=== PATIENT | male | born 1985 | race Two or more races ===

== ENCOUNTER 2025-01-30 23:54 | Inpatient (IN) | payer SELFPAY ==
[~2025-01-30] VITALS: Ht 170.2 cm; Wt 81.1 kg
[2025-01-31] VITALS (9 sets, daily range): BP systolic 99–127; BP diastolic 58–94; PULSE 40–110; RESP 16–20; TEMP 97.7–98.3; O2SAT 94–98
--- NOTE | 2025-01-31 00:38 | ED.PDOC ---
History of Present Illness HPI Comments 39 y/o M presents with 3x day history of diffused abdominal and bilateral leg swelling, orthopnea, constipation, and oliguria. Patient is a poor historian. He endorses on progressively worsening symptoms following initial, unprovoked onset. No prior history of symptoms in the past. Only significant history of DM I. Denies any chest or abdominal pain, palpitations, dizziness, nausea, vomiting, or further associated symptoms. Time Seen by MD: 00:20 Reviewed Notes: Nurses Notes, Medications, Allergies Allergies: Coded Allergies: NO KNOWN ALLERGIES (Unverified , 01/31/25) Information Source: Patient Mode of Arrival: Ambulatory Severity: Moderate Timing: Days Duration: Since onset Prehospital treatment: None Past Medical History PAST MEDICAL HISTORY: DM (type I ) Surgical History: Denies all surgeries Family History Family History: Unknown Social History Smoker: Non-Smoker Alcohol: Denies ETOH Use Drugs: Denies Drug Use Lives In: Home All Other Systems: Reviewed and Negative (Comprehensive systems review obtained and negative except for what is stated in the HPI.) Physical Exam General Appearance: No Apparent Distress, Normal HEENT: Normal ENT Inspection, Pharynx Normal, TMs Normal Neck: Full Range of Motion, Non-Tender, Normal, Normal Inspection Respiratory: Chest Non-Tender, Lungs Clear, No Accessory Muscle Use, No Respiratory Distress, Normal Breath Sounds Cardiovascular: No Edema, No JVD, No Murmur, No Gallop, Normal Peripheral Pulses, Regular Rate/Rhythm Breast Exam: Deferred Gastrointestinal: No Organomegaly, Non Tender, No Pulsatile Mass, Normal Bowel Sounds, Soft Genitalia: Deferred Pelvic: Deferred Rectal: Deferred Extremities: No calf tenderness, Normal capillary refill, Normal inspection, Normal range of motion, Non-tender, No pedal edema Musculoskeletal : Apperance: Normal 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 Was a procedure done?: No Differential Dx Considerations may include: new onset of heart failure, fluid retention, PE, URI, PNA, constipated, liver failure, among others X-Ray, Labs, Meds, VS Vital Signs Date Time Temp Pulse Resp B/P (MAP) Pulse Ox O2 Delivery O2 Flow Rate FiO2 7/1/25 00:44 97.7 60 16 11/75 (54) 98 97.7 Lab Test 01/31/25 01:24 01/31/25 00:43 Range/Units Troponin I High Sensitivity Pending 25 </=54 ng/L White Blood Count 8.4 4.4-10.8 10^3/uL Red Blood Count 5.21 4.5-5.90 10^6/uL Hemoglobin 15.2 13.5-17.5 g/dL Hematocrit 45.3 41.0-53.0 % Mean Corpuscular Volume 86.9 80.0-100.0 fL Mean Corpuscular Hemoglobin 29.2 28.0-32.0 pg Mean Corpuscular Hemoglobin Concent 33.6 32.0-36.0 g/dL Red Cell Distribution Width 14.7 H 11.8-14.3 % Platelet Count 195 140-450 10^3/uL Mean Platelet Volume 9.8 6.9-10.8 fL Neutrophils (%) (Auto) 59.8 37.0-80.0 % Lymphocytes (%) (Auto) 31.9 10.0-50.0 % Monocytes (%) (Auto) 7.5 0.0-12.0 % Eosinophils (%) (Auto) 0.5 0.0-7.0 % Basophils (%) (Auto) 0.3 0.0-2.0 % Neutrophils # (Auto) 5.0 1.6-8.6 10 ^3/uL Lymphocytes # (Auto) 2.7 0.4-5.4 10 ^3/uL Monocytes # (Auto) 0.6 0-1.3 10 ^3/uL Eosinophils # (Auto) 0 0-0.8 10 ^3/uL Basophils # (Auto) 0 0-0.2 10 ^3/uL Nucleated Red Blood Cells 0.2 % Sodium Level 139 136-145 mmol/L Potassium Level 4.9 3.5-5.1 mmol/L Chloride Level 106 98-107 mmol/L Carbon Dioxide Level 24 20-31 mmol/L Anion Gap 9 5-15 Blood Urea Nitrogen 22 9-23 mg/dL Creatinine 1.36 H 0.700-1.30 mg/dL Glomerular Filtration Rate Calc 67 >90 mL/min BUN/Creatinine Ratio 16.2 10.0-20.0 Serum Glucose 226 H 74-106 mg/dL Calcium Level 9.3 8.7-10.4 mg/dL B-Type Natriuretic Peptide 991.85 0-100 pg/mL Time of 1ST Reevaluation: 00:50 Reevaluation 1ST: Unchanged Patient Education/Counseling: Diagnosis, Treatment Family Education/Counseling: No Family Present Additional Information Reviewed patient's previous visit(s): N/A The following tests were ordered, and results were reviewed by me: CT abdomen/pelvis w/o contrast, CXR, CBC, BMP, BNP, troponin Additional information was gathered from interviewing the following independent historian: N/A I reviewed and agreed with the following test results read by other provider: CT abdomen/pelvis w/o contrast, CXR I discussed treatments and results with medical personnel and: Patient SEPSIS Sepsis Screen Physician Orders Chest Portable (01/31/25 00:28) Troponin-I Hs (01/31/25 01:28) Troponin-I Hs (01/31/25 03:28) Ct Ab Pel Wo Con-No Oral Or Iv (01/31/25 00:28) Vital Signs Date Time Temp Pulse Resp B/P (MAP) Pulse Ox O2 Delivery O2 Flow Rate FiO2 01/31/25 00:44 97.7 60 16 11/75 (54) 98 97.7 Laboratory Tests Test 01/31/25 00:43 White Blood Count 8.4 10^3/uL (4.4-10.8) Departure 1 Departure Time of Disposition: 02:07 (Patietn likely with volume overload from possible heart failure. will admit patient for further workup and expert consultaiton.) Impression: Primary Impression: Pleural effusion Additional Impression: Lower extremity edema Disposition: 09 ADMITTED INPATIENT Admit to: Med Surg Condition: Serious Critical Care Note Critical Care Time?: No Stability Stability form required: No Heart Score Heart Score: Heart Score Response (Comments) Value History N/A 0 EKG N/A 0 Age N/A 0 Risk Factors N/A 0 Troponin N/A 0 Total 0 I personally scribed for ELISE DUTTON MD ([email or web address]) on 01/31/25 at 00:38. Electronically submitted by Jamaal Huitron ([email or web address]). ELISE DUTTON MD Jan 31, 2025 00:38
[2025-01-31 01:00] LABS: Hematocrit 45.3 % (41.0-53.0); Hemoglobin 15.2 g/dL (13.5-17.5); Mean Corpuscular Hemoglobin 29.2 pg (28.0-32.0); Mean Corpuscular Volume 86.9 fL (80.0-100.0); Nucleated Red Blood Cells % 0.2 %
[2025-01-31 01:07] LABS: Chloride 106 mmol/L (98-107); Potassium 4.9 mmol/L (3.5-5.1); Sodium 139 mmol/L (136-145)
[2025-01-31 01:08] LABS: Anion Gap 9 (5-15); Carbon Dioxide 24 mmol/L (20-31)
[2025-01-31 01:09] LABS: Calcium 9.3 mg/dL (8.7-10.4)
--- NOTE | 2025-01-31 01:11 | DVH ---
CHEST RADIOGRAPH Indication: lower extremity swelling Technique: Single frontal view of the chest was obtained COMPARISON: None FINDINGS: Lines and Tubes: None Lungs: Clear Pleura: Small bilateral pleural effusions. No pneumothorax. Cardiomediastinal contours: Cardiomegaly. Bones: Unremarkable IMPRESSION: 1. Small bilateral pleural effusions and cardiomegaly.
[2025-01-31 01:13] LABS: BUN/Creatinine Ratio 16.2 (10.0-20.0); Blood Urea Nitrogen 22 mg/dL (9-23)
[2025-01-31 01:15] LABS: Glucose 226 mg/dL (74-106)
--- NOTE | 2025-01-31 01:41 | DVH ---
Exam: CT CT AB PEL WO CON-NO ORAL OR IV History: abdominal swelling Comparison Study: None Technique: Multidetector spiral CT of the abdomen was performed from lung bases to pubic symphysis. I maging was performed without IV contrast. Axial, coronal and sagittal multiplanar reformats were obta ined from the axial data set by the technologist. Radiation Dose : 1. Abdomen/Pelvis: CTDIvol 15.22 mGy, DLP 903.61 mGy*cm. Findings: Evaluation of solid organs is limited due to lack of intravenous contrast use. Lung Bases: Large bilateral pleural effusions, vgncg-kajfrza-gedp-left, with adjacent atelectasis and lobar collapse. Cardiomegaly and trace pericardial effusion. Liver: The liver is normal in size. No focal lesions. Gallbladder and Biliary Tree: Moderate pericholecystic edema. Spleen: Unremarkable Pancreas: The pancreas is grossly normal in appearance. Adrenal Glands: Unremarkable Kidneys: Kidneys are grossly normal without calculi or hydronephrosis. Bladder: Grossly unremarkable for degree of distention. Bowel: The stomach is grossly normal in appearance. Small bowel and colon are normal in caliber and d istribution. The appendix is not visualized; however, no secondary findings of acute appendicitis salo ntified. Ascites: Moderate abdominopelvic ascites. Lymphadenopathy: No mesenteric, retroperitoneal or periportal lymphadenopathy. Abdominal Wall and Mesentery: Unremarkable. Vasculature: The visualized abdominal aorta is normal in size and caliber. Atherosclerotic vascular c alcifications. Evaluation of abdominal and pelvic vessels is limited due to lack of intravenous cont rast. Pelvic Organs: Unremarkable Musculoskeletal: No aggressive focal bony lesions, acute fractures or dislocation. IMPRESSION: 1. Large bilateral pleural effusions, ambrb-ydtoeoi-uosa-left, with adjacent atelectasis and lobar co llapse. 2. Cardiomegaly and trace pericardial effusion. 3. Moderate pericholecystic edema. 4. Moderate abdominopelvic ascites. Radiation optimization: All CT scans at this facility use at least one of these dose optimization mahi hniques: automated exposure control mA and/or kV adjustment per patient size (includes targeted exam s where dose is matched to clinical indication) or iterative reconstruction.
[2025-01-31] MEDS: FUROSEMIDE 40 MG/4 ML VIAL IV ONE (03:50)
[2025-01-31] MEDS ORDERED: TEMAZEPAM 15 MG CAP PO PRN (04:15)
[2025-01-31] MEDS ORDERED: NITROGLYCERIN 0.4 MG SL TAB SL PRN (04:15)
[2025-01-31] MEDS ORDERED: ACETAMINOPHEN 325 MG TAB PO PRN (04:15)
[2025-01-31] MEDS ORDERED: DEXTROSE (50%) 50ML SYRG IV PRN (04:15)
[2025-01-31] MEDS ORDERED: MORPHINE SULFATE INJ 2 MG/ml SYRG IV PRN (04:15)
[2025-01-31] MEDS ORDERED: ONDANSETRON HCL 4 MG/2 ML VIAL IV PRN (04:15)
--- NOTE | 2025-01-31 04:21 | DVHHP2 ---
History of Present Illness Reason for Visit: Shortness for breath History of Present Illness 39-year-old male with a history of diabetes mellitus congestive heart failure presents for evaluation of shortness for breath. Patient reports a two day history of worsening shortness for breath with associated leg swelling, abdominal distention and orthopnea. Denies cough or fever. No other acute complaints reported Past Medical History Diabetes mellitus and congestive heart failure Past Surgical History Denies Family History Noncontributory Smoke: No ALCOHOL: occassional Drugs: None Lives: with Family Review of Systems Review of Systems Review of systems are currently negative otherwise addressed in HPI. Allergies: Coded Allergies: NO KNOWN ALLERGIES (Unverified , 01/31/25) Exam Vital Signs Vital Signs Date Time Temp Pulse Resp B/P (MAP) Pulse Ox O2 Delivery O2 Flow Rate FiO2 01/31/25 04:00 122/84 01/31/25 03:43 40 01/31/25 03:17 20 98 Room Air 01/31/25 03:17 97.8 97.8 Exam Gen: 39-year-old male in mild distress Skin: Warm, dry, normal color and texture, no rash. HEENT: Normocephalic atraumatic, mucous membranes moist and pink. Neck: Cervical and supraclavicular nodes normal without enlargement, trachea is midline, thyroid gland is normal without masses. Pulmonary: Clear to auscultation and percussion bilaterally. Cardiac: Regular rate and rhythm. No murmur Abdomen: Soft, nontender, nondistended, bowel sounds present all 4 quadrants, no guarding, no rigidity, no organomegaly. Extremities: No cyanosis, clubbing, assessment and bilateral pedal edema Neuro: Cranial nerves II through XII grossly intact, normal affect and speech, no focal motor deficits. Labs/Xrays ORDERING PHYSICIAN: ELISE DUTTON MD PROCEDURE(s): ABPL - CT AB PEL WO CON-NO ORAL OR IV REASON: abdominal swelling ORDER NUMBER(s): [id number], ACCESSION NUMBER(s): [id number] Exam: CT CT AB PEL WO CON-NO ORAL OR IV History: abdominal swelling Comparison Study: None Technique: Multidetector spiral CT of the abdomen was performed from lung bases to pubic symphysis. Imaging was performed without IV contrast. Axial, coronal and sagittal multiplanar reformats were obtained from the axial data set by the technologist. Radiation Dose : 1. Abdomen/Pelvis: CTDIvol 15.22 mGy, DLP 903.61 mGy*cm. Findings: Evaluation of solid organs is limited due to lack of intravenous contrast use. Lung Bases: Large bilateral pleural effusions, dbacm-hdewtgm-zjve-left, with adjacent atelectasis and lobar collapse. Cardiomegaly and trace pericardial effusion. Liver: The liver is normal in size. No focal lesions. Gallbladder and Biliary Tree: Moderate pericholecystic edema. Spleen: Unremarkable Pancreas: The pancreas is grossly normal in appearance. Adrenal Glands: Unremarkable Kidneys: Kidneys are grossly normal without calculi or hydronephrosis. Bladder: Grossly unremarkable for degree of distention. Bowel: The stomach is grossly normal in appearance. Small bowel and colon are normal in caliber and distribution. The appendix is not visualized; however, no secondary findings of acute appendicitis identified. Ascites: Moderate abdominopelvic ascites. Lymphadenopathy: No mesenteric, retroperitoneal or periportal lymphadenopathy. Abdominal Wall and Mesentery: Unremarkable. Vasculature: The visualized abdominal aorta is normal in size and caliber. Atherosclerotic vascular calcifications. Evaluation of abdominal and pelvic vessels is limited due to lack of intravenous contrast. Pelvic Organs: Unremarkable Musculoskeletal: No aggressive focal bony lesions, acute fractures or dislocation. IMPRESSION: 1. Large bilateral pleural effusions, vcatj-thoradx-nfgc-left, with adjacent atelectasis and lobar collapse. 2. Cardiomegaly and trace pericardial effusion. 3. Moderate pericholecystic edema. 4. Moderate abdominopelvic ascites. Radiation optimization: All CT scans at this facility use at least one of these dose optimization techniques: automated exposure control mA and/or kV adjustment per patient size (includes targeted exams where dose is matched to clinical indication) or iterative reconstruction. ATED BY: ROSIBEL CHEEK MD Labs Test 01/31/25 03:29 01/31/25 00:43 Range/Units Troponin I High Sensitivity 25 </=54 ng/L White Blood Count 8.4 4.4-10.8 10^3/uL Red Blood Count 5.21 4.5-5.90 10^6/uL Hemoglobin 15.2 13.5-17.5 g/dL Hematocrit 45.3 41.0-53.0 % Mean Corpuscular Volume 86.9 80.0-100.0 fL Mean Corpuscular Hemoglobin 29.2 28.0-32.0 pg Mean Corpuscular Hemoglobin Concent 33.6 32.0-36.0 g/dL Red Cell Distribution Width 14.7 H 11.8-14.3 % Platelet Count 195 140-450 10^3/uL Mean Platelet Volume 9.8 6.9-10.8 fL Neutrophils (%) (Auto) 59.8 37.0-80.0 % Lymphocytes (%) (Auto) 31.9 10.0-50.0 % Monocytes (%) (Auto) 7.5 0.0-12.0 % Eosinophils (%) (Auto) 0.5 0.0-7.0 % Basophils (%) (Auto) 0.3 0.0-2.0 % Neutrophils # (Auto) 5.0 1.6-8.6 10 ^3/uL Lymphocytes # (Auto) 2.7 0.4-5.4 10 ^3/uL Monocytes # (Auto) 0.6 0-1.3 10 ^3/uL Eosinophils # (Auto) 0 0-0.8 10 ^3/uL Basophils # (Auto) 0 0-0.2 10 ^3/uL Nucleated Red Blood Cells 0.2 % Sodium Level 139 136-145 mmol/L Potassium Level 4.9 3.5-5.1 mmol/L Chloride Level 106 98-107 mmol/L Carbon Dioxide Level 24 20-31 mmol/L Anion Gap 9 5-15 Blood Urea Nitrogen 22 9-23 mg/dL Creatinine 1.36 H 0.700-1.30 mg/dL Glomerular Filtration Rate Calc 67 >90 mL/min BUN/Creatinine Ratio 16.2 10.0-20.0 Serum Glucose 226 H 74-106 mg/dL Calcium Level 9.3 8.7-10.4 mg/dL B-Type Natriuretic Peptide 991.85 0-100 pg/mL Assessment/Plan Assessment/Plan Assessment Acute on chronic congestive heart failure Diabetes mellitus Acute kidney injury Bradycardia Plan Admit the patient to telemetry to the hospitalist Cardiology consult IV Lasix Resume home medications Continue treatment per orders. Plan discussed with: Patient My Orders Orders - ADAM CABAN Procedure Category Date Status Time Furosemide Injection PHA 01/31/25 Transmitted (Lasix Injection) 18:00 * Cardiology Consult CONS 01/31/25 Transmitted 04:13 Consistent DIET 01/31/25 Transmitted Carb(Ccho)Diabetes Breakfast Glucose Blood PHA 01/31/25 Transmitted (Accu-Chek Comfort 07:00 Mild Sliding Scale PHA 01/31/25 Transmitted 07:00 Dextrose 50% Syringe PHA 01/31/25 Transmitted 04:15 Admit ADMIT 01/31/25 Transmitted 04:13 Temazepam (Restoril) [facility] 01/31/25 Transmitted 04:[address] [facility] 01/31/25 Transmitted (Zofran) 04:15 Echo 2d Mode Cardiac US 01/31/25 Transmitted DOP 04:13 Condition: Stable [facility] 01/31/25 Transmitted 04:[address] [facility] 01/31/25 Transmitted (Tylenol Tablet) 04:15 Bedrest With Bathroom [facility] 01/31/25 Transmitted Privileg 04:[address] [facility] 01/31/25 Transmitted Sublingual (Ntrostat 04:[address] [facility] 01/31/25 Transmitted Injection 04:15 Stat Ekg For Chest [facility] 01/31/25 Transmitted Pain 04:13 Notify Md Of Changes [facility] 01/31/25 Transmitted From Base 04:13 Observatory Director For [facility] 01/31/25 Transmitted 24 Hours 04:13 Emergency Dysrhythmia [facility] 01/31/25 Transmitted Protocol 04:13 Rhythm Strips Once [facility] 01/31/25 Transmitted Every Shift 04:13 Oxygen By Nasal 01/31/25 Transmitted Cannula 04:13 Comprehensive LAB 02/01/25 Verified Metabolic Panel 04:[address] [facility] 01/31/25 Verified (Ventolin Medneb) 04:30 Date of Service: Jan 31, 2025 Billing Provider: ADAM CABAN Common Visit Codes: [id number] INP/OBS CARE (HIGH) ADAM CABAN Jan 31, 2025 04:21
[2025-01-31] MEDS ORDERED: ALBUTEROL SULF 2.5 MG/0.5ML(0.5%) NEB SOLN NEB PRN (04:30)
[2025-01-31] MEDS: ACCU-CHEK COMFORT CURVE STRIP VI SCH (06:22)
[2025-01-31] MEDS: InsuLIN REG 1unit/0.01ml Soln (100units/ml) SC SCH (06:24)
[2025-01-31 09:36] LABS: Alanine Aminotransferase 25.0 U/L (7-40); Albumin 4.6 g/dL (3.2-4.8); Alkaline Phosphatase 58.0 U/L (46-116); Bilirubin, Direct 0.4 mg/dL (<0.3); Bilirubin, Total 1.0 mg/dL (0.2-1.0); Cholesterol 150.0 mg/dL (< 200); HDL Cholesterol 34.0 mg/dL (40-59); Magnesium 1.8 mg/dL (1.6-2.6); Total Protein 6.7 g/dL (5.7-8.2); Triglycerides 146.0 mg/dL (< 150)
--- NOTE | 2025-01-31 11:06 | DVH ---
INDICATION: cirrhosis , pain TECHNIQUE: Multiple real-time sonographic images were obtained of the right upper quadrant. COMPARISON: None FINDINGS: The liver demonstrates coarsened echotexture without focal mass lesions. The liver measures 14 cm. The common duct is not well visualized due to obscuration from bowel gas. Trace ascites. P artially visualized small bilateral pleural effusion. The gallbladder is without evidence of stone or sludge. The gallbladder wall measures 3 mm and is wi thin normal limits. The right kidney measures 9.7 cm. The right kidney is normal in contour, size, and shape. The echoge nicity is normal. There is no hydronephrosis. The pancreas is not well visualized due to overlying bowel gas. IMPRESSION: Coarsened liver echotexture suggestive of chronic liver disease. Trace ascites. Partially visualize d small bilateral pleural effusion.
[2025-01-31] MEDS: FUROSEMIDE 20 MG/2 ML VIAL IV SCH (12:30)
--- NOTE | 2025-01-31 15:44 | DVHPN2 ---
Progress Note Date Seen: Jan 31, 2025 Resident Creating Document: ABDULKADIR GUARDADO RESDIANNIE Medical Necessity Reason Pt with a Central, PICC or Fol: No Objective vital signs Vital Sign Date Time Temp Pulse Resp B/P (MAP) Pulse Ox O2 Delivery O2 Flow Rate FiO2 01/31/25 13:18 98.0 97 16 104/58 (73) 97 98.0 01/31/25 08:25 Room Air* 0 21 medications Current Medications Medications Dose Ordered Sig/Shnaika Route Start Time Stop Time Status Last Admin Dose Admin Diagnostic Test (Pha) 1 strip ACHS 01/31/25 07:00 01/31/25 11:33 1 STRIP Insulin Human Regular ACHS SC 01/31/25 07:00 01/31/25 11:33 3 UNITS Dextrose 50 ml UD PRN IV 01/31/25 04:15 Ondansetron HCl 4 mg Q4HP PRN IV 01/31/25 04:15 Acetaminophen 650 mg Q6HP PRN PO 01/31/25 04:15 Nitroglycerin 0.4 mg Q5MINP PRN SL 01/31/25 04:15 Morphine Sulfate 2 mg Q30M PRN IV 01/31/25 04:15 Albuterol 2.5 mg Q6HPRN PRN NEB 01/31/25 04:30 Furosemide 40 mg BIDD IV 01/31/25 12:30 Empaglifozin 10 mg DAILY PO 02/01/25 10:00 laboratory and microbiology Laboratory Tests 01/31/25 00:43 Test 01/31/25 00:43 Range/Units Serum Glucose 226 H 74-106 mg/dL My Orders My Orders Orders - ABDULKADIR GUARDADO Procedure Category Date Status Time Drug Screen LAB 01/31/25 Logged 09:10 LIVER US 01/31/25 Resulted 09:14 Furosemide Injection PHA 01/31/25 In Process (Lasix Injection) 12:30 Strict I & O SANGITA 01/31/25 In Process 12:17 Empagliflozin PHA 02/01/25 In Process (Jardiance) 10:00 ABDULKADIR GUARDADO RESDIENT Jan 31, 2025 15:44
--- NOTE | 2025-01-31 15:57 | DVHCONRES ---
Date Seen: Jan 31, 2025 Resident Creating Document: ABDULKADIR GUARDADO RESDIENT History of Present Illness This is a 39-year-old male with past medical history of diabetes came to the hospital due to bilateral lower limb swelling and shortness of breaths. Per patient, he has exertional shortness of breaths since 2 months which has progressively worsened and prompted this visit. He also reports of orthopnea, PND, exertional chest discomfort and cough. He denies palpitation, fever, or any recent sick contacts and chest trauma. Patient does not have any PCP or pl sql developer, but was seen by a doctor 2 months back due to cough/shortness of breaths and was prescribed Lasix 20 mg daily, KCl, albuterol and cough suppressant. PMHx: Diabetes type 2 PSHx: Noncontributory Family history: Nonsignificant Social history: Denies smoking, alcohol or any other drug use Home medication: Lasix 20 mg daily, KCl 10 mEq daily, benzonatate and albuterol Allergic history: No known allergy Patient seen and examined at the bedside patient is still complaining of shortness of breaths and bilateral lower limb swelling. Family History: Patient reports no known family medical history. Allergies: Coded Allergies: NO KNOWN ALLERGIES (Unverified , 01/31/25) Home Meds Unable to Obtain Active Prescriptions or Reported Meds Current Medications Current Medications Medications (Trade) Dose Ordered Sig/Shanika Route PRN Reason Start Time Stop Time Status Last Admin Furosemide (Lasix Injection) 20 mg BIDD IV 01/31/25 18:00 01/31/25 12:19 DC Diagnostic Test (Pha) (Accu-Chek Comfort Curve T) 1 strip ACHS 01/31/25 07:00 01/31/25 11:33 Insulin Human Regular (InsuLIN R) ACHS SC 01/31/25 07:00 01/31/25 11:33 Dextrose 50 ml UD PRN IV Blood Sugar LESS THAN 60 01/31/25 04:15 Temazepam (Restoril) 15 mg QHSP PRN PO FOR INSOMNIA 01/31/25 04:15 01/31/25 11:28 DC Ondansetron HCl (Zofran) 4 mg Q4HP PRN IV NAUSEA / VOMITING 01/31/25 04:15 Acetaminophen (Tylenol Tablet) 650 mg Q6HP PRN PO PAIN SCALE 1-3 OR TEMP>100.4 01/31/25 04:15 Nitroglycerin (Ntrostat Sublingual) 0.4 mg Q5MINP PRN SL FOR CHEST PAIN 01/31/25 04:15 Morphine Sulfate 2 mg Q30M PRN IV FOR CHEST PAIN 01/31/25 04:15 Albuterol (Ventolin Medneb) 2.5 mg Q6HPRN PRN NEB SHORTNESS OF BREATH 01/31/25 04:30 Furosemide (Lasix Injection) 40 mg BIDD IV 01/31/25 12:30 Empaglifozin (Jardiance) 10 mg DAILY PO 02/01/25 10:00 Vital Signs Vital Signs Date Time Temp Pulse Resp B/P (MAP) Pulse Ox O2 Delivery O2 Flow Rate FiO2 01/31/25 13:18 98.0 97 16 104/58 (73) 97 98.0 01/31/25 08:25 Room Air* 0 21 Physical Exam General Appearance: Alert, Oriented X3, Cooperative, No acute distress HEENT: Atraumatic, PERRLA, EOMI, Mucous membrane moist/pink Respiratory: Bilateral mid zone crackles, and bilaterally decreased breath sound Cardiovascular: Regular rate, Normal S1, Normal S2, No murmurs, no chest wall tenderness Abdominal: Abdomen distended, soft and nontender Extremities: Bilateral lower limb grade 3 pedal edema Skin: No rashes, No breakdown, No significant lesion Neuro: Normal gait, Normal speech, Strength at 5/5 X4 ext, Normal tone, Sensation intact, Cranial nerves 3-12 NL, Reflexes 2+ Psych/Mental Status: Mental status NL, Mood NL Labs/Diagnostic Data Labs Test 01/31/25 11:11 01/31/25 09:25 01/31/25 03:29 01/31/25 01:24 Range/Units POC Glucose 170 H 70-106 mg/dl Plasma/Serum Blood Alcohol < 3.0 <10 mg/dL Troponin I High Sensitivity 25 </=54 ng/L Thyroid Stimulating Hormone (TSH) 4.18 0.55-4.78 uIU/mL Magnesium Level 1.8 1.6-2.6 mg/dL Total Bilirubin 1.0 0.2-1.0 mg/dL Direct Bilirubin 0.4 H <0.3 mg/dL Aspartate Amino Transferase (AST) 21 13-40 U/L Alanine Aminotransferase (ALT) 25 7-40 U/L Alkaline Phosphatase 58 46-116 U/L Total Protein 6.7 5.7-8.2 g/dL Albumin 4.6 3.2-4.8 g/dL Triglycerides Level 146 < 150 mg/dL Cholesterol Level 150 < 200 mg/dL LDL Cholesterol 107 H < 100 mg/dL HDL Cholesterol 34 L 40-59 mg/dL Test 01/31/25 00:43 Range/Units White Blood Count 8.4 4.4-10.8 10^3/uL Red Blood Count 5.21 4.5-5.90 10^6/uL Hemoglobin 15.2 13.5-17.5 g/dL Hematocrit 45.3 41.0-53.0 % Mean Corpuscular Volume 86.9 80.0-100.0 fL Mean Corpuscular Hemoglobin 29.2 28.0-32.0 pg Mean Corpuscular Hemoglobin Concent 33.6 32.0-36.0 g/dL Red Cell Distribution Width 14.7 H 11.8-14.3 % Platelet Count 195 140-450 10^3/uL Mean Platelet Volume 9.8 6.9-10.8 fL Neutrophils (%) (Auto) 59.8 37.0-80.0 % Lymphocytes (%) (Auto) 31.9 10.0-50.0 % Monocytes (%) (Auto) 7.5 0.0-12.0 % Eosinophils (%) (Auto) 0.5 0.0-7.0 % Basophils (%) (Auto) 0.3 0.0-2.0 % Neutrophils # (Auto) 5.0 1.6-8.6 10 ^3/uL Lymphocytes # (Auto) 2.7 0.4-5.4 10 ^3/uL Monocytes # (Auto) 0.6 0-1.3 10 ^3/uL Eosinophils # (Auto) 0 0-0.8 10 ^3/uL Basophils # (Auto) 0 0-0.2 10 ^3/uL Nucleated Red Blood Cells 0.2 % Sodium Level 139 136-145 mmol/L Potassium Level 4.9 3.5-5.1 mmol/L Chloride Level 106 98-107 mmol/L Carbon Dioxide Level 24 20-31 mmol/L Anion Gap 9 5-15 Blood Urea Nitrogen 22 9-23 mg/dL Creatinine 1.36 H 0.700-1.30 mg/dL Glomerular Filtration Rate Calc 67 >90 mL/min BUN/Creatinine Ratio 16.2 10.0-20.0 Serum Glucose 226 H 74-106 mg/dL Hemoglobin A1c 9.9 H <5.7 % A1C Calcium Level 9.3 8.7-10.4 mg/dL B-Type Natriuretic Peptide 991.85 0-100 pg/mL Assessment Acute on chronic systolic heart failure Volume overload, likely due to systolic heart failure Pleural effusion, likely due to systolic heart failure ? Sick sinus syndrome, tachycardia bradycardia Uncontrolled diabetes type 2 with hyperglycemia HECTOR, likely VMN Obesity Chronic liver disease, unknown etiology Ascites, likely due to chronic liver disease * EKGs shows sinus tachycardia with occasional PVCs * Serial trop I is normal, BNP raised at 911 * CT scan shows large bilateral pleural effusion, cardiomegaly with trace pericardial effusion, Mild rate abdominopelvic ascites * Echo shows generalized hypokinesia with EF 50%, severe MR severe TR Plan/recommendation (Case discussed with Dr. Lu) * IV diuretic Lasix 80 mg BID and metolazone 10 mg daily * We gradually start on GDMT, and we will adjust according to the patient's hemodynamic status * Started on Jardiance 10 mg daily, and spironolactone 25 mg daily * Once volume overload resolved, we will plan for left heart catheterization * We will follow up with the patient * Rest of plan per primary team Thank you for given as the opportunity to take care of your patient, please call back if you have any question/concern Plan discussed with: Patient, Other (RN) ABDULKADIR GUARDADO [facility] Jan 31, 2025 15:57
[2025-01-31] MEDS: SPIRONOLACTONE 25 MG TAB PO ONE (16:24)
--- NOTE | 2025-01-31 16:57 | DVHPNRES ---
Progress Note Date Seen: Jan 31, 2025 Resident Creating Document: MARCELO SALAS RESIDENT Has the PT tested + for MRSA If YES, has PT been informed?: No Medical Necessity Reason Pt with a Central, PICC or Fol: No Subjective Review of Systems This is a 39-year-old male with a history of diabetes mellitus, chronic congestive heart failure 2024, presented to the ER for evaluation of shortness for breath. Patient reports a two day history of worsening shortness for breath associated with chest pain and 1 week of bilateral lower limb edema and abdominal distention, and orthopnea. Denies cough or fever. No other acute complaints reported. On the ER vital signes showed HR 50/min BP 99/59 mm hg, Sat O2 97% , X-ray showed pleural effusion and cardiomegaly, CT Scan showed: Large bilateral pleural effusions, [id number], with adjacent atelectasis and lobar collapse, Cardiomegaly and trace pericardial effusion, Moderate abdominopelvic ascites. The patient was seen and examined at bedside. Today, patient report improvement of shortness of breath. Vital signs were reviewed. EKG: Sinus tachycardia with occasional PVCs, ECHO was done, pending official report, cardiac constul was ordered. We will consider reasses right sided pleural effusion tomorrow AM, if is still significant will performed right sided thorachocentesis. follow up closely this patient. ROS Constitutional: Denies weight loss, fever and chills. HEENT: Denies changes in vision and hearing. Respiratory: reports shortness of breath Cardiovascular: Denies chest discomfort or palpitations GI: Mild abdomen distended, abdominal pain, no mases. : Denies dysuria and urinary frequency. Musculoskeletal: Denies myalgias and joint pain. Skin: Denies rash and pruritus. Neurological: Denies dizziness, headache, vision or hearing problems Exam Gen: 39-year-old male in mild distress Skin: Warm, dry, normal color and texture, no rash. HEENT: Normocephalic atraumatic, mucous membranes moist and pink. Neck: Cervical and supraclavicular nodes normal without enlargement, trachea is midline, thyroid gland is normal without masses. Pulmonary: minimal crackles on lung bases. Cardiac: Regular rate and rhythm. No murmur Abdomen: Soft, mild distended, tenderness on right and left abdominal upper quadrant. Extremities: No cyanosis or clubbing. Patient presents bilateral pedal edema, no fovea. Neuro: Cranial nerves II through XII grossly intact, normal affect and speech, no focal motor deficits. Objective vital signs Vital Sign Date Time Temp Pulse Resp B/P (MAP) Pulse Ox O2 Delivery O2 Flow Rate FiO2 01/31/25 13:18 98.0 97 16 104/58 (73) 97 98.0 01/31/25 08:25 Room Air* 0 21 medications Current Medications Medications Dose Ordered Sig/Shanika Route Start Time Stop Time Status Last Admin Dose Admin Diagnostic Test (Pha) 1 strip ACHS 01/31/25 07:00 01/31/25 11:33 1 STRIP Insulin Human Regular ACHS SC 01/31/25 07:00 01/31/25 11:33 3 UNITS Dextrose 50 ml UD PRN IV 01/31/25 04:15 Ondansetron HCl 4 mg Q4HP PRN IV 01/31/25 04:15 Acetaminophen 650 mg Q6HP PRN PO 01/31/25 04:15 Nitroglycerin 0.4 mg Q5MINP PRN SL 01/31/25 04:15 Morphine Sulfate 2 mg Q30M PRN IV 01/31/25 04:15 Albuterol 2.5 mg Q6HPRN PRN NEB 01/31/25 04:30 Furosemide 40 mg BIDD IV 01/31/25 12:30 Empaglifozin 10 mg DAILY PO 02/01/25 10:00 laboratory and microbiology Laboratory Tests 01/31/25 00:43 Test 01/31/25 00:43 Range/Units Serum Glucose 226 H 74-106 mg/dL Problem List/Assessment/Plan Problem List/Assessment/Plan Assessment/Plan Acute hypoxic respiratory failure/ Acute on chronic congestive heart failure diastolic vs systolic. -Lasix 40 mg IV BID -Spironolactone 25mg PO -Empagliflozin 10 mg PO -EKG: Sinus tachycardia with occasional PVCs. -ECHO performed, pending results. -Cardiology Consult Bilateral Pleural effusion, more prominent on the rigth side. CT perfomed: showed billateral pleural effusion, also small pericardial effusion. We will reassess right sided pleural effusion to determinate the need for right torachocentesis. -Furosemide 40mg IV BID Diabetes mellitus type II with Hyperglycemia -Mild dose insulin sliding scale. Acute kidney injury, likely due to VMN in the setting of CHF exacerbation -BUN 22 -Crea; 1.36 -Monitor daily kidney function. Hypothyroidism, ruled out TSH 4.18 within normal limits. Tachy-Bradycardia syndrome -Bradycardia on admission with occasional tachycardia episodes. RO Nephrotic Syndrome -UA/Urine protein in urine Goals of care discusses with the patient. Continue treatment per orders. Goals of care discussed with the patient and health care consultant at bedside for >35min, FULL CODE Plan discussed with Dr. Muir Plan discussed with: Patient My Orders My Orders Orders - MARCELO SALAS Procedure Category Date Status Time Electrocardigram EKG 01/31/25 Logged 09:14 Cardiac DIET 01/31/25 Transmitted Diet-2gna,Lofat,Lochol Lunch Strict I & O SANGITA 01/31/25 In Process 12:06 Complete Blood Count LAB 02/01/25 Verified 04:00 Basic Metabolic Panel LAB 02/01/25 Verified 04:00 MARCELO SALAS RESIDENT Jan 31, 2025 16:57
[2025-01-31] MEDS ORDERED: FUROSEMIDE 20 MG/2 ML VIAL IV SCH (18:00)
[2025-01-31 18:31] LABS: Protein, Urine 6.8 mg/dL (1-14)
[2025-01-31 18:32] LABS: Urine Protein, UAD Negative (Negative)
[2025-01-31 18:36] LABS: Amphetamine Screen, Urine Neg (NEGATIVE); Barbiturate Scree,Urine Neg (NEGATIVE); Benzodiazephine Screen, Urine Neg (NEGATIVE); Cannabinoid Screen, Urine Neg (NEGATIVE); Cocaine Screen, Urine Neg (NEGATIVE); Opiate Scree,Urine Neg (NEGATIVE); Phencyclidine Screen, Urine Neg (NEGATIVE)
[2025-01-31] MEDS: FUROSEMIDE 20 MG/2 ML VIAL IV ONE (20:00)
--- NOTE | 2025-01-31 21:58 | DVHSR ---
APPROVED REPORT EXAM: Two-dimensional and M-mode echocardiogram with Doppler and color Doppler. Blood Pressure: 108/75 mmHg INDICATION EF RISK FACTORS Height: 5'7", Weight: 193 DIMENSIONS LVDd5.9 (3.8-5.7cm)LA (2D)4.0 (1.9-4.0cm)Aortic Root3.4 (2.0-3.7cm) LVDs5.6 (2.5-4.0cm)LA (MM) (1.9-4.0cm)Aortic Cusp Exc1.7 (1.5-2.0cm) EF (%) 10.0 (55-70%)Rt. Atrium4.4 (1.9-4.0cm)Asc. Aorta cm IVSd0.9 (0.7-1.1cm)RV (D)5.0 (1.8-2.4cm) PWd0.8 (0.7-1.1cm) Mitral Valve MitralMitral Stenosis E wave1.19m/sMV Mean GR.mmHg E/A ratio0.02D MVAcm2 Aortic Valve Aortic ValveAortic Stenosis V10.50m/Jeanne Mean GR.1mmHg V20.71m/Jeanne Peak GR.2mmHg LVOT Diameter2.3 (1.8-2.4cm)Doppler AVA2.92cm2 Pulmonic Valve V20.70m/s Tricuspid Valve TR Velocity3.45m/s [id number] Conclusion REMARKABLY DILATED ALL CARDIAC CHAMBERS SEVERE LV AND RV GLOBAL HYPOKINESIS LV EF IS ONLY 10% SEVERE MR AND TR SEVERE PULMONARY HYPERTENSION RVSP IS 56 MM OF HG AND IS VERY HIGH LARGE PLEURAL EFFUSION NO PERICARDIALEFFUSION
[2025-02-01] VITALS (8 sets, daily range): BP systolic 96–108; BP diastolic 66–80; PULSE 40–110; RESP 14–20; TEMP 97.3–98.3; O2SAT 94–97
--- NOTE | 2025-02-01 00:11 | DVHINCON2 ---
Date of service: Jan 31, 2025 Referring Physician Andrea Reason for Consultation CHF History of Present Illness This is a 39-year-old male with past medical history of diabetes presented to the ED due to bilateral lower limb swelling and shortness of breaths. Per patient, he has exertional shortness of breaths since 2 months which has progressively worsened and prompted this visit. He also reports of orthopnea, PND, exertional chest discomfort and cough. He denies palpitation, fever, or any recent sick contacts and chest trauma. Patient does not have any PCP or network planner, but was seen by a doctor 2 months back due to cough/shortness of breaths and was prescribed Lasix 20 mg daily, KCl, albuterol and cough suppressant. EKGs shows sinus tachycardia with occasional PVCs. Serial trop I is normal, BNP raised at 911. CT scan shows large bilateral pleural effusion, cardiomegaly with trace pericardial effusion, mild rate abdominopelvic ascites. Patient was admitted to the hospital. I am asked to consult on this patient. Past Medical History Diabetes type 2 Past Surgical History Noncontributory Family History: Patient reports no known family medical history. Allergies: Coded Allergies: NO KNOWN ALLERGIES (Unverified , 01/31/25) Home Meds Unable to Obtain Active Prescriptions or Reported Meds Current Medications Current Medications Medications (Trade) Dose Ordered Sig/Shanika Route PRN Reason Start Time Stop Time Status Last Admin Furosemide (Lasix Injection) 20 mg BIDD IV 01/31/25 18:00 01/31/25 12:19 DC Diagnostic Test (Pha) (Accu-Chek Comfort Curve T) 1 strip ACHS 01/31/25 07:00 01/31/25 21:27 Insulin Human Regular (InsuLIN R) ACHS SC 01/31/25 07:00 01/31/25 21:46 Dextrose 50 ml UD PRN IV Blood Sugar LESS THAN 60 01/31/25 04:15 Temazepam (Restoril) 15 mg QHSP PRN PO FOR INSOMNIA 01/31/25 04:15 01/31/25 11:28 DC Ondansetron HCl (Zofran) 4 mg Q4HP PRN IV NAUSEA / VOMITING 01/31/25 04:15 Acetaminophen (Tylenol Tablet) 650 mg Q6HP PRN PO PAIN SCALE 1-3 OR TEMP>100.4 01/31/25 04:15 Nitroglycerin (Ntrostat Sublingual) 0.4 mg Q5MINP PRN SL FOR CHEST PAIN 01/31/25 04:15 Morphine Sulfate 2 mg Q30M PRN IV FOR CHEST PAIN 01/31/25 04:15 Albuterol (Ventolin Medneb) 2.5 mg Q6HPRN PRN NEB SHORTNESS OF BREATH 01/31/25 04:30 Furosemide (Lasix Injection) 40 mg BIDD IV 01/31/25 12:30 01/31/25 19:18 DC 01/31/25 17:55 Empaglifozin (Jardiance) 10 mg DAILY PO 02/01/25 10:00 Spironolactone (Aldactone) 25 mg DAILY PO 02/01/25 10:00 Furosemide (Lasix Injection) 80 mg BIDD IV 02/01/25 06:00 Metolazone (Zaroxolyn) 10 mg DAILY PO 02/01/25 10:00 Review of Systems All Other Systems: Reviewed and Negative (Comprehensive systems review obtained and negative except for what is stated in the HPI.) Vital Signs Vital Signs Date Time Temp Pulse Resp B/P (MAP) Pulse Ox O2 Delivery O2 Flow Rate FiO2 01/31/25 21:00 98.3 110 18 110/73 (85) 96 98.3 01/31/25 20:20 Room Air 01/31/25 20:20 0 21 Physical Exam GENERAL: Alert and oriented x 3. No acute distress. Obese EYES: PERRL, EOMI. Anicteric. HENT: Moist mucous membranes. LUNGS: Bilateral mid zone crackles, and bilaterally decreased breath sounds. CARDIOVASCULAR: Regular rate and rhythm. ABDOMEN: Distended, soft, non-tender. EXTREMITIES: 3+ BLE edema. NEUROLOGIC: No focal neurological deficits. SKIN: Warm, dry. Labs/Diagnostic Data Labs Test 01/31/25 21:29 01/31/25 17:10 01/31/25 09:25 01/31/25 03:29 Range/Units POC Glucose 196 H 70-106 mg/dl Urine Color Light-yellow Yellow Urine Clarity Clear Clear Urine pH 5.0 5.0-9.0 Urine Specific [place] 1.009 1.001-1.035 Urine Protein Negative Negative Urine Ketones Negative Negative Urine Blood Negative Negative /uL Urine Nitrite Negative Negative Urine Bilirubin Negative Negative Urine Urobilinogen Normal Negative mg/dL Urine Leukocyte Esterase Negative Negative /uL Urine RBC <1 0 - 3 /hpf Urine Microscopic WBC < 1 0-3 /HPF Urine Squamous Epithelial Cells None seen <5 /hpf Urine Bacteria None seen None Seen /hpf Urine Creatinine 72.45 30.0-125.0 mg/dL Urine Sodium 48 40-220 mmol/L Urine Glucose Normal Normal mg/dL Urine Total Protein 6.8 1-14 mg/dL Urine Opiates Screen Neg NEGATIVE Urine Fentanyl Screen Neg NEGATIVE Urine Barbiturates Screen Neg NEGATIVE Urine Phencyclidine Screen Neg NEGATIVE Urine Amphetamines Screen Neg NEGATIVE Urine Benzodiazepines Screen Neg NEGATIVE Urine Cocaine Screen Neg NEGATIVE Urine Cannabinoids Screen Neg NEGATIVE Plasma/Serum Blood Alcohol < 3.0 <10 mg/dL Troponin I High Sensitivity 25 </=54 ng/L Thyroid Stimulating Hormone (TSH) 4.18 0.55-4.78 uIU/mL Test 01/31/25 01:24 01/31/25 00:43 Range/Units Magnesium Level 1.8 1.6-2.6 mg/dL Total Bilirubin 1.0 0.2-1.0 mg/dL Direct Bilirubin 0.4 H <0.3 mg/dL Aspartate Amino Transferase (AST) 21 13-40 U/L Alanine Aminotransferase (ALT) 25 7-40 U/L Alkaline Phosphatase 58 46-116 U/L Total Protein 6.7 5.7-8.2 g/dL Albumin 4.6 3.2-4.8 g/dL Triglycerides Level 146 < 150 mg/dL Cholesterol Level 150 < 200 mg/dL LDL Cholesterol 107 H < 100 mg/dL HDL Cholesterol 34 L 40-59 mg/dL White Blood Count 8.4 4.4-10.8 10^3/uL Red Blood Count 5.21 4.5-5.90 10^6/uL Hemoglobin 15.2 13.5-17.5 g/dL Hematocrit 45.3 41.0-53.0 % Mean Corpuscular Volume 86.9 80.0-100.0 fL Mean Corpuscular Hemoglobin 29.2 28.0-32.0 pg Mean Corpuscular Hemoglobin Concent 33.6 32.0-36.0 g/dL Red Cell Distribution Width 14.7 H 11.8-14.3 % Platelet Count 195 140-450 10^3/uL Mean Platelet Volume 9.8 6.9-10.8 fL Neutrophils (%) (Auto) 59.8 37.0-80.0 % Lymphocytes (%) (Auto) 31.9 10.0-50.0 % Monocytes (%) (Auto) 7.5 0.0-12.0 % Eosinophils (%) (Auto) 0.5 0.0-7.0 % Basophils (%) (Auto) 0.3 0.0-2.0 % Neutrophils # (Auto) 5.0 1.6-8.6 10 ^3/uL Lymphocytes # (Auto) 2.7 0.4-5.4 10 ^3/uL Monocytes # (Auto) 0.6 0-1.3 10 ^3/uL Eosinophils # (Auto) 0 0-0.8 10 ^3/uL Basophils # (Auto) 0 0-0.2 10 ^3/uL Nucleated Red Blood Cells 0.2 % Sodium Level 139 136-145 mmol/L Potassium Level 4.9 3.5-5.1 mmol/L Chloride Level 106 98-107 mmol/L Carbon Dioxide Level 24 20-31 mmol/L Anion Gap 9 5-15 Blood Urea Nitrogen 22 9-23 mg/dL Creatinine 1.36 H 0.700-1.30 mg/dL Glomerular Filtration Rate Calc 67 >90 mL/min BUN/Creatinine Ratio 16.2 10.0-20.0 Serum Glucose 226 H 74-106 mg/dL Hemoglobin A1c 9.9 H <5.7 % A1C Calcium Level 9.3 8.7-10.4 mg/dL B-Type Natriuretic Peptide 991.85 0-100 pg/mL Assessment Acute on chronic systolic heart failure. Volume overload, likely due to systolic heart failure. Pleural effusion, likely due to systolic heart failure. ? Sick sinus syndrome, tachycardia bradycardia. Uncontrolled diabetes type 2 with hyperglycemia. HECTOR, likely VMN. Obesity. Chronic liver disease, unknown etiology. Ascites, likely due to chronic liver disease. Plan/Recommendation I agree with your ongoing assessment and care of plan. Patient has been seen by Michell Garnett, resident on my behalf. We have discussed the plan with the patient. IV diuretic Lasix 80 mg BID and metolazone 10 mg daily. We gradually start on GDMT, and we will adjust according to the patient's hemodynamic status. Started on Jardiance 10 mg daily, and spironolactone 25 mg daily. Once volume overload resolved, we will plan for left heart catheterization. We will follow up with the patient. Rest of plan per primary team. Additional plan as per the hospital course. Plan discussed with: Patient LANA JOSE MD Feb 01, 2025 00:11
[2025-02-01] MEDS: FUROSEMIDE 20 MG/2 ML VIAL IV SCH (05:44)
[2025-02-01 06:44] LABS: Alanine Aminotransferase 26 U/L (7-40); Albumin 4.3 g/dL (3.2-4.8); Alkaline Phosphatase 49 U/L (46-116); Anion Gap 11 (5-15); BUN/Creatinine Ratio 17.7 (10.0-20.0); Calcium 9.4 mg/dL (8.7-10.4); Carbon Dioxide 28 mmol/L (20-31); Chloride 103 mmol/L (98-107); Glucose 99 mg/dL (74-106); Potassium 3.5 mmol/L (3.5-5.1); Sodium 142 mmol/L (136-145); Total Protein 6.5 g/dL (5.7-8.2)
[2025-02-01 06:46] LABS: Hematocrit 42.2 % (41.0-53.0); Hemoglobin 14.4 g/dL (13.5-17.5); Mean Corpuscular Hemoglobin 29.4 pg (28.0-32.0); Mean Corpuscular Volume 86.3 fL (80.0-100.0); Nucleated Red Blood Cells % 0.0 %
[2025-02-01 06:48] LABS: Bilirubin, Total 1.7 mg/dL (0.2-1.0); Blood Urea Nitrogen 23 mg/dL (9-23)
[2025-02-01] MEDS: EMPAGLIFLOZIN 10 MG TAB PO SCH (09:44)
[2025-02-01] MEDS: SPIRONOLACTONE 25 MG TAB PO SCH (09:44)
--- NOTE | 2025-02-01 11:06 | DVHPN2 ---
Progress Note Date Seen: Feb 01, 2025 Resident Creating Document: ABDULKADIR GUARDADO LOUISA Has the PT tested + for MRSA If YES, has PT been informed?: No Medical Necessity Reason Pt with a Central, PICC or Fol: No Subjective Review of Systems Patient seen and examined at the bedside. Patient is feeling better since admission, pedal edema has been better Patient reports: No new complaints Changes from previous H/P or p: Changes Objective vital signs Vital Sign Date Time Temp Pulse Resp B/P (MAP) Pulse Ox O2 Delivery O2 Flow Rate FiO2 02/01/25 09:44 105/74 02/01/25 08:30 97.5 55 16 95 97.5 02/01/25 08:00 Room Air* 0 21 Total Intake and Output 01/31/25 01/31/25 02/01/25 15:00 23:00 07:00 Intake Total 250 ml 1000 ml Output Total 500 ml 2100 ml Balance -250 ml -1100 ml medications Current Medications Medications Dose Ordered Sig/Shanika Route Start Time Stop Time Status Last Admin Dose Admin Diagnostic Test (Pha) 1 strip ACHS 01/31/25 07:00 02/01/25 06:09 1 STRIP Insulin Human Regular ACHS SC 01/31/25 07:00 01/31/25 21:46 3 UNITS Dextrose 50 ml UD PRN IV 01/31/25 04:15 Ondansetron HCl 4 mg Q4HP PRN IV 01/31/25 04:15 Acetaminophen 650 mg Q6HP PRN PO 01/31/25 04:15 Nitroglycerin 0.4 mg Q5MINP PRN SL 01/31/25 04:15 Morphine Sulfate 2 mg Q30M PRN IV 01/31/25 04:15 Albuterol 2.5 mg Q6HPRN PRN NEB 01/31/25 04:30 Empaglifozin 10 mg DAILY PO 02/01/25 10:00 02/01/25 09:44 10 MG Spironolactone 25 mg DAILY PO 02/01/25 10:00 02/01/25 09:44 25 MG Furosemide 80 mg BIDD IV 02/01/25 06:00 Metolazone 10 mg DAILY PO 02/01/25 10:00 02/01/25 09:44 10 MG Examination General Appearance: Alert, Oriented X3, Cooperative, No acute distress HEENT: Atraumatic, PERRLA, EOMI, Mucous membrane moist/pink Respiratory: Bilateral decreased breath sound on lower zone Cardiovascular: Regular rate, Normal S1, Normal S2, No murmurs, no chest wall tenderness Abdominal: Normal bowel sounds, Soft, No tenderness, No hepatospenomegaly, No masses Extremities: Bilateral grade 1-2 pitting pedal edema Skin: No rashes, No breakdown, No significant lesion Neuro: Normal gait, Normal speech, Strength at 5/5 X4 ext, Normal tone, Sensation intact, Cranial nerves 3-12 NL, Reflexes 2+ Psych/Mental Status: Mental status NL, Mood NL laboratory and microbiology Laboratory Tests 02/01/25 05:09 Test 02/01/25 05:09 Range/Units Serum Glucose 99 # 74-106 mg/dL Labs and/or images reviewed: Labs reviewed by me, Image(s) reviewed by me Problem List/Assessment/Plan Problem List/Assessment/Plan Acute on chronic systolic heart failure Volume overload, likely due to systolic heart failure Pleural effusion, likely due to systolic heart failure ? Sick sinus syndrome, tachycardia bradycardia Uncontrolled diabetes type 2 with hyperglycemia HECTOR, likely VMN Obesity Chronic liver disease, unknown etiology Ascites, likely due to chronic liver disease * EKGs shows sinus tachycardia with occasional PVCs * Serial trop I is normal, BNP raised at 911 * CT scan shows large bilateral pleural effusion, cardiomegaly with trace pericardial effusion, Mild rate abdominopelvic ascites * Echo shows generalized hypokinesia with EF 10%, severe MR severe TR Plan/recommendation (Case discussed with Dr. Lu) * continue IV diuretic Lasix 80 mg BID and metolazone 10 mg daily in hospital * We gradually start on GDMT, and we will adjust according to the patient's hemodynamic status * DC plan from cardiology standpoint: Jardiance 10mg daily, spironolcatone 25mg, metoprolol 50mg daily, Entresto BID, lasix 20 mg daily * we sign off the patient, may follow with Dr. Mary in office. * Rest of plan per primary team Thank you for given as the opportunity to take care of your patient, please call back if you have any question/concern Plan discussed with: Patient, Other (RN) My Orders My Orders Orders - ABDULKADIR GUARDADO RESDIANNIE Procedure Category Date Status Time Strict I & O SANGITA 01/31/25 In Process 12:17 Empagliflozin PHA 02/01/25 In Process (Jardiance) 10:00 Spironolactone PHA 02/01/25 In Process (Aldactone) 10:00 Metolazone (Zaroxolyn) PHA 02/01/25 In Process 10:00 Furosemide Injection PHA 02/01/25 In Process (Lasix Injection) 06:00 ABDULKADIR GUARDADO Feb 01, 2025 11:06
--- NOTE | 2025-02-01 15:19 | ECG ---
[facility] Test Date: 2025-01-31 Test Time: 09:25:44 Pat Name: OSCAR BRAGG Department: Room: [facility] Gender: M Tailor'S Aide: nubia : 1985 Requested By: MARCELO SALAS Order Number: [id number] Reading MD: Dada Crawford Measurements Intervals [place] Rate: 119 P: 73 GA: 174 QRS: 56 QRSD: 79 T: 55 QT: 302 QTc: 425 Interpretive Statements Sinus tachycardia Electronically Signed On 02-03-2025 9:33:34 PDT by Dada Crawford Please click the below link to view image of tracing.
--- NOTE | 2025-02-01 15:34 | DVHPNRES ---
Progress Note Date Seen: Feb 01, 2025 Resident Creating Document: MARCELO SALAS RESIDENT Has the PT tested + for MRSA If YES, has PT been informed?: No Medical Necessity Reason Pt with a Central, PICC or Fol: No Subjective Review of Systems This is a 39-year-old male with a history of diabetes mellitus, chronic congestive heart failure 2024, presented to the ER for evaluation of shortness for breath. Patient reports a two day history of worsening shortness for breath associated with chest pain and 1 week of bilateral lower limb edema and abdominal distention, and orthopnea. Denies cough or fever. No other acute complaints reported. On the ER vital signes showed HR 50/min BP 99/59 mm hg, Sat O2 97% , X-ray showed pleural effusion and cardiomegaly, CT Scan showed: Large bilateral pleural effusions, [id number], with adjacent atelectasis and lobar collapse, Cardiomegaly and trace pericardial effusion, Moderate abdominopelvic ascites. The patient was seen and examined at bedside. Today, patient report improvement of bilateral lower limb edema and dyspnea. Vital signs were reviewed. EKG: Sinus tachycardia with occasional PVCs, ECHO was done, showed markedly decreased of EF at 10%. Cardiac consult was performed, Dr. Mary added IV diuretic Lasix 80 mg BID, metolazone 10 mg, Jardiance 10 mg daily, and spironolactone 25 mg daily. Gradually start on GDMT and adjust according to the patient's hemodynamic status. Once volume overload resolved, Cardiology will plan for left heart catheterization. We will re-asses right sided pleural effusion tomorrow AM, if is still significant will performed right sided consider pleurocentesis. Follow up closely this patient. ROS Constitutional: Denies weight loss, fever and chills. HEENT: Denies changes in vision and hearing. Respiratory: reports shortness of breath Cardiovascular: Denies chest discomfort or palpitations GI: Mild abdomen distended, abdominal pain, no mases. : Denies dysuria and urinary frequency. Musculoskeletal: Denies myalgias and joint pain. Skin: Denies rash and pruritus. Neurological: Denies dizziness, headache, vision or hearing problems Exam Gen: 39-year-old male in mild distress. Skin: Warm, dry, normal color and texture, no rash. HEENT: Normocephalic atraumatic, mucous membranes moist and pink. Neck: Cervical and supraclavicular nodes normal without enlargement, trachea is midline, thyroid gland is normal without masses. Pulmonary: minimal crackles on lung bases. Cardiac: Regular rate and rhythm. No murmur Abdomen: Soft, mild distended, tenderness on right and left abdominal upper quadrant. Extremities: No cyanosis or clubbing. Patient presents bilateral pedal edema, no fovea. Neuro: Cranial nerves II through XII grossly intact, normal affect and speech, no focal motor deficits. Objective vital signs Vital Sign Date Time Temp Pulse Resp B/P (MAP) Pulse Ox O2 Delivery O2 Flow Rate FiO2 02/01/25 12:30 97.6 40 14 96/66 (76) 97 97.6 02/01/25 08:00 Room Air* 0 21 Total Intake and Output 01/31/25 01/31/25 02/01/25 15:00 23:00 07:00 Intake Total 250 ml 1000 ml Output Total 500 ml 2100 ml Balance -250 ml -1100 ml medications Current Medications Medications Dose Ordered Sig/Shanika Route Start Time Stop Time Status Last Admin Dose Admin Diagnostic Test (Pha) 1 strip ACHS 01/31/25 07:00 02/01/25 11:30 1 STRIP Insulin Human Regular ACHS SC 01/31/25 07:00 02/01/25 11:31 3 UNITS Dextrose 50 ml UD PRN IV 01/31/25 04:15 Ondansetron HCl 4 mg Q4HP PRN IV 01/31/25 04:15 Acetaminophen 650 mg Q6HP PRN PO 01/31/25 04:15 Nitroglycerin 0.4 mg Q5MINP PRN SL 01/31/25 04:15 Morphine Sulfate 2 mg Q30M PRN IV 01/31/25 04:15 Albuterol 2.5 mg Q6HPRN PRN NEB 01/31/25 04:30 Empaglifozin 10 mg DAILY PO 02/01/25 10:00 02/01/25 09:44 10 MG Spironolactone 25 mg DAILY PO 02/01/25 10:00 02/01/25 09:44 25 MG Furosemide 80 mg BIDD IV 02/01/25 06:00 Metolazone 10 mg DAILY PO 02/01/25 10:00 02/01/25 09:44 10 MG laboratory and microbiology Laboratory Tests 02/01/25 05:09 Test 02/01/25 05:09 Range/Units Serum Glucose 99 # 74-106 mg/dL Problem List/Assessment/Plan Problem List/Assessment/Plan Assessment/Plan Acute hypoxic respiratory failure/ Acute on chronic congestive systolic heart failure -Lasix 40 mg IV BID -Spironolactone 25mg PO -Empagliflozin 10 mg PO -EKG: Sinus tachycardia with occasional PVCs. -ECHO performed, EF 10% -Cardiology Consult: start IV diuretic Lasix 80 mg BID, metolazone 10 mg daily, Jardiance 10 mg daily, and spironolactone 25 mg daily; Gradually start on GDMT, and we will adjust according to the patient's hemodynamic status. Once volume overload resolved, Cardiology will plan for left heart catheterization. Bilateral Pleural effusion, more prominent on the rigth side. CT perfomed: showed billateral pleural effusion, also small pericardial effusion. We will reassess right sided pleural effusion to determinate the need for right pleurocentesis -Furosemide 80mg IV BID Diabetes mellitus type II with Hyperglycemia -Mild dose insulin sliding scale. Acute kidney injury, likely due to VMN in the setting of CHF exacerbation -BUN 22 -Crea; 1.36 -Monitor daily kidney function. Hypothyroidism, ruled out TSH 4.18 within normal limits. Sick sinus syndrome/ Tachy-Bradycardia. -Bradycardia on admission with occasional tachycardia episodes. RO Nephrotic Syndrome, ruled out. -UA/Urine protein negative. Goals of care discusses with the patient. Continue treatment per orders. Goals of care discussed with the patient and critical care nurse at bedside for >35min, FULL CODE Plan discussed with Dr. Muir. Plan discussed with: Patient My Orders My Orders Orders - MARCELO SALAS Procedure Category Date Status Time Complete Blood Count LAB 02/02/25 Verified 04:00 Comprehensive LAB 02/02/25 Verified Metabolic Panel 04:00 MARCELO SALAS RESIDENT Feb 01, 2025 15:34
[2025-02-01] MEDS: PANTOPRAZOLE 40 MG TAB PO ONE (16:42)
[2025-02-01] MEDS: SACUBITRIL-VALSARTAN 24mg/26mg TAB PO SCH (21:25)
[2025-02-01] MEDS: METOPROLOL SUCCINATE XL 50 MG TAB PO ONE (21:26)
--- NOTE | 2025-02-01 22:52 | DVHPN2 ---
Progress Note - Dictate Date Seen: Feb 01, 2025 Has the PT tested + for MRSA If YES, has PT been informed?: No Medical Necessity Reason Pt with a Central, PICC or Fol: No Subjective Patient was seen and evaluated in follow up. Patient reported feeling better. Pedal edema is improving. BS in the 190s. Echo shows generalized hypokinesia with EF 10%, severe MR severe TR. Telemetry reviewed. vital signs Vital Sign Date Time Temp Pulse Resp B/P (MAP) Pulse Ox O2 Delivery O2 Flow Rate FiO2 02/01/25 12:30 97.6 40 14 96/66 (76) 97 97.6 02/01/25 08:00 Room Air* 0 21 Total Intake and Output 01/31/25 01/31/25 02/01/25 15:00 23:00 07:00 Intake Total 250 ml 1000 ml Output Total 500 ml 2100 ml Balance -250 ml -1100 ml medications Current Medications Medications Dose Ordered Sig/Shanika Route Start Time Stop Time Status Last Admin Dose Admin Diagnostic Test (Pha) 1 strip ACHS 01/31/25 07:00 02/01/25 11:30 1 STRIP Insulin Human Regular ACHS SC 01/31/25 07:00 02/01/25 11:31 3 UNITS Dextrose 50 ml UD PRN IV 01/31/25 04:15 Ondansetron HCl 4 mg Q4HP PRN IV 01/31/25 04:15 Acetaminophen 650 mg Q6HP PRN PO 01/31/25 04:15 Nitroglycerin 0.4 mg Q5MINP PRN SL 01/31/25 04:15 Morphine Sulfate 2 mg Q30M PRN IV 01/31/25 04:15 Albuterol 2.5 mg Q6HPRN PRN NEB 01/31/25 04:30 Empaglifozin 10 mg DAILY PO 02/01/25 10:00 02/01/25 09:44 10 MG Spironolactone 25 mg DAILY PO 02/01/25 10:00 02/01/25 09:44 25 MG Furosemide 80 mg BIDD IV 02/01/25 06:00 Metolazone 10 mg DAILY PO 02/01/25 10:00 02/01/25 09:44 10 MG objective GENERAL: Alert and oriented x 3. No acute distress. Obese EYES: PERRL, EOMI. Anicteric. HENT: Moist mucous membranes. LUNGS: Bilateral mid zone crackles, and bilaterally decreased breath sounds. CARDIOVASCULAR: Regular rate and rhythm. ABDOMEN: Distended, soft, non-tender. EXTREMITIES: 3+ BLE edema. NEUROLOGIC: No focal neurological deficits. SKIN: Warm, dry. laboratory and microbiology Laboratory Tests 02/01/25 05:09 Test 02/01/25 05:09 Range/Units Serum Glucose 99 # 74-106 mg/dL Problem List Acute on chronic systolic heart failure. Volume overload, likely due to systolic heart failure. Pleural effusion, likely due to systolic heart failure. ? Sick sinus syndrome, tachycardia bradycardia. Uncontrolled diabetes type 2 with hyperglycemia. HECTOR, likely VMN. Obesity. Chronic liver disease, unknown etiology. Ascites, likely due to chronic liver disease. Assessment/Plan Continued all current supportive medical care. Patient has been seen by Michell Garnett, resident on my behalf. We have discussed the plan with the patient. IV diuretic Lasix 80 mg BID and metolazone 10 mg daily in hospital. We gradually start on GDMT, and we will adjust according to the patient's hemodynamic status. DC plan from cardiology standpoint: Jardiance 10mg daily, spironolcatone 25mg, metoprolol 50mg daily, Entresto BID, lasix 20 mg daily. Rest of plan per primary team Additional plan as per the hospital course. Plan discussed with: Patient LANA JOSE MD Feb 01, 2025 15:49
[2025-02-02] VITALS (9 sets, daily range): BP systolic 86–100; BP diastolic 55–77; PULSE 69–116; RESP 16–20; TEMP 97.7–98.4; O2SAT 95–100
[2025-02-02 05:39] LABS: Hematocrit 42.1 % (41.0-53.0); Hemoglobin 14.4 g/dL (13.5-17.5); Mean Corpuscular Hemoglobin 29.1 pg (28.0-32.0); Mean Corpuscular Volume 85.3 fL (80.0-100.0); Nucleated Red Blood Cells % 0.0 %
[2025-02-02 06:01] LABS: Alanine Aminotransferase 20 U/L (7-40); Albumin 4.0 g/dL (3.2-4.8); Alkaline Phosphatase 52 U/L (46-116); Anion Gap 12 (5-15); BUN/Creatinine Ratio 16.7 (10.0-20.0); Blood Urea Nitrogen 22 mg/dL (9-23); Calcium 10.1 mg/dL (8.7-10.4); Carbon Dioxide 28 mmol/L (20-31); Chloride 101 mmol/L (98-107); Potassium 4.1 mmol/L (3.5-5.1); Sodium 141 mmol/L (136-145); Total Protein 6.1 g/dL (5.7-8.2)
[2025-02-02 06:07] LABS: Bilirubin, Total 1.5 mg/dL (0.2-1.0); Glucose 144 mg/dL (74-106)
[2025-02-02] MEDS: METOPROLOL SUCCINATE XL 50 MG TAB PO SCH (09:09)
--- NOTE | 2025-02-02 13:40 | DVHPN2 ---
Progress Note - Dictate Date Seen: Feb 02, 2025 Has the PT tested + for MRSA If YES, has PT been informed?: No Medical Necessity Reason Pt with a Central, PICC or Fol: No Subjective Patient was seen and evaluated in follow up. Patient complains of generalized pain. GIN CLERK 1.32. Patietn being considered for pleurocentesis due to right sided pleural effusion. Telemetry reviewed. vital signs Vital Sign Date Time Temp Pulse Resp B/P (MAP) Pulse Ox O2 Delivery O2 Flow Rate FiO2 02/02/25 12:43 97.7 101 20 94/55 (68) 95 97.7 02/02/25 08:05 Room Air* 0 21 Total Intake and Output 02/01/25 02/01/25 02/02/25 15:00 23:00 07:00 Intake Total 600 ml Output Total 1500 ml Balance -1500 ml 600 ml medications Current Medications Medications Dose Ordered Sig/Shanika Route Start Time Stop Time Status Last Admin Dose Admin Diagnostic Test (Pha) 1 strip ACHS 01/31/25 07:00 02/02/25 11:39 1 STRIP Insulin Human Regular ACHS SC 01/31/25 07:00 02/02/25 11:41 2 UNITS Dextrose 50 ml UD PRN IV 01/31/25 04:15 Ondansetron HCl 4 mg Q4HP PRN IV 01/31/25 04:15 Acetaminophen 650 mg Q6HP PRN PO 01/31/25 04:15 Nitroglycerin 0.4 mg Q5MINP PRN SL 01/31/25 04:15 Morphine Sulfate 2 mg Q30M PRN IV 01/31/25 04:15 Albuterol 2.5 mg Q6HPRN PRN NEB 01/31/25 04:30 Empaglifozin 10 mg DAILY PO 02/01/25 10:00 02/02/25 09:02 10 MG Spironolactone 25 mg DAILY PO 02/01/25 10:00 02/02/25 09:07 25 MG Furosemide 80 mg BIDD IV 02/01/25 06:00 Metolazone 10 mg DAILY PO 02/01/25 10:00 02/02/25 09:08 10 MG Metoprolol Succinate 25 mg DAILY PO 02/02/25 10:00 Sacubitril/ Valsartan 1 tab BID PO 02/01/25 22:00 02/01/25 21:25 1 TAB objective GENERAL: Alert and oriented x 3. No acute distress. Obese EYES: PERRL, EOMI. Anicteric. HENT: Moist mucous membranes. LUNGS: Bilateral mid zone crackles, and bilaterally decreased breath sounds. CARDIOVASCULAR: Regular rate and rhythm. ABDOMEN: Distended, soft, non-tender. EXTREMITIES: 3+ BLE edema. NEUROLOGIC: No focal neurological deficits. SKIN: Warm, dry. laboratory and microbiology Laboratory Tests 02/02/25 04:36 Test 02/02/25 04:36 Range/Units Serum Glucose 144 H 74-106 mg/dL Problem List Acute on chronic systolic heart failure. Volume overload, likely due to systolic heart failure. Pleural effusion, likely due to systolic heart failure. ? Sick sinus syndrome, tachycardia bradycardia. Uncontrolled diabetes type 2 with hyperglycemia. HECTOR, likely VMN. Obesity. Chronic liver disease, unknown etiology. Ascites, likely due to chronic liver disease. Assessment/Plan Continued all current supportive medical care. Diuretics with Lasix. Metoprolol. Morphine for pain management. Entresto. Additional plan as per the hospital course. Plan discussed with: Patient LANA JOSE MD Feb 02, 2025 13:35
--- NOTE | 2025-02-02 17:39 | DVHPNRES ---
Progress Note Date Seen: Feb 02, 2025 Resident Creating Document: MARCELO SALAS RESIDENT Has the PT tested + for MRSA If YES, has PT been informed?: No Medical Necessity Reason Pt with a Central, PICC or Fol: No Subjective Review of Systems This is a 39-year-old male with a history of diabetes mellitus, chronic congestive heart failure 2024, presented to the ER for evaluation of shortness for breath. Patient reports a two day history of worsening shortness for breath associated with chest pain and 1 week of bilateral lower limb edema and abdominal distention, and orthopnea. Denies cough or fever. No other acute complaints reported. On the ER vital signes showed HR 50/min BP 99/59 mm hg, Sat O2 97% , X-ray showed pleural effusion and cardiomegaly, CT Scan showed: Large bilateral pleural effusions, [id number], with adjacent atelectasis and lobar collapse, Cardiomegaly and trace pericardial effusion, Moderate abdominopelvic ascites. The patient was seen and examined at bedside. 02/02/25. Today, patient report improvement of bilateral lower limb edema and dyspnea. Vital signs were reviewed. EKG: Sinus tachycardia with occasional PVCs, ECHO was done, showed markedly decreased of EF at 10%. Cardiac consult was performed, Dr. Mary added IV diuretic Lasix 80 mg BID, metolazone 10 mg, Jardiance 10 mg daily, and spironolactone 25 mg daily. Gradually start on GDMT and adjust according to the patient's hemodynamic status. Once volume overload resolved cardiology will re-evaluated the patient outpatient for follow up. We will re-asses right sided pleural effusion tomorrow AM, if is still significant will performed right sided consider pleurocentesis. Follow up closely this patient. ROS Constitutional: Denies weight loss, fever and chills. HEENT: Denies changes in vision and hearing. Respiratory: reports shortness of breath Cardiovascular: Denies chest discomfort or palpitations GI: Mild abdomen distended, abdominal pain, no mases. : Denies dysuria and urinary frequency. Musculoskeletal: Denies myalgias and joint pain. Skin: Denies rash and pruritus. Neurological: Denies dizziness, headache, vision or hearing problems Exam Gen: Patient alert and oriented in person place and time, Patient follow commands. Skin: Warm, dry, normal color and texture, no rash. HEENT: Normocephalic atraumatic, mucous membranes moist and pink. Neck: Cervical and supraclavicular nodes normal without enlargement, trachea is midline, thyroid gland is normal without masses. Pulmonary: minimal crackles on lung bases. Cardiac: Regular rate and rhythm. No murmur Abdomen: Soft, no tenderness, no masses Extremities: No cyanosis or clubbing. Billateral lower leg edema. Neuro: Cranial nerves II through XII grossly intact, normal affect and speech, no focal motor deficits. Objective vital signs Vital Sign Date Time Temp Pulse Resp B/P (MAP) Pulse Ox O2 Delivery O2 Flow Rate FiO2 02/02/25 16:47 98.4 101 20 86/66 (73) 97 98.4 02/02/25 08:05 Room Air* 0 21 Total Intake and Output 02/01/25 02/01/25 02/02/25 15:00 23:00 07:00 Intake Total 600 ml Output Total 1500 ml Balance -1500 ml 600 ml medications Current Medications Medications Dose Ordered Sig/Shanika Route Start Time Stop Time Status Last Admin Dose Admin Diagnostic Test (Pha) 1 strip ACHS 01/31/25 07:00 02/02/25 11:39 1 STRIP Insulin Human Regular ACHS SC 01/31/25 07:00 02/02/25 11:41 2 UNITS Dextrose 50 ml UD PRN IV 01/31/25 04:15 Ondansetron HCl 4 mg Q4HP PRN IV 01/31/25 04:15 Acetaminophen 650 mg Q6HP PRN PO 01/31/25 04:15 Nitroglycerin 0.4 mg Q5MINP PRN SL 01/31/25 04:15 Morphine Sulfate 2 mg Q30M PRN IV 01/31/25 04:15 Albuterol 2.5 mg Q6HPRN PRN NEB 01/31/25 04:30 Empaglifozin 10 mg DAILY PO 02/01/25 10:00 02/02/25 09:02 10 MG Spironolactone 25 mg DAILY PO 02/01/25 10:00 02/02/25 09:07 25 MG Furosemide 80 mg BIDD IV 02/01/25 06:00 Metolazone 10 mg DAILY PO 02/01/25 10:00 02/02/25 09:08 10 MG Metoprolol Succinate 25 mg DAILY PO 02/02/25 10:00 Sacubitril/ Valsartan 1 tab BID PO 02/01/25 22:00 02/01/25 21:25 1 TAB laboratory and microbiology Laboratory Tests 02/02/25 04:36 Test 02/02/25 04:36 Range/Units Serum Glucose 144 H 74-106 mg/dL Problem List/Assessment/Plan Problem List/Assessment/Plan Assessment/Plan Acute hypoxic respiratory failure/ Acute on chronic congestive systolic heart failure -Lasix 40 mg IV BID -Spironolactone 25mg PO -Empagliflozin 10 mg PO -EKG: Sinus tachycardia with occasional PVCs. -ECHO performed, EF 10% -Cardiology Consult: start IV diuretic Lasix 80 mg BID, metolazone 10 mg daily, Jardiance 10 mg daily, and spironolactone 25 mg daily; Gradually start on GDMT, and we will adjust according to the patient's hemodynamic status. Once volume overload resolved cardiology will continue follow up outpatient. Bilateral Pleural effusion, more prominent on the rigth side. CT perfomed: showed billateral pleural effusion, also small pericardial effusion. We will reassess right sided pleural effusion to determinate the need for right pleurocentesis -Furosemide 80mg IV BID Diabetes mellitus type II with Hyperglycemia -Mild dose insulin sliding scale. Acute kidney injury, likely due to VMN in the setting of CHF exacerbation -BUN 22 -Crea; 1.39 -Monitor daily kidney function. Hypothyroidism, ruled out TSH 4.18 within normal limits. Sick sinus syndrome/ Tachy-Bradycardia. -Bradycardia on admission with occasional tachycardia episodes. RO Nephrotic Syndrome, ruled out. -UA/Urine protein negative. Goals of care discusses with the patient. Continue treatment per orders. Goals of care discussed with the patient and career placement services counselor at bedside for >35min, FULL CODE Plan discussed with Dr. Muir. Plan discussed with: Patient My Orders My Orders Orders - MARCELO SALAS RESIDENT Procedure Category Date Status Time Electrocardigram EKG 02/01/25 Logged 20:07 Comprehensive LAB 02/02/25 In Process Hepatitis Panel 12:49 Complete Blood Count LAB 02/03/25 Verified 04:00 Basic Metabolic Panel LAB 02/03/25 Verified 04:00 MARCELO SALAS RESIDENT Feb 02, 2025 17:39
[2025-02-03] VITALS (8 sets, daily range): BP systolic 95–105; BP diastolic 66–76; PULSE 90–113; RESP 16–18; TEMP 97.5–98.4; O2SAT 96–100
[2025-02-03 05:59] LABS: Hematocrit 46.8 % (41.0-53.0); Hemoglobin 15.9 g/dL (13.5-17.5); Mean Corpuscular Hemoglobin 28.9 pg (28.0-32.0); Mean Corpuscular Volume 85.3 fL (80.0-100.0); Nucleated Red Blood Cells % 0.1 %
[2025-02-03 06:07] LABS: Chloride 102 mmol/L (98-107); Potassium 4.4 mmol/L (3.5-5.1); Sodium 141 mmol/L (136-145)
[2025-02-03 06:08] LABS: Anion Gap 10 (5-15); Carbon Dioxide 29 mmol/L (20-31)
[2025-02-03 06:13] LABS: BUN/Creatinine Ratio 17.1 (10.0-20.0); Blood Urea Nitrogen 21 mg/dL (9-23); Glucose 97 mg/dL (74-106)
[2025-02-03 06:26] LABS: Calcium 10.8 mg/dL (8.7-10.4)
[2025-02-03 11:48] LABS: Hepatitis A Total Antibody Positive (Negative)
[2025-02-03 11:49] LABS: Hepatitis B Surface Antigen Negative (Negative); Hepatitis C Antibody Negative (Negative)
--- NOTE | 2025-02-03 15:46 | DVHDSRES ---
Discharge Summary Date of Admission Resident Creating Document: MARCELO SALAS RESIDENT Jan 31, 2025 at 04:13 Date of Discharge: Feb 03, 2025 Labs/Diagnostic Data: Laboratory Results Test 02/03/25 11:59 02/03/25 04:43 02/02/25 04:36 01/31/25 17:10 POC Glucose 165 mg/dl (70-106) White Blood Count 6.5 10^3/uL (4.4-10.8) Red Blood Count 5.49 10^6/uL (4.5-5.90) Hemoglobin 15.9 g/dL (13.5-17.5) Hematocrit 46.8 % (41.0-53.0) Mean Corpuscular Volume 85.3 fL (80.0-100.0) Mean Corpuscular Hemoglobin 28.9 pg (28.0-32.0) Mean Corpuscular Hemoglobin Concent 33.9 g/dL (32.0-36.0) Red Cell Distribution Width 14.9 % (11.8-14.3) Platelet Count 196 10^3/uL (140-450) Mean Platelet Volume 10.2 fL (6.9-10.8) Neutrophils (%) (Auto) 62.0 % (37.0-80.0) Lymphocytes (%) (Auto) 25.8 % (10.0-50.0) Monocytes (%) (Auto) 8.5 % (0.0-12.0) Eosinophils (%) (Auto) 3.4 % (0.0-7.0) Basophils (%) (Auto) 0.3 % (0.0-2.0) Neutrophils # (Auto) 4.0 10 ^3/uL (1.6-8.6) Lymphocytes # (Auto) 1.7 10 ^3/uL (0.4-5.4) Monocytes # (Auto) 0.6 10 ^3/uL (0-1.3) Eosinophils # (Auto) 0.2 10 ^3/uL (0-0.8) Basophils # (Auto) 0 10 ^3/uL (0-0.2) Nucleated Red Blood Cells 0.1 % Sodium Level 141 mmol/L (136-145) Potassium Level 4.4 mmol/L (3.5-5.1) Chloride Level 102 mmol/L (98-107) Carbon Dioxide Level 29 mmol/L (20-31) Anion Gap 10 (5-15) Blood Urea Nitrogen 21 mg/dL (9-23) Creatinine 1.23 mg/dL (0.700-1.30) Glomerular Filtration Rate Calc 76 mL/min (>90) BUN/Creatinine Ratio 17.1 (10.0-20.0) Serum Glucose 97 mg/dL (74-106) Calcium Level 10.8 mg/dL (8.7-10.4) Total Bilirubin 1.5 mg/dL (0.2-1.0) Aspartate Amino Transferase (AST) 21 U/L (13-40) Alanine Aminotransferase (ALT) 20 U/L (7-40) Alkaline Phosphatase 52 U/L (46-116) Total Protein 6.1 g/dL (5.7-8.2) Albumin 4.0 g/dL (3.2-4.8) Hepatitis A Antibody Total Positive (Negative) Hepatitis B Surface Antigen Negative (Negative) Hepatitis B Surface Antibody Negative (Negative) Hepatitis B Core Total Antibody Negative (Negative) Hepatitis C Antibody Negative (Negative) Urine Color Light-yellow (Yellow) Urine Clarity Clear (Clear) Urine pH 5.0 (5.0-9.0) Urine Specific Left Hand 1.009 (1.001-1.035) Urine Protein Negative (Negative) Urine Ketones Negative (Negative) Urine Blood Negative /uL (Negative) Urine Nitrite Negative (Negative) Urine Bilirubin Negative (Negative) Urine Urobilinogen Normal mg/dL (Negative) Urine Leukocyte Esterase Negative /uL (Negative) Urine RBC <1 /hpf (0 - 3) Urine Microscopic WBC < 1 /HPF (0-3) Urine Squamous Epithelial Cells None seen /hpf (<5) Urine Bacteria None seen /hpf (None Seen) Urine Creatinine 72.45 mg/dL (30.0-125.0) Urine Sodium 48 mmol/L (40-220) Urine Glucose Normal mg/dL (Normal) Urine Total Protein 6.8 mg/dL (1-14) Urine Opiates Screen Neg (NEGATIVE) Urine Fentanyl Screen Neg (NEGATIVE) Urine Barbiturates Screen Neg (NEGATIVE) Urine Phencyclidine Screen Neg (NEGATIVE) Urine Amphetamines Screen Neg (NEGATIVE) Urine Benzodiazepines Screen Neg (NEGATIVE) Urine Cocaine Screen Neg (NEGATIVE) Urine Cannabinoids Screen Neg (NEGATIVE) Test 01/31/25 09:25 01/31/25 03:29 01/31/25 01:24 01/31/25 00:43 Plasma/Serum Blood Alcohol < 3.0 mg/dL (<10) Troponin I High Sensitivity 25 ng/L (</=54) Thyroid Stimulating Hormone (TSH) 4.18 uIU/mL (0.55-4.78) Magnesium Level 1.8 mg/dL (1.6-2.6) Direct Bilirubin 0.4 mg/dL (<0.3) Triglycerides Level 146 mg/dL (< 150) Cholesterol Level 150 mg/dL (< 200) LDL Cholesterol 107 mg/dL (< 100) HDL Cholesterol 34 mg/dL (40-59) Hemoglobin A1c 9.9 % A1C (<5.7) B-Type Natriuretic Peptide 991.85 pg/mL (0-100) Other Laboratory Tests 02/03/25 04:43 Brief Hx & Hospital Course: This is a 39-year-old male with a history of diabetes mellitus, chronic congestive heart failure 2024, presented to the ER for evaluation of shortness for breath. Patient reports a two day history of worsening shortness for breath associated with chest pain and 1 week of bilateral lower limb edema and abdominal distention, and orthopnea. Denies cough or fever. No other acute complaints reported. On the ER vital signes showed HR 50/min BP 99/59 mm hg, Sat O2 97% , X-ray showed pleural effusion and cardiomegaly, CT Scan showed: Large bilateral pleural effusions, [id number], with adjacent atelectasis and lobar collapse, Cardiomegaly and trace pericardial effusion, Moderate abdominopelvic ascites. The patient was seen and examined at bedside. 02/03/25. Today, patient report significant improvement, the dyspnea, chest disconfort, ascitis and the bilateral lower limb edema have resolved. Vital signs were reviewed. The patient will be discharge today, DC plan from cardiology standpoint: cardiac diet, Jardiance 10mg daily, spironolcatone 25mg, metoprolol 50mg daily, Entresto BID, lasix 20 mg daily. Follow up with PCP in 1 week, The patient will continue follow up with cardiology in 1 week as out patient. Patient was provided with information to [facility] insurance plan. ROS Constitutional: Denies weight loss, fever and chills. HEENT: Denies changes in vision and hearing. Respiratory: denies shortness of breath or cough. Cardiovascular: Denies chest pain, discomfort or palpitations GI: no abdominal pain. : Denies dysuria and urinary frequency. Musculoskeletal: Denies myalgias and joint pain. Skin: Denies rash and pruritus. Neurological: Denies dizziness, headache, vision or hearing problems Exam Gen: Patient alert and oriented in person place and time, Patient follow commands. Skin: Warm, dry, normal color and texture, no rash. HEENT: Normocephalic atraumatic, mucous membranes moist and pink. Neck: Cervical and supraclavicular nodes normal without enlargement, trachea is midline, thyroid gland is normal without masses. Pulmonary: minimal crackles on lung bases. Cardiac: Regular rate and rhythm. No murmur Abdomen: Soft, no tenderness, no masses Extremities: No cyanosis or clubbing. Billateral lower leg edema. Neuro: Cranial nerves II through XII grossly intact, normal affect and speech, no focal motor deficits. Assessment -Acute hypoxic respiratory failure/ Acute on chronic congestive systolic heart failure -Bilateral Pleural effusion. -Diabetes mellitus type II with Hyperglycemia -Acute kidney injury, likely due to VMN in the setting of CHF exacerbation -Hypothyroidism, ruled out -Sick sinus syndrome/ Tachy-Bradycardia. -RO Nephrotic Syndrome, ruled out. Plan -DC plan from cardiology standpoint: -Cardiac diet, Jardiance 10mg daily, -Spironolcatone 25mg, -Metoprolol 50mg daily, -Entresto BID, lasix 20 mg daily. -student services director information was provided to the patient to [facility]. -The patient will continue follow up with cardiology in 1 week as out patient. -Follow up with PCP in 1-2 weeks Patient agree with the discharge plan. Plan discussed with Dr. Muir. Condition at Discharge: Stable Final Diagnosis/Problems List Acute hypoxic respiratory failure/ Acute on chronic congestive systolic heart failure Bilateral pleura effusion. Acute kidney injury, likely due to VMN in the setting of CHF exacerbation Sick sinus syndrome/ Tachy-Bradycardia. DM type 2 with hyperglycemia Discharge Disposition: Home SNF Discharge Will this Physician continue t: No Discharge Instruct/Medications Diet: Cardiac 2g Na,low cholest Activity: No Restrictions, As Tolerated Scheduled Empagliflozin (Jardiance), 10 MG PO DAILY Metoprolol Succinate (Metoprolol Succinate Er), 1 TAB PO DAILY Sacubitril-Valsartan (Entresto 24-26 mg), 1 TAB PO BID Spironolactone (Spironolactone), 1 TAB PO DAILY Scheduled PRN Furosemide (Furosemide), 1 TAB PO DAILY PRN Discharge Statement: "Patient was advised to return to the ER or call 911 if any headaches, dizziness, shortness of breath, chest pain, abdominal pain, bleeding, fevers, or worsening of medical condition. Patient was counseled about treatment plan, medications, possible side effects, patientverbalized understanding. All questions were answered to the best of my ability. This discharge took greater then 30 minutes in planning, reviewing documentation, counseling the patient, and discussing with other team members." ASSESSMENT ASSESSMENT Assessment MARCELO SALAS RESIDENT Feb 03, 2025 15:46
[2025-02-03] MEDS ORDERED: SPIR25TA8 PO (16:09)
[2025-02-03] MEDS ORDERED: SACU1TAB PO (16:09)
[2025-02-03] MEDS ORDERED: EMPA1TAB PO (16:09)
[2025-02-03] MEDS ORDERED: METO25TA93 PO (16:09)
[2025-02-03] MEDS ORDERED: FURO20TA3 PO (16:10)
--- NOTE | 2025-02-03 20:24 | DVHPN2 ---
Progress Note - Dictate Date Seen: Feb 03, 2025 Has the PT tested + for MRSA If YES, has PT been informed?: No Medical Necessity Reason Pt with a Central, PICC or Fol: No Subjective Patient was seen and evaluated in follow up. Patient complains of generalized pain. CA 10.8. Hepatitis A Ab total is positive. Telemetry reviewed. vital signs Vital Sign Date Time Temp Pulse Resp B/P (MAP) Pulse Ox O2 Delivery O2 Flow Rate FiO2 02/03/25 09:14 97/72 02/03/25 09:00 98.4 109 16 97 98.4 02/03/25 08:00 Room Air* 0 21 Total Intake and Output 02/02/25 02/02/25 02/03/25 14:59 22:59 06:59 Intake Total 988 ml 500 ml Output Total 650 ml 1000 ml Balance 338 ml -500 ml medications Current Medications Medications Dose Ordered Sig/Shanika Route Start Time Stop Time Status Last Admin Dose Admin Diagnostic Test (Pha) 1 strip ACHS 01/31/25 07:00 02/03/25 11:30 1 STRIP Insulin Human Regular ACHS SC 01/31/25 07:00 02/02/25 21:20 4 UNITS Dextrose 50 ml UD PRN IV 01/31/25 04:15 Ondansetron HCl 4 mg Q4HP PRN IV 01/31/25 04:15 Acetaminophen 650 mg Q6HP PRN PO 01/31/25 04:15 Nitroglycerin 0.4 mg Q5MINP PRN SL 01/31/25 04:15 Morphine Sulfate 2 mg Q30M PRN IV 01/31/25 04:15 Albuterol 2.5 mg Q6HPRN PRN NEB 01/31/25 04:30 Empaglifozin 10 mg DAILY PO 02/01/25 10:00 02/03/25 09:13 10 MG Spironolactone 25 mg DAILY PO 02/01/25 10:00 02/03/25 09:13 25 MG Furosemide 80 mg BIDD IV 02/01/25 06:00 Metolazone 10 mg DAILY PO 02/01/25 10:00 02/03/25 09:12 10 MG Metoprolol Succinate 25 mg DAILY PO 02/02/25 10:00 Sacubitril/ Valsartan 1 tab BID PO 02/01/25 22:00 02/03/25 09:13 1 TAB objective GENERAL: Alert and oriented x 3. No acute distress. Obese EYES: PERRL, EOMI. Anicteric. HENT: Moist mucous membranes. LUNGS: Bilateral mid zone crackles, and bilaterally decreased breath sounds. CARDIOVASCULAR: Regular rate and rhythm. ABDOMEN: Distended, soft, non-tender. EXTREMITIES: 3+ BLE edema. NEUROLOGIC: No focal neurological deficits. SKIN: Warm, dry. laboratory and microbiology Laboratory Tests 02/03/25 04:43 Test 02/03/25 04:43 Range/Units Serum Glucose 97 74-106 mg/dL Problem List Acute on chronic systolic heart failure. Volume overload, likely due to systolic heart failure. Pleural effusion, likely due to systolic heart failure. ? Sick sinus syndrome, tachycardia bradycardia. Uncontrolled diabetes type 2 with hyperglycemia. HECTOR, likely VMN. Obesity. Chronic liver disease, unknown etiology. Ascites, likely due to chronic liver disease. Assessment/Plan Continued all current supportive medical care. Diuretics with Lasix. Metoprolol. Morphine for pain management. Entresto. Aldactone. Additional plan as per the hospital course. Dietary Evaluation Review Recommendations by RD: Dietary education by RD Comments: 1) Continue 60g CCHO cardiac diet 2) Encourage optimal PO intake 3) Refer to outpatient RD/CDCES for diabetes education 4) Follow-up with cardiology and pulmonology 5) Continue to monitor I&O, labs, and skin integrity Expected Outcomes/Goals: 1) appetite and labs to improve 2) f/u in 3-5 days Plan discussed with: Patient LANA JOSE MD Feb 03, 2025 12:23
[2025-02-04] MEDS ORDERED: SPIR25TA8 PO (11:49)
[2025-02-04] MEDS ORDERED: EMPA1TAB PO (11:49)
[2025-02-04] MEDS ORDERED: FURO20TA3 PO (11:49)
[2025-02-04] MEDS ORDERED: METO25TA93 PO (11:49)
== END 2025-02-03 18:50 | disposition home or self-care (01) | DRG 291 ==
LOC: ER 23:54 → OVERFLOW 01-31 04:13 → TELE-WESTW 01-31 15:32
PROVIDERS: ADMIT Student in an Organized Health Care Education/Training Program; ATTEND Emergency Medicine
DX: I50.23 Acute on chronic systolic (congestive) heart failure (principal); J96.01 Acute respiratory failure with hypoxia; N17.0 Acute kidney failure with tubular necrosis; I31.39 Other pericardial effusion (noninflammatory); R18.8 Other ascites; I49.5 Sick sinus syndrome; E66.9 Obesity, unspecified; I07.1 Rheumatic tricuspid insufficiency; Z68.30 Body mass index [BMI] 30.0-30.9, adult; K76.9 Liver disease, unspecified; E11.65 Type 2 diabetes mellitus with hyperglycemia; I49.3 Ventricular premature depolarization; R80.9 Proteinuria, unspecified; Z79.899 Other long term (current) drug therapy; Z79.4 Long term (current) use of insulin; Z79.84 Long term (current) use of oral hypoglycemic drugs
CPT/HCPCS: 36415; 71045; 74176; 76705; 80048; 80053; 80061; 80076; 80307; 80320; 81001; 82570; 82962; 83036; 83735; 83880; 84156; 84300; 84443; 84484; 85025; 86704; 86706; 86708; 86803; 87340; 93005; 93306; G0378; J1815

== ENCOUNTER 2025-02-16 21:40 | Inpatient (IN) | payer OTHER ==
[~2025-02-16] VITALS: Ht 170.2 cm; Wt 78.8 kg
[~2025-02-16 21:40] MED LIST: EMPA1TAB PO; FURO20TA3 PO; METO25TA93 PO; SPIR25TA8 PO
--- NOTE | 2025-02-16 22:06 | ED.PDOC ---
HPI Comments 39 year old Kyrgyz speaking male with a Hx of DM I and CHF presents to the ED for the c/c of SOB with associated Diffuse lower chest/upper abd pain radiating to the Left chest, and Bilateral Leg Edema. Pt states that his symptoms have been onset for the past 3x days with no alleviating factors, but a worsening factors of laying down. Pt notes that he has not been able to lie flat to sleep due to the sob and chest pain. No other associated symptoms, modifiers, recent injuries or sick contacts present at this time. Chief Complaint: Shortness of Breath Time Seen by MD: 22:00 Reviewed Notes: Nurses Notes, Medications, Allergies Allergies: Coded Allergies: NO KNOWN ALLERGIES (Unverified , 01/31/25) Home Meds Active Scripts Spironolactone (Spironolactone) 25 Mg Tab, 1 TAB PO DAILY for 30 Days, #30 TAB 1 Refill Prov:GIORGIO VASQUEZ RESIDENT 02/04/25 Metoprolol Succinate (Metoprolol Succinate Er) 25 Mg Tab, 1 TAB PO DAILY for 30 Days, #30 TAB 5 Refills Prov:GIORGIO VASQUEZ RESIDENT 02/04/25 Furosemide (Furosemide) 20 Mg Tab, 1 TAB PO DAILY for 30 Days, #30 TAB 1 Refill Prov:GIORGIO VASQUEZ RESIDENT 02/04/25 Empagliflozin (Jardiance) 10 Mg Tab, 10 MG PO DAILY for 30 Days, #30 TAB Prov:GIORGIO VASQUEZ RESIDENT 02/04/25 Information Source: Patient Mode of Arrival: Ambulatory Severity: Moderate Timing: Days Duration: Intermittent, Days Prehospital treatment: None Location: Chest (L) Radiation: Abdomen Quality: Pressure Onset: At Rest Cardiac Risk Factors: Diabetes PE Risk Factors: None History of: None Associated Signs and Symptoms: SOB, Abdominal Pain Past Medical History PAST MEDICAL HISTORY: CAD, CHF, DM Surgical History: Denies all surgeries Family History Family History: Reviewed,noncontributory to illness Social History Smoker: Non-Smoker Alcohol: Denies ETOH Use Drugs: Denies Drug Use Lives In: Home All Other Systems: Reviewed and Negative (comprehensive exam was negavtive accept what is in the HPI) Physical Exam General Appearance: No Apparent Distress HEENT: Other (Pupils and face symmetric. Moist mucous membranes.) Neck: Full Range of Motion, Normal Inspection Respiratory: Crackles, Decreased Breath Sounds, No Accessory Muscle Use, No Respiratory Distress Cardiovascular: No JVD, Regular Rate/Rhythm Breast Exam: Deferred Gastrointestinal: Non Tender, Soft Genitalia: Deferred Pelvic: Deferred Rectal: Deferred Extremities: Leg edema, Normal range of motion, Non-tender, Pedal edema Neurologic: Alert (Oriented x4), Normal Affect, Normal Mood, Other (Ambulatory) Cerebellar Function: NOT DONE Reflexes: NOT DONE Skin: Dry, Normal Color, Warm Lymphatic: NOT DONE EKG EKG : Comments Sinus tach, rate 104, normal intervals, normal axis, nonspecific intraventricular conduction delay, occasional PVCs, nonspecific T change. Was a procedure done? Was a procedure done?: No CP Differential Dx Differential Diagnosis: Angina, Anxiety / Panic Attack, Electrolyte Disorder, Heart Failure, MN, Pulmonary Embolus, Renal Failure Differential Diagnosis: CHF Differential Diagnosis: Angina, Chest Wall Pain, Cholelithiasis, Costochondritis, Esophageal reflux/spasm, Gastritis, Myocardial Infarction, Pericarditis, Pneumonia, Pneumothorax, Pulmonary Embolus X-Ray, Labs, Meds, VS Vital Signs Date Time Temp Pulse Resp B/P (MAP) Pulse Ox O2 Delivery O2 Flow Rate FiO2 02/16/25 21:52 97.2 107 18 118/85 (96) 99 97.2 Lab Test 02/16/25 22:44 02/16/25 21:50 02/16/25 21:47 Range/Units Troponin I High Sensitivity 31 29 </=54 ng/L POC Glucose 129 H 70-106 mg/dl White Blood Count 5.9 4.4-10.8 10^3/uL Red Blood Count 5.23 4.5-5.90 10^6/uL Hemoglobin 15.0 13.5-17.5 g/dL Hematocrit 45.5 41.0-53.0 % Mean Corpuscular Volume 86.9 80.0-100.0 fL Mean Corpuscular Hemoglobin 28.7 28.0-32.0 pg Mean Corpuscular Hemoglobin Concent 33.0 32.0-36.0 g/dL Red Cell Distribution Width 15.2 H 11.8-14.3 % Platelet Count 177 140-450 10^3/uL Mean Platelet Volume 10.3 6.9-10.8 fL Neutrophils (%) (Auto) 55.1 37.0-80.0 % Lymphocytes (%) (Auto) 35.2 10.0-50.0 % Monocytes (%) (Auto) 7.8 0.0-12.0 % Eosinophils (%) (Auto) 1.5 0.0-7.0 % Basophils (%) (Auto) 0.4 0.0-2.0 % Neutrophils # (Auto) 3.3 1.6-8.6 10 ^3/uL Lymphocytes # (Auto) 2.1 0.4-5.4 10 ^3/uL Monocytes # (Auto) 0.5 0-1.3 10 ^3/uL Eosinophils # (Auto) 0.1 0-0.8 10 ^3/uL Basophils # (Auto) 0 0-0.2 10 ^3/uL Nucleated Red Blood Cells 0.1 % Sodium Level 140 136-145 mmol/L Potassium Level 4.8 3.5-5.1 mmol/L Chloride Level 107 98-107 mmol/L Carbon Dioxide Level 23 20-31 mmol/L Anion Gap 10 5-15 Blood Urea Nitrogen 21 9-23 mg/dL Creatinine 1.67 H 0.700-1.30 mg/dL Glomerular Filtration Rate Calc 52 >90 mL/min BUN/Creatinine Ratio 12.6 10.0-20.0 Serum Glucose 132 H 74-106 mg/dL Calcium Level 10.1 8.7-10.4 mg/dL B-Type Natriuretic Peptide 1604.62 0-100 pg/mL PATIENT: OSCAR BRAGG ACCT: [id number] UNIT: [id number] : 1985 LOC: ER ROOM / BED: / AGE / SEX: 39 / M ADM STATUS: REG ER SERVICE 58 ORDERING PHYSICIAN: GEETA GONSALEZ MD PROCEDURE(s): CXRP - CHEST PORTABLE REASON: cp sob ORDER NUMBER(s): [id number], ACCESSION NUMBER(s): [id number] CHEST RADIOGRAPH Indication: cp sob Technique: Single frontal view of the chest was obtained Comparison: XY CHEST PORTABLE on DOS: 01/31/25 FINDINGS: Lines and Tubes: None Lungs: No focal consolidation. Pleura: Small left pleural effusion unchanged 01/31/2025 No pneumothorax. Cardiomediastinal contours: Unremarkable Bones: No acute osseous abnormality. IMPRESSION: 1. No significant change from 01/31/2025 HS:Y X-Ray, Labs, Meds, VS Comment 39-year-old male with a history of CAD, diabetes and CHF complaining of chest p ain and shortness of breath Vitals remarkable for heart rate 107 Exam remarkable for diminished breath sounds and rales at the bases, 2+ lower extremity edema Rhythm strip independently interpreted by me: Sinus tach, rate 104, occasional PVCs Chest x-ray independently interpreted by me: Cardiomegaly with pulmonary vascular prominence, small left pleural effusion. Per Radiology, no significant change from x-ray dated 01/31/2025 CBC unremarkable, metabolic panel remarkable for creatinine 1.67, BNP 1604.62, 2 serial troponins negative Patient treated with the following in the ED: Aspirin 325 mg p.o., nitro bid 1/2 inch to chest wall, Lasix 40 mg IV, morphine 2 mg IV, Zofran 4 mg IV On re-evaluation, patient states chest pain has resolved. Vitals are stable. Plan is to admit the patient for diuresis and Cardiology evaluation. Time of 1ST Reevaluation: 22:31 Reevaluation 1ST: Unchanged Patient Education/Counseling: Diagnosis, Treatment, Need For Follow Up Family Education/Counseling: No Family Present SEPSIS Sepsis Screen Date sepsis recognized/suspect: Feb 16, 2025 Time Sepsis recognized/suspect: 2154 Recent Procedure: No On Antibiotic Therapy: No Respiratory Rate >20: No Heart Rate >90: Yes Temp<36 C (96.8 F) or >38.3 C: No SBP <90 or MAP <65 mmHG: No New Acute Mental Status Change: No Is the patient on CPAP, BIPAP,: No SEPSIS EXCLUSION NOTE: Sepsis Exclusion Note: Patient presents with SIRS criteria, but the SIRS response is attributed to [ chest pain, CHF], not a suspected infection. Sepsis bundle is not initiated at this time, due to this reason. Further management will focus on the treatment of the above condition (s). Physician Orders Chest Portable (02/16/25 21:59) Urinalysis (02/16/25 21:59) Electrocardigram (02/16/25 21:59) Troponin-I Hs (02/17/25 00:59) Electrocardigram (02/16/25 22:59) Electrocardigram (02/17/25 00:59) Vital Signs Date Time Temp Pulse Resp B/P (MAP) Pulse Ox O2 Delivery O2 Flow Rate FiO2 02/16/25 21:52 97.2 107 18 118/85 (96) 99 97.2 Laboratory Tests Test 02/16/25 21:47 White Blood Count 5.9 10^3/uL (4.4-10.8) Departure 1 Departure Time of Disposition: 00:27 Impression: Primary Impression: CHF exacerbation Qualified Codes: I50.9 - Heart failure, unspecified Additional Impression: Chest pain with high risk for cardiac etiology Disposition: ADMITTED INPATIENT Admit to: Tele Condition: Guarded Critical Care Note Critical Care Time?: No Stability Stability form required: No Heart Score Heart Score: Heart Score Response (Comments) Value History Highly Suspicious 2 EKG Repolarization Disturb 1 Age <45 0 Risk Factors >3 or Hx ASHD 2 Troponin Normal limit 0 Total 5 I personally scribed for GEETA GONSALEZ MD ([email or web address]) on 02/16/25 at 22:06. Electronically submitted by Cheo Huerta ([email or web address]). I personally scribed for GEETA GONSALEZ MD ([email or web address]) on 02/16/25 at 22:32. Electronically submitted by Cheo Huerta ([email or web address]). GEETA GONSALEZ MD Feb 16, 2025 22:06
[2025-02-16 22:12] LABS: Hematocrit 45.5 % (41.0-53.0); Hemoglobin 15.0 g/dL (13.5-17.5); Mean Corpuscular Hemoglobin 28.7 pg (28.0-32.0); Mean Corpuscular Volume 86.9 fL (80.0-100.0); Nucleated Red Blood Cells % 0.1 %
[2025-02-16 22:21] LABS: Chloride 107 mmol/L (98-107); Potassium 4.8 mmol/L (3.5-5.1); Sodium 140 mmol/L (136-145)
[2025-02-16 22:22] LABS: Anion Gap 10 (5-15); Calcium 10.1 mg/dL (8.7-10.4); Carbon Dioxide 23 mmol/L (20-31)
--- NOTE | 2025-02-16 22:25 | DVH ---
CHEST RADIOGRAPH Indication: cp sob Technique: Single frontal view of the chest was obtained Comparison: XY CHEST PORTABLE on DOS: 01/31/25 FINDINGS: Lines and Tubes: None Lungs: No focal consolidation. Pleura: Small left pleural effusion unchanged 01/31/2025 No pneumothorax. Cardiomediastinal contours: Unremarkable Bones: No acute osseous abnormality. IMPRESSION: 1. No significant change from 01/31/2025 HS:Y
[2025-02-16 22:27] LABS: BUN/Creatinine Ratio 12.6 (10.0-20.0); Blood Urea Nitrogen 21 mg/dL (9-23)
[2025-02-16 22:34] LABS: Glucose 132 mg/dL (74-106)
[2025-02-17] VITALS (54 sets, daily range): BP systolic 100–144; BP diastolic 56–95; PULSE 68–98; RESP 12–28; TEMP 97.6–98.6; O2SAT 93–100
[2025-02-17] MEDS: MORPHINE SULFATE INJ 2 MG/ml SYRG IV ONE (01:21)
[2025-02-17] MEDS: FUROSEMIDE 40 MG/4 ML VIAL IV ONE (01:21)
[2025-02-17] MEDS: ONDANSETRON HCL 4 MG/2 ML VIAL IV ONE (01:21)
[2025-02-17] MEDS: NITROGLYCERIN 2% OINT 1GM PKG TD ONE (01:22)
[2025-02-17] MEDS ORDERED: NITROGLYCERIN 0.4 MG SL TAB SL PRN (03:15)
[2025-02-17] MEDS ORDERED: MORPHINE SULFATE INJ 2 MG/ml SYRG IV PRN (03:15)
--- NOTE | 2025-02-17 04:08 | DVHHP2 ---
History of Present Illness History of Present Illness This is a 39-year-old male with past medical history of DM 2, CHF with reduced EF came to ED with the complain of epigastric and retrosternal pain for 10 days which is worsen for last 3 days, localized, occasionally radiate on the back, sometimes pressure-like sensation, 7/10 intensity, aggravated on any kind of exertion and mildly relieved on rest. Patient having shortness of breaths with the same duration which is also increase any kind of exertion or activity. Patient feeling fatigue, occasional dizziness, loss of appetite, decreased urination, orthopnea and bilateral leg swelling. Patient recently discharged on 02/03/2025 with diagnosed acute on chronic systolic heart failure.CT ABDOMEN PELVIS WITHOUT CONTRAST ON 01/31/2025: Large bilateral pleural effusions, boviz-phowrik-egwe-left, with adjacent atelectasis and lobar collapse. Cardiomegaly and trace pericardial effusion. Moderate pericholecystic edema. Moderate abdominopelvic ascites. Large bilateral pleural effusions, gqfnb-fkybmjn-mzkx-left, with adjacent atelectasis and lobar collapse. Cardiomegaly and trace pericardial effusion. Moderate pericholecystic edema. Moderate abdominopelvic ascites. Echo on 01/31/2025 shows remarkably dilated all cardiac chamber, severe LV and RV with global hypokinesis, left ventricular ejection fraction only 10%, severe MR and TR, severe pulmonary hypertension, RVSP is 56 and is very high. Patient currently denies any cough, headache, nausea, vomiting, diarrhea, dysuria. PAST MEDICAL HISTORY: CAD, CHF, DM2 Surgical History: None Family History: Nothing contributory Smoker: Non-Smoker Alcohol: Denies ETOH Use Drugs: Denies Drug Use Lives In: Home Allergy: No known allergy PCP: Not selected Review of Systems Constitutional: Yes: Weakness; No: Fever, Chills, Sweats, Malaise, Other Eyes: No: Pain, Vision change, Conjunctivae inflammation, Eyelid inflammation, Other, Redness ENT: No: Ear pain, Ear discharge, Nose pain, Nose discharge, Nose congestion, Mouth pain, Mouth swelling, Throat pain, Throat swelling, Other Respiratory: Shortness of breath, SOB with excertion; No: Cough, Dry, Wheezing, Hemoptysis, Pleuritic Pain, Sputum, Wheezing, Other Cardiovascular: Chest Pain, Orthopnea, Edema; No: Palpitations, Paroxysmal Noc. Dyspnea, Lt Headedness, Other Gastrointestinal: Abdominal Pain; No: Nausea, Vomiting, Diarrhea, Constipation, Melena, Hematochezia, Other Genitourinary: No Dysuria, No Frequency, No Incontinence, No Hematuria, No Retention; Other (Decreased volume of urination) Musculoskeletal: No: other, neck pain, shoulder pain, arm pain, back pain, hand pain, leg pain, foot pain Skin: No: Rash, Lesions, Jaundice, Bruising, Other Neurological: No: Weakness, Numbness, Incoordination, Change in speech, Confusion, Seizures, Other Allergies: Coded Allergies: NO KNOWN ALLERGIES (Unverified , 01/31/25) Medications Current Medications Medications Dose Ordered Sig/Shanika Route Start Time Stop Time Status Last Admin Dose Admin Nitroglycerin 0.4 mg Q5MINP PRN SL 02/17/25 03:15 Morphine Sulfate 2 mg Q30M PRN IV 02/17/25 03:15 Exam Vital Signs Vital Signs Date Time Temp Pulse Resp B/P (MAP) Pulse Ox O2 Delivery O2 Flow Rate FiO2 02/17/25 03:30 97.8 86 16 80/51 (61) 97 97.8 02/17/25 01:14 Room Air General Appearance: Alert, Oriented X3, Cooperative HEENT: Atraumatic, PERRLA, EOMI Respiratory: Clear to auscultation, Normal air movement, Other (Occasional crepitation bilateral basal lung) Cardiovascular: Regular rate, Normal S1, Normal S2 Abdominal: Normal bowel sounds, Soft, No tenderness, No hepatospenomegaly Extremities: No clubbing, No cyanosis, Other (Bilateral lower extremity edema) Skin: No rashes, No breakdown Neuro: Normal gait, Normal speech, Normal tone, Sensation intact Labs/Xrays Labs Test 02/17/25 00:30 02/16/25 21:50 02/16/25 21:47 Range/Units Troponin I High Sensitivity 32 </=54 ng/L POC Glucose 129 H 70-106 mg/dl White Blood Count 5.9 4.4-10.8 10^3/uL Red Blood Count 5.23 4.5-5.90 10^6/uL Hemoglobin 15.0 13.5-17.5 g/dL Hematocrit 45.5 41.0-53.0 % Mean Corpuscular Volume 86.9 80.0-100.0 fL Mean Corpuscular Hemoglobin 28.7 28.0-32.0 pg Mean Corpuscular Hemoglobin Concent 33.0 32.0-36.0 g/dL Red Cell Distribution Width 15.2 H 11.8-14.3 % Platelet Count 177 140-450 10^3/uL Mean Platelet Volume 10.3 6.9-10.8 fL Neutrophils (%) (Auto) 55.1 37.0-80.0 % Lymphocytes (%) (Auto) 35.2 10.0-50.0 % Monocytes (%) (Auto) 7.8 0.0-12.0 % Eosinophils (%) (Auto) 1.5 0.0-7.0 % Basophils (%) (Auto) 0.4 0.0-2.0 % Neutrophils # (Auto) 3.3 1.6-8.6 10 ^3/uL Lymphocytes # (Auto) 2.1 0.4-5.4 10 ^3/uL Monocytes # (Auto) 0.5 0-1.3 10 ^3/uL Eosinophils # (Auto) 0.1 0-0.8 10 ^3/uL Basophils # (Auto) 0 0-0.2 10 ^3/uL Nucleated Red Blood Cells 0.1 % Sodium Level 140 136-145 mmol/L Potassium Level 4.8 3.5-5.1 mmol/L Chloride Level 107 98-107 mmol/L Carbon Dioxide Level 23 20-31 mmol/L Anion Gap 10 5-15 Blood Urea Nitrogen 21 9-23 mg/dL Creatinine 1.67 H 0.700-1.30 mg/dL Glomerular Filtration Rate Calc 52 >90 mL/min BUN/Creatinine Ratio 12.6 10.0-20.0 Serum Glucose 132 H 74-106 mg/dL Calcium Level 10.1 8.7-10.4 mg/dL B-Type Natriuretic Peptide 1604.62 0-100 pg/mL SEPSIS Sepsis Screen Date sepsis recognized/suspect: Feb 16, 2025 Time Sepsis recognized/suspect: 2154 Recent Procedure: No On Antibiotic Therapy: No Respiratory Rate >20: No Heart Rate >90: Yes Temp<36 C (96.8 F) or >38.3 C: No SBP <90 or MAP <65 mmHG: No New Acute Mental Status Change: No Is the patient on CPAP, BIPAP,: No Physician Orders Chest Portable (02/16/25 21:59) Urinalysis (02/16/25 21:59) Electrocardigram (02/16/25 21:59) Electrocardigram (02/16/25 22:59) Electrocardigram (02/17/25 00:59) Admit (02/17/25 03:01) Nitroglycerin Sublingual (Ntrostat Subli (02/17/25 03:15) Morphine Sulfate Injection (02/17/25 03:15) Oxygen By Nasal Cannula (02/17/25 03:01) Stat Ekg For Chest Pain (02/17/25 03:01) Notify Of Changes From Base (02/17/25 03:01) Catalog Librarian For 24 Hours (02/17/25 03:01) Emergency Dysrhythmia Protocol (02/17/25 03:01) Rhythm Strips Once Every Shift (02/17/25 03:01) Cardiac Diet-2gna,Lofat,Lochol (02/17/25 Breakfast) Vital Signs Date Time Temp Pulse Resp B/P (MAP) Pulse Ox O2 Delivery O2 Flow Rate FiO2 02/17/25 03:30 97.8 86 16 80/51 (61) 97 97.8 02/17/25 02:05 95/69 02/17/25 01:59 85 16 95/69 02/17/25 01:22 99/73 02/17/25 01:21 95 18 99/73 02/17/25 01:14 95 16 96 Room Air 02/17/25 01:14 97.5 95 16 99/73 (82) 96 97.5 02/16/25 21:52 97.2 107 18 118/85 (96) 99 97.2 Laboratory Tests Test 02/16/25 21:47 White Blood Count 5.9 10^3/uL (4.4-10.8) Medications Medications Dose Ordered Sig/Shanika Route Start Time Stop Time Status Last Admin Dose Admin Aspirin 325 mg ONCE ONCE PO 02/16/25 22:00 02/16/25 22:03 DC 02/17/25 01:14 325 MG Furosemide 40 mg ONCE ONCE IV 02/16/25 22:00 02/16/25 22:03 DC 02/17/25 02:05 40 MG Morphine Sulfate 2 mg ONCE ONCE IV 02/16/25 22:00 02/16/25 22:03 DC 02/17/25 01:21 2 MG Ondansetron HCl 4 mg ONCE ONCE IV 02/16/25 22:00 02/16/25 22:03 DC 02/17/25 01:21 4 MG Assessment/Plan Assessment/Plan # HECTOR ON CKD DUE TO VASOMOTOR NEPHROPATHY -patient complain decreased urinary volume -Serum creatinine 1.67, baseline 1.23 -eGFR 52 # ACUTE ON CHRONIC SYSTOLIC HEART FAILURE -patient came with shortness of breaths, bilateral leg swelling, orthopnea -Recent echo (01/31/2025) EF 10% with global hypokinesis -CXR -Pleura: Small left pleural effusion unchanged 01/31/2025. No pneumothorax. Cardiomediastinal contours: Unremarkable -BNP 1604.62 -Troponin 29> 31> 32 -Received morphine, nitroglycerin, ondansetron, furosemide 40 mg IV, aspirin 325 mg -Lasix 40 mg IV daily -Hold metoprolol for now due to low blood pressure, resume when BP stable # SEVERE PULMONARY HYPERTENSION -Echo on 01/31/2025 shows remarkably dilated all cardiac chamber, severe pu lmonary hypertension, RVSP is 56 and is very high. # TYPE 2 DIABETES MELLITUS WITH HYPERGLYCEMIA -HbA1c 9.9 on 01/31/2025 -Insulin sliding scale -Monitor blood sugars # ABDOMINAL PAIN DUE TO GERD -Patient came with upper abdominal pain -Patient is pantoprazole 40 mg p.o. daily # Left pleural effusion due to CHF -patient received IV Lasix 40 mg in ER SPOUSE, Natali work as a supervisory lifeguard. Diet: Cardiac GI prophylaxis: Pantoprazole 40 mg p.o. daily DVT prophylaxis: Lovenox 30 mg SC daily Goals of care discussions. More than 27 minutes spent. Full code status. Case discussed with Dr. Rausch Plan discussed with: Patient, Other (Spouse Natali, nurse) My Orders Orders - LISA CONSTANTINO RESIDENT Procedure Category Date Status Time Admit ADMIT 02/17/25 Transmitted 03:01 Nitroglycerin PHA 02/17/25 In Process Sublingual (Ntrostat 03:15 Morphine Sulfate PHA 02/17/25 In Process Injection 03:15 Oxygen By Nasal RT 02/17/25 Transmitted Cannula 03:01 Stat Ekg For Chest SANGITA 02/17/25 In Process Pain 03:01 Notify Md Of Changes [facility] 02/17/25 In Process From Base 03:01 Catalog Librarian For [facility] 02/17/25 In Process 24 Hours 03:01 Emergency Dysrhythmia [facility] 02/17/25 In Process Protocol 03:01 Rhythm Strips Once [facility] 02/17/25 In Process Every Shift 03:01 Cardiac DIET 02/17/25 Transmitted Diet-2gna,Lofat,Lochol Breakfast Date of Service: Feb 17, 2025 Billing Provider: YURIDIA RAUSCH MD Common Visit Codes: [id number] INP/OBS CARE (HIGH) Secondary Visit Codes: 72362-[id number] CARE PLAN 30 MINUTES LISA CONSTANTINO RESIDENT Feb 17, 2025 04:08
[2025-02-17] MEDS ORDERED: METF-370 PO (05:01)
[2025-02-17] MEDS ORDERED: DEXTROSE (50%) 50ML SYRG IV PRN ×2 (07:15→17:30)
[2025-02-17] MEDS: FUROSEMIDE 40 MG/4 ML VIAL IV SCH (09:44)
[2025-02-17] MEDS: EMPAGLIFLOZIN 10 MG TAB PO SCH (09:49)
[2025-02-17] MEDS: SPIRONOLACTONE 25 MG TAB PO SCH (09:50)
--- NOTE | 2025-02-17 10:53 | DVHINCON2 ---
Date Seen: Feb 17, 2025 Referring Physician MD Lorenzo Reason for Consultation CHF History of Present Illness This is a pleasant Macanese-speaking mostly 39-year-old man who presented to the emergency room with a chief complaint of shortness of breath and chest pain since yesterday. The patient complains of progressive shortness of breath associated with PND, bilateral lower extremity edema, increased abdominal girth, and chest pain described as a band around his chest area radiating to the upper back. He had a recent admission to this facility earlier this month where he was diagnosed with a cardiomyopathy with an LVEF of only 10%. There was no ischemic workup completed at that time. The patient denies any history of drug abuse or alcohol abuse. He also denies family history for cardiovascular disease. A 12 lead electrocardiogram revealed a sinus rhythm with diffuse nonspecific ST-T changes. Serial troponin levels are negative. Significant medical history includes unspecified dilated cardiomyopathy, severe MR/TR/PAH, liver disease, chronic kidney disease, and njp-zvptckj-rturtfink diabetes mellitus. Past Medical History Past medical history reviewed. No other significant than mentioned above. Past Surgical History Past surgical history reviewed. No other significant than mentioned above. Family History: Patient reports no known family medical history. Family History Family history reviewed. Social History Denies the use of illicit drugs, alcohol, or tobacco use. Allergies: Coded Allergies: NO KNOWN ALLERGIES (Unverified , 01/31/25) Home Meds Active Scripts Spironolactone (Spironolactone) 25 Mg Tab, 1 TAB PO DAILY for 30 Days, #30 TAB 1 Refill Prov:GIORGIO VASQUEZ RESIDENT 02/04/25 Metoprolol Succinate (Metoprolol Succinate Er) 25 Mg Tab, 1 TAB PO DAILY for 30 Days, #30 TAB 5 Refills Prov:GIORGIO VASQUEZ RESIDENT 02/04/25 Furosemide (Furosemide) 20 Mg Tab, 1 TAB PO DAILY for 30 Days, #30 TAB 1 Refill Prov:GIORGIO VASQUEZ RESIDENT 02/04/25 Empagliflozin (Jardiance) 10 Mg Tab, 10 MG PO DAILY for 30 Days, #30 TAB Prov:GIORGIO VASQUEZ RESIDENT 02/04/25 Reported Medications Metformin Hydrochloride (Metformin Hcl) 500 Mg Tab, 1 TAB PO TID, #60 TAB 3 Refills 02/17/25 Home Meds Home medications reviewed. Current Medications Current Medications Medications (Trade) Dose Ordered Sig/Shanika Route PRN Reason Start Time Stop Time Status Last Admin Nitroglycerin (Ntrostat Sublingual) 0.4 mg Q5MINP PRN SL FOR CHEST PAIN 02/17/25 03:15 Morphine Sulfate 2 mg Q30M PRN IV FOR CHEST PAIN 02/17/25 03:15 Furosemide (Lasix Injection) 40 mg DAILY IV 02/17/25 10:00 Empaglifozin (Jardiance) 10 mg DAILY PO 02/17/25 10:00 02/17/25 09:49 Spironolactone (Aldactone) 25 mg DAILY PO 02/17/25 10:00 Diagnostic Test (Pha) (Accu-Chek Comfort Curve T) 1 strip ACHS 02/17/25 11:30 Insulin Human Regular (InsuLIN R) ACHS SC 02/17/25 11:30 Dextrose 50 ml UD PRN IV Blood Sugar LESS THAN 60 02/17/25 07:15 Review of Systems Constitutional: No symptom reported Ears, Nose, & Throat: No symptom reported Eyes: No symptom reported Neurological: No symptoms reported Pulmonary/Respiratory: SOB, PND Cardiovascular: Chest pain Gastrointestinal: Increased abdominal girth Genitourinary: No symptom reported Musculoskeletal: BLE edema Skin: No symptom reported Psychiatric: No symptom reported Endocrine: No symptom reported Hemotologic/Lymphatic: No symptom reported Vital Signs Vital Signs Date Time Temp Pulse Resp B/P (MAP) Pulse Ox O2 Delivery O2 Flow Rate FiO2 02/17/25 09:44 106/83 02/17/25 08:02 94 02/17/25 08:00 97.8 16 97 97.8 02/17/25 08:00 Room Air* 0 21 Physical Exam General Appearance: Cooperative. Well developed. Well nourished. In no acute distress Head Exam: Normal inspection Neck Exam: Normal inspection. Non-tender. Normal alignment Pulmonary/Respiratory: Chest non-tender. Clear bilateral breath sounds Cardiovascular/Chest: Regular rate and rhythm. S1, S2. Sinus rhythm with nonspecific ST-T changes. No murmurs. No JVD. Peripheral Pulses: 2+ Radial (R). 2+ Radial (L). 2+ Pedal (R). 2+ Pedal (L) Abdominal Exam: Normal bowel sounds. Soft. Nontender. Ankle Exam: Positive ankle pitting edema, 1+ Lower extremities: Positive lower extremity pitting edema, 1+ Neuro/Mental Status: A&O x4. Coherent Thoughts/Psych: Normal thought pattern. Appropriate mood and affect. Good judgement and insight Appearance: In no acute distress Skin Exam: Normal inspection. Normal color. Warm. Dry Labs/Diagnostic Data Labs Test 02/17/25 07:49 02/17/25 00:30 02/16/25 21:47 Range/Units POC Glucose 190 H 70-106 mg/dl Troponin I High Sensitivity 32 </=54 ng/L White Blood Count 5.9 4.4-10.8 10^3/uL Red Blood Count 5.23 4.5-5.90 10^6/uL Hemoglobin 15.0 13.5-17.5 g/dL Hematocrit 45.5 41.0-53.0 % Mean Corpuscular Volume 86.9 80.0-100.0 fL Mean Corpuscular Hemoglobin 28.7 28.0-32.0 pg Mean Corpuscular Hemoglobin Concent 33.0 32.0-36.0 g/dL Red Cell Distribution Width 15.2 H 11.8-14.3 % Platelet Count 177 140-450 10^3/uL Mean Platelet Volume 10.3 6.9-10.8 fL Neutrophils (%) (Auto) 55.1 37.0-80.0 % Lymphocytes (%) (Auto) 35.2 10.0-50.0 % Monocytes (%) (Auto) 7.8 0.0-12.0 % Eosinophils (%) (Auto) 1.5 0.0-7.0 % Basophils (%) (Auto) 0.4 0.0-2.0 % Neutrophils # (Auto) 3.3 1.6-8.6 10 ^3/uL Lymphocytes # (Auto) 2.1 0.4-5.4 10 ^3/uL Monocytes # (Auto) 0.5 0-1.3 10 ^3/uL Eosinophils # (Auto) 0.1 0-0.8 10 ^3/uL Basophils # (Auto) 0 0-0.2 10 ^3/uL Nucleated Red Blood Cells 0.1 % Sodium Level 140 136-145 mmol/L Potassium Level 4.8 3.5-5.1 mmol/L Chloride Level 107 98-107 mmol/L Carbon Dioxide Level 23 20-31 mmol/L Anion Gap 10 5-15 Blood Urea Nitrogen 21 9-23 mg/dL Creatinine 1.67 H 0.700-1.30 mg/dL Glomerular Filtration Rate Calc 52 >90 mL/min BUN/Creatinine Ratio 12.6 10.0-20.0 Serum Glucose 132 H 74-106 mg/dL Calcium Level 10.1 8.7-10.4 mg/dL B-Type Natriuretic Peptide 1604.62 0-100 pg/mL Assessment Unspecified dilated cardiomyopathy with LVEF at 10% Acute on chronic decompensated HFrEF, NYHA Class III Wry-bvlvoqd-ysvatlkpr diabetes mellitus Dyslipidemia HECTOR on CKD Obesity Plan/Recommendation (Dr. Mary) Scheduled for coronary angiogram and cardiac catheterization at 1st available. All risks and benefits of the procedure were discussed with the patient who agrees to proceed with intervention. All questions answered. Risks include bleeding, LUKE, CVA, coronary dissection, and even . In the meantime, continue preload and afterload reduction as tolerated. Strict I&Os, daily weight, maintain fluid restrictions. GDMT for HFrEF as renal function and BP permits, currently on low-dose BB with parameters. Initiate social work administrator consultation for insurance. Further recommendations per clinical course. Thank you for allowing us to participate in this patient's care. Please call if you have any questions or concerns. Critical care time: 45 min. This medical document was created using an electronic medical record system with voice recognition software and computerized dictation system. Although this document has been carefully reviewed, there might still be some phonetic and typographical errors. Occasional wrong-word or ``sound-alike substitutions may have occurred due to the inherent limitations of voice recognition software. These areas are purely typographical due to imperfections of the software programs and do not reflect any compromise in the patient's medical care. Please read the chart carefully and recognize, using context, where these substitutions have occurred. Plan discussed with: Patient, Other NYHA Physical activity limitations: Class3(Marked) ordinary (activity causes symtoms) Date of Service: Feb 17, 2025 Billing Provider: GEORGE BLUNT Cardiology Common Codes: 04698-[id number] CARE 30-74 MIN GEORGE BLUNT Feb 17, 2025 10:53
[2025-02-17] MEDS: FUROSEMIDE 20 MG/2 ML VIAL IV ONE (11:30)
[2025-02-17] MEDS: ACCU-CHEK COMFORT CURVE STRIP VI SCH ×2 (11:30→22:07)
--- NOTE | 2025-02-17 11:54 | DVHPNRES ---
Progress Note Date Seen: Feb 17, 2025 Resident Creating Document: MARCELO SALAS RESIDENT Has the PT tested + for MRSA If YES, has PT been informed?: No Medical Necessity Reason Pt with a Central, PICC or Fol: No Subjective Review of Systems Mr. Hopkins is a 39-year-old male with past medical history of DM 2, CHF with reduced EF came to ED with the complain of epigastric and retrosternal pain for 10 days which is worsen for last 3 days, localized, occasionally radiate on the back, sometimes pressure-like sensation, 7/10 intensity, aggravated on any kind of exertion and mildly relieved on rest. Patient having shortness of breaths with the same duration which is also increase any kind of exertion or activity. Patient feeling fatigue, occasional dizziness, loss of appetite, decreased urination, orthopnea and bilateral leg swelling. Patient was recently discharged on 02/03/2025 with diagnosed acute on chronic systolic heart failure.CT ABDOMEN PELVIS WITHOUT CONTRAST ON 01/31/2025: Large bilateral pleural effusions, moaxk-eikbjqb-bhzn-left, with adjacent atelectasis and lobar collapse. Cardiomegaly and trace pericardial effusion. Moderate pericholecystic edema. Moderate abdominopelvic ascites. Large bilateral pleural effusions, xaoas-ptytexp-kjmv-left, with adjacent atelectasis and lobar collapse. Cardiomegaly and trace pericardial effusion. Moderate pericholecystic edema. Moderate abdominopelvic ascites. Echo on 01/31/2025 shows remarkably dilated all cardiac chamber, severe LV and RV with global hypokinesis, left ventricular ejection fraction only 10%, severe MR and TR, severe pulmonary hypertension, RVSP is 56 and is very high. Patient currently denies any cough, headache, nausea, vomiting, diarrhea, dysuria. Today, the patient was examinated at the bedside. The patient reports dypsnea, chest pain 2/10. BNP is 1,604, troponins: 29, 31, 32. Cardiology is onboard, patient will have left catheterization. We will continue following up this patient closely. ROS: Constitutional: Yes: Weakness; No: Fever, Chills, Sweats, Malaise, Other Eyes: No: Pain, Vision change, Conjunctivae inflammation, Eyelid inflammation, Other, Redness ENT: No: Ear pain, Ear discharge, Nose pain, Nose discharge, Nose congestion, Mouth pain, Mouth swelling, Throat pain, Throat swelling, Other Respiratory: Shortness of breath, SOB with exertion, orthopnea ; No: Cough, Dry, Wheezing, Hemoptysis, Pleuritic Pain, Sputum, Wheezing, Other Cardiovascular: Chest Pain, Orthopnea, No: Palpitations, Paroxysmal Noc. Dyspnea, Lt Headedness, Other Gastrointestinal:No: Nausea, Vomiting, Diarrhea, Constipation, Melena, Hematochezia, Other Genitourinary: No Dysuria, No Frequency, No Incontinence, No Hematuria, No Retention; Other (Decreased volume of urination) Musculoskeletal: Bilateral Leg swelling. No: other, neck pain, shoulder pain, arm pain, back pain, hand pain, leg pain, foot pain Skin: No: Rash, Lesions, Jaundice, Bruising, Other Neurological: No: Weakness, Numbness, Incoordination, Change in speech, Confusion, Seizures, Other Allergies: Not know allergies. Objective vital signs Vital Sign Date Time Temp Pulse Resp B/P (MAP) Pulse Ox O2 Delivery O2 Flow Rate FiO2 02/17/25 09:44 106/83 02/17/25 08:02 94 02/17/25 08:00 97.8 16 97 97.8 02/17/25 08:00 Room Air* 0 21 medications Current Medications Medications Dose Ordered Sig/Shanika Route Start Time Stop Time Status Last Admin Dose Admin Nitroglycerin 0.4 mg Q5MINP PRN SL 02/17/25 03:15 Morphine Sulfate 2 mg Q30M PRN IV 02/17/25 03:15 Empaglifozin 10 mg DAILY PO 02/17/25 10:00 02/17/25 09:49 10 MG Diagnostic Test (Pha) 1 strip ACHS 02/17/25 11:30 Insulin Human Regular ACHS SC 02/17/25 11:30 Dextrose 50 ml UD PRN IV 02/17/25 07:15 Metoprolol Tartrate 12.5 mg BID PO 02/17/25 22:00 UNV Furosemide 20 mg BIDD IV 02/17/25 18:00 UNV Examination General Appearance: Alert, Oriented X3, Cooperative HEENT: Atraumatic, PERRLA, EOMI Respiratory: crackles on mid lung pollack and bases, bilateral decrease lung sounds. Cardiovascular: Regular rate, Normal S1, Normal S2 Abdominal: soft, non tender. Normal bowel sounds, Soft, No tenderness, No hepatospenomegaly Extremities: Bilateral lower extremity pitting edema. Skin: No rashes, No breakdown Neuro: Normal gait, Normal speech, Normal tone, Sensation intact laboratory and microbiology Laboratory Tests 02/16/25 21:47 Test 02/16/25 21:47 Range/Units Serum Glucose 132 H 74-106 mg/dL Problem List/Assessment/Plan Problem List/Assessment/Plan #Acute chest pain, R/O ACS Troponin 29, 31, 32 # Acute on chronic systolic hearth failure -patient came with shortness of breaths, bilateral leg swelling, orthopnea -Recent echo (01/31/2025) EF 10% with global hypokinesis -CXR -Pleura: Small left pleural effusion unchanged 01/31/2025. No pneumothorax. Cardiomediastinal contours: Unremarkable -BNP 1604.62 -Troponin 29> 31> 32 -Received morphine, nitroglycerin, ondansetron, furosemide 40 mg IV, aspirin 325 mg -Lasix 40 mg IV daily -Hold metoprolol for now due to low blood pressure, resume when BP stable -Cardiac consult # HECTOR ON CKD due to VMN -patient complain decreased urinary volume -Serum creatinine 1.67, baseline 1.23 -eGFR 52 # Severe pulmonary hypertension -Echo on 01/31/2025 shows remarkably dilated all cardiac chamber, severe pulmonary hypertension, RVSP is 56 and is very high. # DM 2 with hyperglicemia. -HbA1c 9.9 on 01/31/2025 -Insulin sliding scale -Monitor blood sugars # Abdominal pain due to GERD -Patient came with upper abdominal pain -Patient is pantoprazole 40 mg p.o. daily # Left pleural effusion due to CHF -patient received IV Lasix 40 mg in ER Diet: Cardiac GI prophylaxis: Pantoprazole 40 mg p.o. daily DVT prophylaxis: Lovenox 30 mg SC daily Goals of care discussions. More than 35 minutes spent. code status: Full code Case discussed with Dr. Muir PCP: no established yet. Plan discussed with: Patient, patients agrees with the plan. Plan discussed with: Patient My Orders My Orders Orders - MARCELO SALAS RESIDENT Procedure Category Date Status Time Complete Blood Count LAB 02/17/25 Logged 10:13 Basic Metabolic Panel LAB 02/17/25 Logged 10:13 Prothrombin Time W/ LAB 02/17/25 Logged INR 10:13 Npo (Nothing By DIET 02/17/25 Transmitted Mouth) Diet Lunch * Cardiology Consult CONS 02/17/25 Transmitted 10:21 Date of Service: Feb 17, 2025 Billing Provider: RAFI CAMPA MD Common Visit Codes: [id number] CARE 30-74 MIN MARCELO SALAS RESIDENT Feb 17, 2025 11:54 RAFI CAMPA MD Mar 01, 2025 01:05
[2025-02-17 12:03] LABS: Hematocrit 42.6 % (41.0-53.0); Hemoglobin 14.3 g/dL (13.5-17.5); Mean Corpuscular Hemoglobin 28.9 pg (28.0-32.0); Mean Corpuscular Volume 86.3 fL (80.0-100.0); Nucleated Red Blood Cells % 0.0 %
[2025-02-17 12:05] LABS: Urine Protein, UAD Negative (Negative)
[2025-02-17 12:15] LABS: INR 1.15 (0.9-1.15); Prothrombin Time 12.0 sec (9.3-11.8)
[2025-02-17 12:18] LABS: Chloride 106 mmol/L (98-107); Potassium 4.4 mmol/L (3.5-5.1); Sodium 139 mmol/L (136-145)
[2025-02-17 12:19] LABS: Anion Gap 10 (5-15); Calcium 9.0 mg/dL (8.7-10.4); Carbon Dioxide 23 mmol/L (20-31)
[2025-02-17 12:22] LABS: Opiate Scree,Urine Neg (NEGATIVE)
[2025-02-17 12:24] LABS: BUN/Creatinine Ratio 13.5 (10.0-20.0); Blood Urea Nitrogen 21 mg/dL (9-23); Glucose 231 mg/dL (74-106)
[2025-02-17 12:24] LABS: Amphetamine Screen, Urine Neg (NEGATIVE); Barbiturate Scree,Urine Neg (NEGATIVE); Benzodiazephine Screen, Urine Neg (NEGATIVE); Cannabinoid Screen, Urine Neg (NEGATIVE); Cocaine Screen, Urine Neg (NEGATIVE); Phencyclidine Screen, Urine Neg (NEGATIVE)
[2025-02-17] MEDS: InsuLIN REG 1unit/0.01ml Soln (100units/ml) SC SCH ×2 (12:48→22:00)
[2025-02-17] MEDS: fentaNYL CITRATE 100 MCG/2 ML VL ONE (16:05)
[2025-02-17] MEDS: HEPARIN SODIUM (PORCINE) 5000 UNITS/ML 1ML VIAL ONE ×2 (16:05→16:50)
[2025-02-17] MEDS: ANGIOMAX 250 MG VIAL IV ONE (16:05)
[2025-02-17] MEDS: VERAPAMIL 2.5MG/ML INJ 2ML VIAL IV ONE (16:05)
[2025-02-17] MEDS: LIDOCAINE 2%HCL (LOCAL ANESTH.) INJ 20ML MDV ONE (16:06)
[2025-02-17] MEDS: SODIUM CHL 0.9% 0 ML ONE (16:06)
[2025-02-17] MEDS: MIDAZOLAM HCL 2MG/2ML 2ml VIAL (1mg/ml) ONE (16:06)
[2025-02-17] MEDS: IODIXANOL 320MG/ML 100ML BTL IV ONE (16:19)
[2025-02-17] MEDS: DOBUTamine 1000MCG/ML 250 ML IV ONE ×3 (17:05→17:08)
[2025-02-17] MEDS: HEPARIN DRIP/D5W 100UNITS/ML 250 ML IV SCH (17:15)
[2025-02-17] MEDS: DOBUTamine 1000MCG/ML 250 ML IV SCH ×3 (17:15→23:00)
--- NOTE | 2025-02-17 17:38 | DVHOP2 ---
Operative Report - 2 Report Details Date: 02/17/25 Preop Diagnosis: Coronary artery disease Postop Diagnosis: Coronary artery disease. Severe cardiomyopathy. Triple-vessel disease. Surgeon: Trent Crawford MD Anesthesiologist: Conscious sedation Anesthesia: Mac, Local Consent: The patient was informed of the risks and benefits of the procedure. These include but are not limited to complications of anesthesia, postoperative infection, incomplete relief of symptoms, recurrence of symptoms, damage to blood vessels, nerves and tendons, deep venous thrombosis, pulmonary embolism and possible need for repeat surgery in the future. Complications: No complications Findings: Severe coronary artery disease. Indications for Surgery: Chest pain. Cardiomyopathy. Name of Procedure Performed Left heart catheterization. Bilateral cine coronary angiography. Left ventriculography. Intra-aortic balloon pump placement. Procedure Details Procedure Details: Prior local anesthesia with 2% lidocaine to the right wrist and full informed consent obtained the patient was prepped and draped in the usual fashion followed by a six [place] sheath placed in the radial artery. This was followed by placing a multipurpose catheter into the left ventricle RCA and left main for angiographic evaluation and ventriculography. Subsequent ANTWON angiography we placed an intra-aortic balloon pump through the right femoral artery. This was placed successfully under fluoroscopic guidance with adequate functional. This was sutured with 0 Ethibond. Hemodynamics: Aortic blood pressure was 80/40. End-diastolic pressure was 25-30 mmHg. Coronary anatomy. The RCA is a large vessel. It has a 99% stenosis of the posterolateral/posterolateral branch bifurcation. The PDA has a 90% proximal ostial lesion. Severely diseased in its midportion. The posterolateral branches are severely diseased and rather small. Left main is large and normal. The circumflex is a medium caliber vessel. It has a proximal 50-60% stenosis . The 1st marginal has moderate plaquing however no critical lesions. The 2nd marginal is also free of significant disease. Distal to the 2nd marginal there was of 30-40% stenosis. Third marginal/posterolateral branch has a 95% proximal stenosis. The distal circumflex ends in the AV groove. Left anterior descending coronary artery is a medium caliber vessel. And has a 99% subtotal stenosis with minimal flow to the mid and distal segments. There was LINK grade 1 flow. Ventriculography in the MURGUIA projection shows an EF of less than 10%. There was a dilated left ventricle. After placing the balloon pump and sutured in place the patient was sent to the intensive care unit. Impression elevated left ventricular end-diastolic pressure was with markedly decreased left ventricular ejection fraction. Three-vessel coronary artery disease as mentioned. Recommendations: Patient was a very high-risk for interventional procedures. Henceforth the balloon pump was placed to alleviate symptoms and improve filling pressures. We will attempt to transfer to higher level of care. The patient becomes unstable we may need urgent angioplasty of the LAD possible Impella placement. Condition Guarded Disposition Still a Patient Date of Service: Feb 17, 2025 Billing Provider: TRENT CRAWFORD Sr., MD Cardiology Common Codes: 67722-[id number] INP/OBS CARE (High) Cardiology Procedure Codes: 78606-RUGM HEART CATH W/INTRA INJ (Intra-aortic balloon pump placement) TRENT CRAWFORD Sr., MD Feb 17, 2025 17:38
[2025-02-17] MEDS: HEPARIN DRIP/D5W 100UNITS/ML 250 ML IV ONE (17:53)
--- NOTE | 2025-02-17 18:05 | CONS ---
Pharmacy Clinical Information: HEPARIN DRIP PER RX PROTOCOL aPTT LEVEL IS NOT AVAILABLE YET PER [facility] MATTHEW BAER: NEW HEPARIN DRIP WITH NO BOLUS FOR ACS FROM DR. KENNEDY HEPARIN DRIP WAS STARTED AT 1000 UNITS/HR IN [facility] AT 1738 PER MD'S REQUEST NEXT aPTT IS ORDERED TODAY 02/17 AT 2330 GLEN Romero Feb 17, 2025 18:05
--- NOTE | 2025-02-17 18:16 | DVH ---
CHEST RADIOGRAPH Indication: s/p IABP placement Technique: Single frontal view of the chest was obtained Comparison: XY CHEST PORTABLE on DOS: 02/16/25, XY CHEST PORTABLE on DOS: 01/31/25 FINDINGS: Lines and Tubes: None Lungs: Mild interstitial prominence with hazy opacification of the right hemithorax, obscuration of t he right hemidiaphragm opacification of the right lateral lower lung zone. The left hemidiaphragm is not well evaluated. No pneumothorax. Cardiomediastinal contours: Mild cardiomegaly Bones: No acute osseous abnormality. IMPRESSION: Moderate right-sided pleural effusion mild associated atelectasis ; relatively unchanged from prior i maging. Possible trace small left-sided pleural effusion. Mild cardiomegaly with pulmonary vascular congestion.
[2025-02-17 18:37] LABS: Hematocrit 43.9 % (41.0-53.0); Hemoglobin 14.5 g/dL (13.5-17.5); Mean Corpuscular Hemoglobin 29.1 pg (28.0-32.0); Mean Corpuscular Volume 87.9 fL (80.0-100.0); Nucleated Red Blood Cells % 0.2 %
[2025-02-17] MEDS: FUROSEMIDE 20 MG/2 ML VIAL IV SCH (18:55)
[2025-02-17 19:07] LABS: INR 1.30 (0.9-1.15); Prothrombin Time 13.4 sec (9.3-11.8)
[2025-02-17 19:19] LABS: Partial Thromboplastin Time > 139.0 SEC (24.5-34.5)
[2025-02-17] MEDS: METOPROLOL TARTRATE 25 MG TAB PO SCH (21:52)
[2025-02-17] MEDS ORDERED: DOBUTamine 1000MCG/ML 250 ML IV SCH (23:00)
--- NOTE | 2025-02-17 23:57 | DVHINCON2 ---
Date Seen: Feb 17, 2025 Referring Physician MD Lorenzo Reason for Consultation CHF History of Present Illness This is a 39 year old Hong Konger-speaking male with a past medical history of unspecified dilated cardiomyopathy, severe MR/TR/PAH, liver disease, chronic kidney disease, and lmn-cthtupw-irjidxkwo diabetes mellitus who presented to the ED with complaints of shortness of breath and chest pain since yesterday. Patient reports progressive shortness of breath associated with PND, bilateral lower extremity edema, increased abdominal girth, and chest pain described as a band around his chest area radiating to the upper back. Patient does recent a recent admission to [facility] earlier this month where he was diagnosed with a cardiomyopathy with an LVEF of only 10%. There was no ischemic workup completed at that time. The patient denies any history of drug abuse or alcohol abuse. He also denies family history for cardiovascular disease. A 12 lead electrocardiogram revealed a sinus rhythm with diffuse nonspecific ST-T changes. Serial troponin levels are negative. Chest x-ray shows now significant change from 01/31. Patient was admitted to the hospital. I am asked to consult on this patient. Past Medical History Past medical history reviewed. No other significant than mentioned above. Past Surgical History Past surgical history reviewed. No other significant than mentioned above. Family History: Patient reports no known family medical history. Allergies: Coded Allergies: NO KNOWN ALLERGIES (Unverified , 01/31/25) Home Meds Active Scripts Spironolactone (Spironolactone) 25 Mg Tab, 1 TAB PO DAILY for 30 Days, #30 TAB 1 Refill Prov:GIORGIO VASQUEZ RESIDENT 02/04/25 Metoprolol Succinate (Metoprolol Succinate Er) 25 Mg Tab, 1 TAB PO DAILY for 30 Days, #30 TAB 5 Refills Prov:GIORGIO VASQUEZ RESIDENT 02/04/25 Furosemide (Furosemide) 20 Mg Tab, 1 TAB PO DAILY for 30 Days, #30 TAB 1 Refill Prov:GIORGIO VASQUEZ RESIDENT 02/04/25 Empagliflozin (Jardiance) 10 Mg Tab, 10 MG PO DAILY for 30 Days, #30 TAB Prov:GIORGIO VASQUEZ RESIDENT 02/04/25 Reported Medications Metformin Hydrochloride (Metformin Hcl) 500 Mg Tab, 1 TAB PO TID, #60 TAB 3 Refills 02/17/25 Current Medications Current Medications Medications (Trade) Dose Ordered Sig/Shanika Route PRN Reason Start Time Stop Time Status Last Admin Nitroglycerin (Ntrostat Sublingual) 0.4 mg Q5MINP PRN SL FOR CHEST PAIN 02/17/25 03:15 Morphine Sulfate 2 mg Q30M PRN IV FOR CHEST PAIN 02/17/25 03:15 Furosemide (Lasix Injection) 40 mg DAILY IV 02/17/25 10:00 02/17/25 11:25 DC Empaglifozin (Jardiance) 10 mg DAILY PO 02/17/25 10:00 02/17/25 09:49 Spironolactone (Aldactone) 25 mg DAILY PO 02/17/25 10:00 02/17/25 10:57 DC Diagnostic Test (Pha) (Accu-Chek Comfort Curve T) 1 strip ACHS 02/17/25 11:30 02/17/25 11:30 Insulin Human Regular (InsuLIN R) ACHS SC 02/17/25 11:30 02/17/25 12:48 Dextrose 50 ml UD PRN IV Blood Sugar LESS THAN 60 02/17/25 07:15 Metoprolol Tartrate (Lopressor Tablet) 12.5 mg BID PO 02/17/25 22:00 Furosemide (Lasix Injection) 20 mg BIDD IV 02/17/25 18:00 Review of Systems Constitutional: No symptom reported Ears, Nose, & Throat: No symptom reported Eyes: No symptom reported Neurological: No symptoms reported Pulmonary/Respiratory: SOB, PND Cardiovascular: Chest pain Gastrointestinal: Increased abdominal girth Genitourinary: No symptom reported Musculoskeletal: BLE edema Skin: No symptom reported Psychiatric: No symptom reported Endocrine: No symptom reported Hemotologic/Lymphatic: No symptom reported Vital Signs Vital Signs Date Time Temp Pulse Resp B/P (MAP) Pulse Ox O2 Delivery O2 Flow Rate FiO2 02/17/25 11:30 86/50 02/17/25 08:02 94 02/17/25 08:00 97.8 16 97 97.8 02/17/25 08:00 Room Air* 0 21 Physical Exam GENERAL: Alert and oriented x 3. No acute distress. EYES: PERRL, EOMI. Anicteric. HENT: Moist mucous membranes. LUNGS: Clear to auscultation bilaterally. CARDIOVASCULAR: Regular rate and rhythm. ABDOMEN: Soft, nontender and nondistended. EXTREMITIES: 1+ BLE pitting edema. NEUROLOGIC: No focal neurological deficits. SKIN: Warm, dry. Labs/Diagnostic Data Labs Test 02/17/25 12:28 02/17/25 11:33 02/17/25 10:30 02/17/25 00:30 Range/Units POC Glucose 224 H 70-106 mg/dl White Blood Count 5.1 4.4-10.8 10^3/uL Red Blood Count 4.94 4.5-5.90 10^6/uL Hemoglobin 14.3 13.5-17.5 g/dL Hematocrit 42.6 41.0-53.0 % Mean Corpuscular Volume 86.3 80.0-100.0 fL Mean Corpuscular Hemoglobin 28.9 28.0-32.0 pg Mean Corpuscular Hemoglobin Concent 33.5 32.0-36.0 g/dL Red Cell Distribution Width 15.2 H 11.8-14.3 % Platelet Count 165 140-450 10^3/uL Mean Platelet Volume 10.3 6.9-10.8 fL Neutrophils (%) (Auto) 65.1 37.0-80.0 % Lymphocytes (%) (Auto) 25.2 10.0-50.0 % Monocytes (%) (Auto) 7.7 0.0-12.0 % Eosinophils (%) (Auto) 1.6 0.0-7.0 % Basophils (%) (Auto) 0.4 0.0-2.0 % Neutrophils # (Auto) 3.3 1.6-8.6 10 ^3/uL Lymphocytes # (Auto) 1.3 0.4-5.4 10 ^3/uL Monocytes # (Auto) 0.4 0-1.3 10 ^3/uL Eosinophils # (Auto) 0.1 0-0.8 10 ^3/uL Basophils # (Auto) 0 0-0.2 10 ^3/uL Nucleated Red Blood Cells 0.0 % Prothrombin Time 12.0 H 9.3-11.8 sec Prothrombin Time INR 1.15 0.9-1.15 Sodium Level 139 136-145 mmol/L Potassium Level 4.4 3.5-5.1 mmol/L Chloride Level 106 98-107 mmol/L Carbon Dioxide Level 23 20-31 mmol/L Anion Gap 10 5-15 Blood Urea Nitrogen 21 9-23 mg/dL Creatinine 1.55 H 0.700-1.30 mg/dL Glomerular Filtration Rate Calc 57 >90 mL/min BUN/Creatinine Ratio 13.5 10.0-20.0 Serum Glucose 231 H 74-106 mg/dL Calcium Level 9.0 8.7-10.4 mg/dL Magnesium Level 2.2 1.6-2.6 mg/dL Urine Color Light-yellow Yellow Urine Clarity Clear Clear Urine pH 5.0 5.0-9.0 Urine Specific [place] 1.018 1.001-1.035 Urine Protein Negative Negative Urine Ketones Negative Negative Urine Blood Negative Negative /uL Urine Nitrite Negative Negative Urine Bilirubin Negative Negative Urine Urobilinogen Normal Negative mg/dL Urine Leukocyte Esterase Negative Negative /uL Urine RBC None seen 0 - 3 /hpf Urine Microscopic WBC 0-3 /HPF Urine Squamous Epithelial Cells Few <5 /hpf Urine Bacteria None seen None Seen /hpf Urine Hyaline Casts Few 0 - 2 /lpf Urine Mucus Few None Seen Urine Glucose 4+ H Normal mg/dL Urine Opiates Screen Neg NEGATIVE Urine Fentanyl Screen Neg NEGATIVE Urine Barbiturates Screen Neg NEGATIVE Urine Phencyclidine Screen Neg NEGATIVE Urine Amphetamines Screen Neg NEGATIVE Urine Benzodiazepines Screen Neg NEGATIVE Urine Cocaine Screen Neg NEGATIVE Urine Cannabinoids Screen Neg NEGATIVE Troponin I High Sensitivity 32 </=54 ng/L Test 02/16/25 21:47 Range/Units B-Type Natriuretic Peptide 1604.62 0-100 pg/mL Assessment Unspecified dilated cardiomyopathy with LVEF at 10%. Acute on chronic decompensated HFrEF, NYHA Class III. Ude-qdzxlwm-tcpvcbdfv diabetes mellitus. Dyslipidemia. HECTOR on CKD. Obesity. Plan/Recommendation I agree with your ongoing assessment and care of plan. Patient has been seen by Dorothy Galvin NP on my behalf, her and I discussed the plan with the patient. Scheduled for coronary angiogram and cardiac catheterization at 1st available. All risks and benefits of the procedure were discussed with the patient who agrees to proceed with intervention. All questions answered. Risks include bleeding, LUKE, CVA, coronary dissection, and even . In the meantime, continue preload and afterload reduction as tolerated. Strict I&Os, daily weight, maintain fluid restrictions. GDMT for HFrEF as renal function and BP permits, currently on low-dose BB with parameters. Initiate social worker school consultation for insurance. Additional plan as per the hospital course. Plan discussed with: Patient NYHA Physical activity limitations: Class3(Marked) ordinary Date of Service: Feb 17, 2025 Billing Provider: LANA JOSE MD Cardiology Common Codes: 41869-[id number] INP/OBS CARE (High), 73162-[id number] CARE 30-74 MIN LANA JOSE MD Feb 17, 2025 13:24
[2025-02-18] VITALS (206 sets, daily range): BP systolic 89–130; BP diastolic 45–87; PULSE 70–105; RESP 13–30; TEMP 97.6–97.9; O2SAT 94–100
[2025-02-18 03:38] LABS: Hematocrit 42.3 % (41.0-53.0); Hemoglobin 14.1 g/dL (13.5-17.5); Mean Corpuscular Hemoglobin 29.0 pg (28.0-32.0); Mean Corpuscular Volume 87.1 fL (80.0-100.0); Nucleated Red Blood Cells % 0.1 %
[2025-02-18 03:47] LABS: Alanine Aminotransferase 19 U/L (7-40); Alkaline Phosphatase 55 U/L (46-116); Anion Gap 12 (5-15); Calcium 9.8 mg/dL (8.7-10.4); Carbon Dioxide 25 mmol/L (20-31); Potassium 4.0 mmol/L (3.5-5.1); Sodium 144 mmol/L (136-145)
[2025-02-18 03:49] LABS: BUN/Creatinine Ratio 14.2 (10.0-20.0); Blood Urea Nitrogen 19 mg/dL (9-23); INR 1.18 (0.9-1.15); Magnesium 2.2 mg/dL (1.6-2.6); Partial Thromboplastin Time 37.3 SEC (24.5-34.5); Prothrombin Time 12.3 sec (9.3-11.8); Total Protein 6.4 g/dL (5.7-8.2)
[2025-02-18 03:50] LABS: Albumin 4.2 g/dL (3.2-4.8)
[2025-02-18 03:57] LABS: Bilirubin, Total 1.4 mg/dL (0.2-1.0); Chloride 107 mmol/L (98-107); Glucose 124 mg/dL (74-106)
[2025-02-18] MEDS: HEPARIN DRIP/D5W 100UNITS/ML 250 ML IV SCH ×2 (04:10→11:46)
--- NOTE | 2025-02-18 06:25 | DVH ---
CHEST RADIOGRAPH Indication: IABP PLACEMENT Technique: Single frontal view of the chest was obtained COMPARISON: XY CHEST PORTABLE on DOS: 02/17/25, XY CHEST PORTABLE on DOS: 02/16/25, XY CHEST PORTABLE o n DOS: 01/31/25 FINDINGS: Lines and Tubes: Stable appearance of IABP. Lungs: There is interval progression in opacification of the right perihilar and basilar lung zones. Slight interval increase in bilateral pleural effusions, iybeg-gcymjdg-gipb-left. No pneumothorax. Cardiomediastinal contours: Stable cardiomegaly. Bones: Unremarkable IMPRESSION: 1. Progressive right middle and lower lung zone pulmonary airspace disease and bilateral pleural effu sions, fjxtj-wchhnlq-lbdj-left. 2. Cardiomegaly. 3. IABP.
[2025-02-18] MEDS: SACUBITRIL-VALSARTAN 24mg/26mg TAB PO SCH (09:57)
[2025-02-18] MEDS: PHENYLEPHRINE INJ 80 MG in SODIUM CHL 0.9% 242 ML IV SCH ×2 (10:00→15:15)
--- NOTE | 2025-02-18 10:00 | DVHPN2 ---
Consult Progress Note Date Seen: Feb 18, 2025 Subjective Review of Systems: CVS:Normal, RESPIRATORY:Normal, NEURO:Normal Objective vital signs Vital Sign Date Time Temp Pulse Resp B/P (MAP) Pulse Ox O2 Delivery O2 Flow Rate FiO2 02/18/25 09:19 104 02/18/25 08:45 13 101/65 (77) 98 02/18/25 08:00 Nasal Cannula* 2 28 02/18/25 08:00 97.9 97.9 Total Intake and Output 02/17/25 02/17/25 02/18/25 15:00 23:00 07:00 Intake Total 134.096 ml 495.964 ml Output Total 2315 ml 1175 ml Balance -2180.904 ml -679.036 ml medications Current Medications Medications Dose Ordered Sig/Shanika Route Start Time Stop Time Status Last Admin Dose Admin Nitroglycerin 0.4 mg Q5MINP PRN SL 02/17/25 03:15 Morphine Sulfate 2 mg Q30M PRN IV 02/17/25 03:15 Empaglifozin 10 mg DAILY PO 02/17/25 10:00 02/17/25 09:49 10 MG Furosemide 20 mg BIDD IV 02/17/25 18:00 02/18/25 06:22 20 MG Diagnostic Test (Pha) 1 strip ACHS 02/17/25 22:00 02/18/25 06:20 1 STRIP Insulin Human Regular ACHS SC 02/17/25 22:00 Dextrose 50 ml UD PRN IV 02/17/25 17:30 Insulin Glargine 10 units DAILY@1000 SC 02/18/25 10:00 Dobutamine HCl/ Dextrose 250 ml @ 15.228 mls/ hr [id number] IV 02/17/25 23:00 02/18/25 02:10 30.456 MLS/HR Heparin Sodium/ Dextrose 250 ml @ 9 mls/hr Q24H IV 02/18/25 04:15 02/18/25 04:10 9 MLS/HR Sacubitril/ Valsartan 0.5 tab BID PO 02/18/25 10:00 Examination: LUNGS:Normal, CVS:Normal (Sinus tachycardia low 100s bpm, on dobutamine and heparin drip), MSK:Abnormal (Right groin area intact, no signs of bleed, palpable pedal pulse), NEURO:Normal laboratory and microbiology Laboratory Tests 02/18/25 02:33 Test 02/18/25 02:33 Range/Units Serum Glucose 124 #H 74-106 mg/dL Problem List/Assessment/Plan Problem List/Assessment/Plan Cardiogenic shock with intra-aortic balloon pump placement Severe multivessel coronary artery disease/dilated cardiomyopathy with LVEF at 10% Acute on chronic decompensated HFrEF, NYHA Class III Rbb-fxiptid-ityevlggv diabetes mellitus Dyslipidemia EHCTOR on CKD Obesity Plan/Recommendation (Dr. Crawford) The patient with severe multivessel coronary artery disease/dilated cardiomyopathy with LVEF at 10% is status post intra-aortic balloon pump placement given very high-risk for interventional procedures. Plan is to attempt to transfer to higher level of care for high-risk PCI with surgical back up. In the event of clinical deterioration/instability, the patient will require urgent in house Impella device assisted angioplasty of the LAD. In the meantime, keep augmented pressure on IABP above 110, continue heparin and dobutamine drips. Initiate quac concentration Neosynephrine to maintain a MAP 65 or above as needed. Continue ARNI and SGLT2i. Initiate satin therapy. Strict I&Os, daily weight, and fluid restrictions. Monitor ECG changes closely and notify. Continue urgent health and social care teacher consultation for insurance. Further recommendations per clinical course. Thank you for allowing us to participate in this patient's care. Please call if you have any questions or concerns. Critical care time: 45 min. This medical document was created using an electronic medical record system with voice recognition software and computerized dictation system. Although this document has been carefully reviewed, there might still be some phonetic and typographical errors. Occasional wrong-word or ``sound-alike substitutions may have occurred due to the inherent limitations of voice recognition software. These areas are purely typographical due to imperfections of the software programs and do not reflect any compromise in the patient's medical care. Please read the chart carefully and recognize, using context, where these substitutions have occurred. Plan discussed with: Patient, Other Dietary Evaluation Review Comments: 1) [facility] 2gm Na diet 2) Refer Cartographic Designer on DC Expected Outcomes/Goals: To meet >75% estimated needs Fu 3-5 days Date of Service: Feb 18, 2025 Billing Provider: GEORGE BLUNT Cardiology Common Codes: 25014-[id number] CARE 30-74 MIN GEORGE BLUNT [facility] Feb 18, 2025 10:00
[2025-02-18] MEDS: INSULIN LANTUS (GLARGINE) 1 /0.01ml (100units/ml) SC SCH (10:02)
[2025-02-18] MEDS: cefTRIAXone 1GM/50ML D5W 50 ML IV ONE ×2 (11:21)
[2025-02-18 11:26] LABS: INR 1.16 (0.9-1.15); Partial Thromboplastin Time 40.1 SEC (24.5-34.5); Prothrombin Time 12.1 sec (9.3-11.8)
--- NOTE | 2025-02-18 11:28 | DVHPN2 ---
Assessment/Plan Assessment/Plan icu note 39 M with end stage heart failure admitted for chest pain, s/p LHC with severe triple vessel req IABP for MCS. physical exam aox4 PERRLA MMM S1 S2 RRR systolic murmur clear breath sounds abdomen soft, bruit herd IABP access r fem, no sig swelling noted equal pulse b/l popliteal and dp trace LE edema R>L labs ekg imaging reviewed assessment and plan cardiogenic shock req mechanical circulatory support acute on chronic systolic heart failure HFrEF 10% s/p LHC w/ triple vessel s/p IABP NIDDM HECTOR on CKD Obesity c/w IABP c/w dobutamine, watch ectopy c/w heparin drip HLOC transfer for surgical backup q8 labs q4 dp doppler Lasix c/w gdmt diet cardiac dvt ppx heparin drip gi ppx protonix full code condition critical prognosis poor critical care time 90 minutes Plan discussed with: Patient Date of Service: Feb 18, 2025 Billing Provider: ERIC RIVERO MD Common Visit Codes: [id number] CARE 30-74 MIN, [id number] CARE-EACH +30MIN ERIC RIVERO MD Feb 18, 2025 11:28
--- NOTE | 2025-02-18 11:45 | CONS ---
Pharmacy Clinical Information: INCREASE HEPARIN DRIP RATE TO 1100 UNITS/HR PER APTT OF 40.1 NEXT APTT DRAW SCHEDULED FOR 1800 PER RX PROTOCOL MATTHEW TRINH CONFIRMED AND READBACK Diana Lambert PHARMACIST Feb 18, 2025 11:45
[2025-02-18 12:20] LABS: Hematocrit 41.7 % (41.0-53.0); Hemoglobin 14.1 g/dL (13.5-17.5); Mean Corpuscular Hemoglobin 29.2 pg (28.0-32.0); Mean Corpuscular Volume 86.2 fL (80.0-100.0); Nucleated Red Blood Cells % 0.0 %
[2025-02-18 12:31] LABS: Chloride 105 mmol/L (98-107); Potassium 3.7 mmol/L (3.5-5.1); Sodium 139 mmol/L (136-145)
[2025-02-18 12:32] LABS: Anion Gap 11 (5-15); Calcium 9.5 mg/dL (8.7-10.4); Carbon Dioxide 23 mmol/L (20-31)
[2025-02-18 12:37] LABS: BUN/Creatinine Ratio 12.2 (10.0-20.0); Blood Urea Nitrogen 14 mg/dL (9-23); Glucose 181 mg/dL (74-106)
[2025-02-18] MEDS: POLYETHYLENE GLYCOL 17 GM PWDR PO ONE (15:44)
[2025-02-18 18:38] LABS: Hematocrit 42.2 % (41.0-53.0); Hemoglobin 14.3 g/dL (13.5-17.5); Mean Corpuscular Hemoglobin 29.2 pg (28.0-32.0); Mean Corpuscular Volume 86.0 fL (80.0-100.0); Nucleated Red Blood Cells % 0.0 %
[2025-02-18 18:46] LABS: Chloride 104 mmol/L (98-107); Potassium 3.5 mmol/L (3.5-5.1); Sodium 138 mmol/L (136-145)
[2025-02-18 18:47] LABS: Anion Gap 9 (5-15); Calcium 9.7 mg/dL (8.7-10.4); Carbon Dioxide 25 mmol/L (20-31)
[2025-02-18 18:52] LABS: BUN/Creatinine Ratio 12.5 (10.0-20.0); Blood Urea Nitrogen 13 mg/dL (9-23); Glucose 108 mg/dL (74-106)
[2025-02-18 18:56] LABS: INR 1.19 (0.9-1.15); Partial Thromboplastin Time 52.1 SEC (24.5-34.5); Prothrombin Time 12.4 sec (9.3-11.8)
[2025-02-18] MEDS: ACETAMINOPHEN 325 MG TAB PO PRN (21:10)
[2025-02-18] MEDS: SENNA 8.6 MG TAB PO SCH (21:12)
[2025-02-18] MEDS: ATORVASTATIN 20 MG TAB PO SCH (21:13)
--- NOTE | 2025-02-18 23:51 | DVHPN2 ---
Consult Progress Note Date Seen: Feb 18, 2025 Subjective Review of Systems: CVS:Normal, RESPIRATORY:Normal, NEURO:Normal Other Systems: Patient was seen and evaluated in follow up in the ICU. Patient is status post [facility] with severe triple vessel requiring IABP for MCS. Patient complains of generalized discomfort. Patient is on 2 LPM NC. Chest x-ray shows progressive right middle and lower lung zone pulmonary airspace disease and bilateral pleural effusions, qbvca-zhukche-nqes-left. Cardiomegaly. IABP. Objective vital signs Vital Sign Date Time Temp Pulse Resp B/P (MAP) Pulse Ox O2 Delivery O2 Flow Rate FiO2 02/18/25 12:15 94 22 101/56 (71) 97 02/18/25 12:13 Nasal Cannula* 2 28 02/18/25 08:00 97.9 97.9 Total Intake and Output 02/17/25 02/17/25 02/18/25 15:00 23:00 07:00 Intake Total 134.096 ml 495.964 ml Output Total 2315 ml 1175 ml Balance -2180.904 ml -679.036 ml medications Current Medications Medications Dose Ordered Sig/Shanika Route Start Time Stop Time Status Last Admin Dose Admin Nitroglycerin 0.4 mg Q5MINP PRN SL 02/17/25 03:15 Morphine Sulfate 2 mg Q30M PRN IV 02/17/25 03:15 Empaglifozin 10 mg DAILY PO 02/17/25 10:00 02/18/25 09:56 10 MG Furosemide 20 mg BIDD IV 02/17/25 18:00 02/18/25 06:22 20 MG Diagnostic Test (Pha) 1 strip ACHS 02/17/25 22:00 02/18/25 12:05 1 STRIP Insulin Human Regular ACHS SC 02/17/25 22:00 02/18/25 12:09 3 UNITS Dextrose 50 ml UD PRN IV 02/17/25 17:30 Insulin Glargine 10 units DAILY@1000 SC 02/18/25 10:00 02/18/25 10:02 10 UNITS Dobutamine HCl/ Dextrose 250 ml @ 15.228 mls/ hr [id number] IV 02/17/25 23:00 02/18/25 02:10 30.456 MLS/HR Sacubitril/ Valsartan 0.5 tab BID PO 02/18/25 10:00 02/18/25 09:57 0.5 TAB Atorvastatin Calcium 80 mg HS PO 02/18/25 22:00 Phenylephrine HCl 80 mg/Sodium Chloride 250 ml @ 7.5 mls/hr Q24H IV 02/18/25 10:00 Acetaminophen 325 mg Q4HP PRN PO 02/18/25 10:00 Ceftriaxone Sodium 50 ml @ 100 mls/hr DAILY@09 IV 02/19/25 09:00 Heparin Sodium/ Dextrose 250 ml @ 11 mls/hr [id number] IV 02/18/25 11:45 02/18/25 11:46 11 MLS/HR Examination: LUNGS:Normal, CVS:Normal, MSK:Abnormal, NEURO:Normal laboratory and microbiology Laboratory Tests 02/18/25 12:08 Test 02/18/25 12:08 Range/Units Serum Glucose Pending Problem List/Assessment/Plan Problem List/Assessment/Plan Problem list Severe multivessel coronary artery disease/dilated cardiomyopathy with LVEF at 10%. Acute on chronic decompensated HFrEF, NYHA Class III. Wzl-bvuwsvd-omskruoet diabetes mellitus. Dyslipidemia. HECTOR on CKD. Obesity. Plan/Recommendation Continued all current supportive medical care. Patient has been seen by Dorothy Galvin NP on my behalf, her and I discussed the plan with the patient. The patient with severe multivessel coronary artery disease/dilated cardiomyopathy with LVEF at 10% is status post intra-aortic balloon pump placement given very high-risk for interventional procedures. Plan is to attempt to transfer to higher level of care for high-risk PCI with surgical back up. In the event of clinical deterioration/instability, the patient will require urgent in house Impella device assisted angioplasty of the LAD. In the meantime, keep augmented pressure on IABP above 110, continue heparin and dobutamine drips. Initiate quac concentration Neosynephrine to maintain a MAP 65 or above as needed. Continue ARNI and SGLT2i. Initiate satin therapy. Strict I&Os, daily weight, and fluid restrictions. Monitor ECG changes closely and notify. Continue urgent community mental health social worker consultation for insurance. Further recommendations per clinical course. Additional plan as per the hospital course. Plan discussed with: Patient Dietary Evaluation Review Comments: 1) Advance to [facility] 60gm + 2gm Na diet 2) Refer Pharmaceutical Officer on DC Expected Outcomes/Goals: To meet >75% estimated needs Fu 3-5 days Date of Service: Feb 18, 2025 Billing Provider: LANA JOSE MD Cardiology Common Codes: 33711-[facility] LANA JOSE MD Feb 18, 2025 12:33
[2025-02-19] VITALS (199 sets, daily range): BP systolic 74–146; BP diastolic 36–90; PULSE 61–128; RESP 13–32; TEMP 97.4–98.2; O2SAT 94–100
[2025-02-19 00:42] LABS: Hematocrit 42.0 % (41.0-53.0); Hemoglobin 14.4 g/dL (13.5-17.5); Mean Corpuscular Hemoglobin 29.2 pg (28.0-32.0); Mean Corpuscular Volume 85.5 fL (80.0-100.0); Nucleated Red Blood Cells % 0.0 %
[2025-02-19 00:50] LABS: Chloride 103 mmol/L (98-107); Sodium 140 mmol/L (136-145)
[2025-02-19 00:51] LABS: Anion Gap 11 (5-15); Carbon Dioxide 26 mmol/L (20-31)
[2025-02-19 00:52] LABS: Calcium 9.0 mg/dL (8.7-10.4)
[2025-02-19 00:53] LABS: Potassium 3.3 mmol/L (3.5-5.1)
[2025-02-19 00:55] LABS: INR 1.2 (0.9-1.15); Partial Thromboplastin Time 55.2 SEC (24.5-34.5); Prothrombin Time 12.5 sec (9.3-11.8)
[2025-02-19 00:57] LABS: BUN/Creatinine Ratio 10.0 (10.0-20.0); Blood Urea Nitrogen 10 mg/dL (9-23); Glucose 98 mg/dL (74-106)
[2025-02-19] MEDS: POTASSIUM CHL 20MEQ/100ML 100 ML IV ONE (02:20)
--- NOTE | 2025-02-19 05:52 | DVH ---
EXAM: XY CHEST PORTABLE Indication: balloon pump Technique: Single frontal view of the chest was obtained Comparison: XY CHEST XRAY 1 VIEW on DOS: 02/18/25, XY CHEST PORTABLE on DOS: 02/17/25, XY CHEST PORTABL E on DOS: 02/16/25, XY CHEST PORTABLE on DOS: 01/31/25, XY CHEST XRAY 1 VIEW on DOS: 02/18/25 FINDINGS: Lines and Tubes: Stable appearance of IABP. Lungs: There is stable opacification of the right perihilar and basilar lung zones. Stable small bila teral pleural effusions, right greater than left. No pneumothorax. Cardiomediastinal contours: Stable cardiomegaly. Bones: Unremarkable IMPRESSION: No significant change compared to prior exam.
[2025-02-19 07:06] LABS: INR 1.19 (0.9-1.15); Partial Thromboplastin Time 59.6 SEC (24.5-34.5); Prothrombin Time 12.4 sec (9.3-11.8)
[2025-02-19 07:07] LABS: Hematocrit 45.5 % (41.0-53.0); Hemoglobin 15.5 g/dL (13.5-17.5); Mean Corpuscular Hemoglobin 29.3 pg (28.0-32.0); Mean Corpuscular Volume 85.8 fL (80.0-100.0); Nucleated Red Blood Cells % 0.0 %
[2025-02-19 07:10] LABS: Alanine Aminotransferase 14 U/L (7-40); Alkaline Phosphatase 63 U/L (46-116); Anion Gap 11 (5-15); BUN/Creatinine Ratio 9.2 (10.0-20.0); Calcium 9.9 mg/dL (8.7-10.4); Carbon Dioxide 28 mmol/L (20-31); Chloride 102 mmol/L (98-107); Glucose 92 mg/dL (74-106); Magnesium 2.0 mg/dL (1.6-2.6); Potassium 4.1 mmol/L (3.5-5.1); Sodium 141 mmol/L (136-145); Total Protein 6.9 g/dL (5.7-8.2)
[2025-02-19 07:11] LABS: Albumin 4.4 g/dL (3.2-4.8)
[2025-02-19 07:34] LABS: Bilirubin, Total 2.4 mg/dL (0.2-1.0); Blood Urea Nitrogen 9 mg/dL (9-23)
[2025-02-19] MEDS: cefTRIAXone 1GM/50ML D5W 50 ML IV SCH (09:32)
--- NOTE | 2025-02-19 10:07 | DVHPN2 ---
Consult Progress Note Date Seen: Feb 19, 2025 Subjective Review of Systems: CVS:Normal, RESPIRATORY:Normal, NEURO:Normal Other Systems: Mild ectopi overnight. The patient denies any cardiac symptoms Objective vital signs Vital Sign Date Time Temp Pulse Resp B/P (MAP) Pulse Ox O2 Delivery O2 Flow Rate FiO2 02/19/25 08:35 86 02/19/25 08:11 18 99 Nasal Cannula* 2 28 02/19/25 08:00 115/55 (75) 100/70 (80) 02/19/25 06:30 97.9 97.9 Total Intake and Output 02/18/25 02/18/25 02/19/25 15:00 23:00 07:00 Intake Total 485.320 ml 330.493 ml 439.791 ml Output Total 1835 ml 2080 ml 800 ml Balance -1349.680 ml -1749.507 ml -360.209 ml medications Current Medications Medications Dose Ordered Sig/Shanika Route Start Time Stop Time Status Last Admin Dose Admin Nitroglycerin 0.4 mg Q5MINP PRN SL 02/17/25 03:15 Morphine Sulfate 2 mg Q30M PRN IV 02/17/25 03:15 Empaglifozin 10 mg DAILY PO 02/17/25 10:00 02/18/25 09:56 10 MG Furosemide 20 mg BIDD IV 02/17/25 18:00 02/19/25 05:31 20 MG Diagnostic Test (Pha) 1 strip ACHS 02/17/25 22:00 02/19/25 06:46 1 STRIP Insulin Human Regular ACHS SC 02/17/25 22:00 02/18/25 21:12 2 UNITS Dextrose 50 ml UD PRN IV 02/17/25 17:30 Insulin Glargine 10 units DAILY@1000 SC 02/18/25 10:00 02/18/25 10:02 10 UNITS Dobutamine HCl/ Dextrose 250 ml @ 15.228 mls/ hr [id number] IV 02/17/25 23:00 02/19/25 05:30 25.38 MLS/HR Sacubitril/ Valsartan 0.5 tab BID PO 02/18/25 10:00 02/18/25 21:12 0.5 TAB Atorvastatin Calcium 80 mg HS PO 02/18/25 22:00 02/18/25 21:13 80 MG Acetaminophen 325 mg Q4HP PRN PO 02/18/25 10:00 02/18/25 21:10 325 MG Ceftriaxone Sodium 50 ml @ 100 mls/hr DAILY@09 IV 02/19/25 09:00 02/19/25 09:32 100 MLS/HR Heparin Sodium/ Dextrose 250 ml @ 11 mls/hr [id number] IV 02/18/25 11:45 02/18/25 21:11 11 MLS/HR Sennosides 8.6 mg HS PO 02/18/25 22:00 02/18/25 21:12 8.6 MG Phenylephrine HCl 80 mg/Sodium Chloride 250 ml @ 1.875 mls/ hr Q24H IV 02/18/25 15:15 02/18/25 15:15 1.875 MLS/HR Examination: LUNGS:Abnormal (Bilateral crackles R>L), CVS:Normal, MSK:Abnormal (RLE pedal pulse 2+. Right groin area with intact catheterer in place), NEURO:Normal laboratory and microbiology Laboratory Tests 02/19/25 06:01 Test 02/19/25 06:01 Range/Units Serum Glucose 92 74-106 mg/dL Problem List/Assessment/Plan Problem List/Assessment/Plan Cardiogenic shock with intra-aortic balloon pump placement Severe multivessel coronary artery disease/dilated cardiomyopathy with LVEF at 10% Acute on chronic decompensated HFrEF, NYHA Class III Opl-iadxcub-cqouvnonc diabetes mellitus Dyslipidemia HECTOR on CKD Obesity Plan/Recommendation (Dr. Crawford) The patient with severe multivessel coronary artery disease/dilated cardiomyopathy with LVEF at 10% is status post intra-aortic balloon pump placement given very high-risk for interventional procedures. Plan is to attempt to transfer to higher level of care for high-risk PCI with surgical back up. In the event of clinical deterioration/instability, the patient will require urgent in house Impella device assisted angioplasty of the LAD. In the meantime, keep augmented pressure on IABP above 100s, continue heparin and dobutamine drips. Continue quac concentration Neosynephrine to maintain a MAP 65 or above. Continue ARNI (with optimal BPs) and SGLT2i. Continue statin therapy. Strict I&Os, daily weight, and fluid restrictions. Monitor ECG changes closely and notify. Continue social insurance specialist consultation for insurance. Continue ABX prophylaxis. Further recommendations per clinical course. Thank you for allowing us to participate in this patient's care. Please call if you have any questions or concerns. Critical care time: 35 min. This medical document was created using an electronic medical record system with voice recognition software and computerized dictation system. Although this document has been carefully reviewed, there might still be some phonetic and typographical errors. Occasional wrong-word or ``sound-alike substitutions may have occurred due to the inherent limitations of voice recognition software. These areas are purely typographical due to imperfections of the software programs and do not reflect any compromise in the patient's medical care. Please read the chart carefully and recognize, using context, where these substitutions have occurred. Plan discussed with: Patient, Other Dietary Evaluation Review Comments: 1) Advance to [facility] 60gm + 2gm Na diet 2) Refer [employer] Operator on DC Expected Outcomes/Goals: To meet >75% estimated needs Fu 3-5 days Date of Service: Feb 19, 2025 Billing Provider: GEORGE BLUNT Cardiology Common Codes: [id number] CARE 30-74 MIN GEORGE BLUNT Feb 19, 2025 10:06
[2025-02-19 12:27] LABS: Hematocrit 44.4 % (41.0-53.0); Hemoglobin 15.1 g/dL (13.5-17.5); Mean Corpuscular Hemoglobin 29.0 pg (28.0-32.0); Mean Corpuscular Volume 85.6 fL (80.0-100.0); Nucleated Red Blood Cells % 0.0 %
[2025-02-19 12:34] LABS: Chloride 101 mmol/L (98-107); Potassium 3.9 mmol/L (3.5-5.1); Sodium 137 mmol/L (136-145)
[2025-02-19 12:35] LABS: Anion Gap 7 (5-15); Calcium 9.7 mg/dL (8.7-10.4); Carbon Dioxide 29 mmol/L (20-31)
[2025-02-19 12:40] LABS: BUN/Creatinine Ratio 10.2 (10.0-20.0); Blood Urea Nitrogen 10 mg/dL (9-23); Glucose 183 mg/dL (74-106); INR 1.18 (0.9-1.15); Partial Thromboplastin Time 53.8 SEC (24.5-34.5); Prothrombin Time 12.3 sec (9.3-11.8)
--- NOTE | 2025-02-19 14:00 | DVHPN2 ---
Assessment/Plan Assessment/Plan icu note 39 M with end stage heart failure admitted for chest pain, s/p LHC with severe triple vessel req IABP for MCS. seen today. req pressors and inotrope. on MCS, dp pulse equal. PICC consult for CV access physical exam aox4 PERRLA MMM S1 S2 RRR systolic murmur clear breath sounds abdomen soft, bruit herd IABP access r fem, no sig swelling noted equal pulse b/l popliteal and dp trace LE edema R>L labs ekg imaging reviewed assessment and plan cardiogenic shock req mechanical circulatory support acute on chronic systolic heart failure HFrEF 10% s/p LHC w/ triple vessel s/p IABP NIDDM HECTOR on CKD Obesity c/w IABP c/w dobutamine, watch ectopy c/w heparin drip HLOC transfer for surgical backup q8 labs q4 dp doppler Lasix c/w gdmt, hold entresto diet cardiac dvt ppx heparin drip gi ppx protonix full code condition critical prognosis poor critical care time 55 minutes Plan discussed with: Patient My Orders Orders - ERIC RIVERO MD Procedure Category Date Status Time Senna Pod Tablet PHA 02/18/25 In Process (Senokot Tablet) 22:00 Chest Portable XY 02/19/25 Resulted 01:46 Cardiac DIET 02/19/25 Transmitted Diet-2gna,Lofat,Lochol Lunch Date of Service: Feb 19, 2025 Billing Provider: ERIC RIVERO MD Common Visit Codes: [id number] CARE 30-74 MIN ERIC RIVERO MD Feb 19, 2025 14:00
[2025-02-19] MEDS: LIDOCAINE 1% (LOCAL ANESTH.) PF 5ml SDV ID ONE (16:15)
[2025-02-19] MEDS: DOBUTamine 1000MCG/ML 250 ML IV SCH (16:50)
[2025-02-19] MEDS: PHENYLEPHRINE INJ 80 MG in SODIUM CHL 0.9% 242 ML IV SCH (16:52)
[2025-02-19 18:49] LABS: Hematocrit 44.6 % (41.0-53.0); Hemoglobin 15.3 g/dL (13.5-17.5); Mean Corpuscular Hemoglobin 29.1 pg (28.0-32.0); Mean Corpuscular Volume 84.5 fL (80.0-100.0); Nucleated Red Blood Cells % 0.1 %
[2025-02-19 18:57] LABS: Chloride 102 mmol/L (98-107); Potassium 3.5 mmol/L (3.5-5.1); Sodium 137 mmol/L (136-145)
[2025-02-19 18:58] LABS: Anion Gap 7 (5-15); Calcium 9.7 mg/dL (8.7-10.4); Carbon Dioxide 28 mmol/L (20-31)
[2025-02-19 19:03] LABS: BUN/Creatinine Ratio 11.2 (10.0-20.0); Blood Urea Nitrogen 10 mg/dL (9-23)
[2025-02-19 19:04] LABS: Magnesium 2.1 mg/dL (1.6-2.6)
[2025-02-19 19:09] LABS: Glucose 133 mg/dL (74-106)
[2025-02-19] MEDS: HEPARIN DRIP/D5W 100UNITS/ML 250 ML IV ONE (19:47)
[2025-02-19] MEDS: SODIUM CHLOR 0.9% PF (SALINE LOCK) 10ML VIAL/SYR IV SCH (21:28)
--- NOTE | 2025-02-19 22:36 | DVHPN2 ---
Consult Progress Note Date Seen: Feb 19, 2025 Subjective Review of Systems: CVS:Normal, RESPIRATORY:Normal, NEURO:Normal Other Systems: Patient was seen and evaluated in follow up in the ICU. Overnight, the patient was noted to have mild ectopy on the technical illustrator. Patient is asymptomatic. Patient denies any cardiac symptoms. Patient pending transfer to [facility] for HLOC transfer. Objective vital signs Vital Sign Date Time Temp Pulse Resp B/P (MAP) Pulse Ox O2 Delivery O2 Flow Rate FiO2 02/19/25 14:20 96 02/19/25 14:12 17 98 Nasal Cannula* 2 28 02/19/25 11:15 97/49 (65) 02/19/25 08:15 97.8 97.8 Total Intake and Output 02/18/25 02/18/25 02/19/25 15:00 23:00 07:00 Intake Total 485.320 ml 330.493 ml 439.791 ml Output Total 1835 ml 2080 ml 800 ml Balance -1349.680 ml -1749.507 ml -360.209 ml medications Current Medications Medications Dose Ordered Sig/Shanika Route Start Time Stop Time Status Last Admin Dose Admin Nitroglycerin 0.4 mg Q5MINP PRN SL 02/17/25 03:15 Morphine Sulfate 2 mg Q30M PRN IV 02/17/25 03:15 Empaglifozin 10 mg DAILY PO 02/17/25 10:00 02/19/25 10:14 10 MG Furosemide 20 mg BIDD IV 02/17/25 18:00 02/19/25 05:31 20 MG Diagnostic Test (Pha) 1 strip ACHS 02/17/25 22:00 02/19/25 11:57 1 STRIP Insulin Human Regular ACHS SC 02/17/25 22:00 02/19/25 11:58 3 UNITS Dextrose 50 ml UD PRN IV 02/17/25 17:30 Insulin Glargine 10 units DAILY@1000 SC 02/18/25 10:00 02/19/25 10:24 10 UNITS Dobutamine HCl/ Dextrose 250 ml @ 15.228 mls/ hr [id number] IV 02/17/25 23:00 02/19/25 05:30 25.38 MLS/HR Atorvastatin Calcium 80 mg HS PO 02/18/25 22:00 02/18/25 21:13 80 MG Acetaminophen 325 mg Q4HP PRN PO 02/18/25 10:00 02/18/25 21:10 325 MG Ceftriaxone Sodium 50 ml @ 100 mls/hr DAILY@09 IV 02/19/25 09:00 02/19/25 09:32 100 MLS/HR Heparin Sodium/ Dextrose 250 ml @ 11 mls/hr [id number] IV 02/18/25 11:45 02/18/25 21:11 11 MLS/HR Sennosides 8.6 mg HS PO 02/18/25 22:00 02/18/25 21:12 8.6 MG Phenylephrine HCl 80 mg/Sodium Chloride 250 ml @ 1.875 mls/ hr Q24H IV 02/18/25 15:15 02/18/25 15:15 1.875 MLS/HR Examination: LUNGS:Abnormal, CVS:Normal, MSK:Abnormal, NEURO:Normal laboratory and microbiology Laboratory Tests 02/19/25 12:08 Test 02/19/25 12:08 Range/Units Serum Glucose 183 H 74-106 mg/dL Problem List/Assessment/Plan Problem List/Assessment/Plan Problem list Cardiogenic shock with intra-aortic balloon pump placement. Severe multivessel coronary artery disease/dilated cardiomyopathy with LVEF at 10%. Acute on chronic decompensated HFrEF, NYHA Class III. Ref-eivzodx-hwixukrla diabetes mellitus. Dyslipidemia.. HECTOR on CKD Obesity. Plan/Recommendation Continued all current supportive medical care. Patient has been seen by Dorothy Galvin NP on my behalf, her and I discussed the plan with the patient. The patient with severe multivessel coronary artery disease/dilated cardiomyopathy with LVEF at 10% is status post intra-aortic balloon pump placement given very high-risk for interventional procedures. Plan is to attempt to transfer to higher level of care for high-risk PCI with surgical back up. In the event of clinical deterioration/instability, the patient will require urgent in house Impella device assisted angioplasty of the LAD. In the meantime, keep augmented pressure on IABP above 100s, continue heparin and dobutamine drips. Continue quac concentration Neosynephrine to maintain a MAP 65 or above. Continue ARNI (with optimal BPs) and SGLT2i. Continue statin therapy. Strict I&Os, daily weight, and fluid restrictions. Monitor ECG changes closely and notify. Continue marriage and family social worker consultation for insurance. Continue ABX prophylaxis. Further recommendations per clinical course. Additional plan as per the hospital course. Plan discussed with: Patient Dietary Evaluation Review Comments: 1) Advance to [facility] 60gm + 2gm Na diet 2) Refer [employer]oper on DC Expected Outcomes/Goals: To meet >75% estimated needs Fu 3-5 days Date of Service: Feb 19, 2025 Billing Provider: LANA JOSE MD Cardiology Common Codes: [id number] [facility] CARE LANA JOSE MD Feb 19, 2025 14:54
[2025-02-20] VITALS (176 sets, daily range): BP systolic 97–136; BP diastolic 51–85; PULSE 69–121; RESP 11–26; TEMP 97.6–99.3; O2SAT 95–100
[2025-02-20 00:33] LABS: Hematocrit 43.5 % (41.0-53.0); Hemoglobin 14.8 g/dL (13.5-17.5); Mean Corpuscular Hemoglobin 28.8 pg (28.0-32.0); Mean Corpuscular Volume 84.6 fL (80.0-100.0); Nucleated Red Blood Cells % 0.0 %
[2025-02-20 00:40] LABS: Chloride 103 mmol/L (98-107); Potassium 3.5 mmol/L (3.5-5.1); Sodium 140 mmol/L (136-145)
[2025-02-20 00:41] LABS: Anion Gap 9 (5-15); Calcium 8.8 mg/dL (8.7-10.4); Carbon Dioxide 28 mmol/L (20-31)
[2025-02-20 00:46] LABS: BUN/Creatinine Ratio 11.5 (10.0-20.0); Blood Urea Nitrogen 10 mg/dL (9-23); Glucose 95 mg/dL (74-106)
--- NOTE | 2025-02-20 05:35 | DVH ---
CHEST RADIOGRAPH Indication: patient on balloon pump Technique: Single frontal view of the chest was obtained COMPARISON: XY CHEST PORTABLE on DOS: 02/19/25, XY CHEST XRAY 1 VIEW on DOS: 02/18/25, XY CHEST PORTABL E on DOS: 02/17/25, XY CHEST PORTABLE on DOS: 02/16/25, XY CHEST PORTABLE on DOS: 01/31/25 FINDINGS: Lines and Tubes: Left PICC in satisfactory position. Intra-aortic balloon pump may be slightly high i n position. Lungs: Congestion Pleura: No effusion. No pneumothorax. Cardiomediastinal contours: Cardiomegaly. Bones: Unremarkable IMPRESSION: Intra-aortic balloon pump may be slightly high in position. Could consider retraction by approximatel y 2 cm. Clinical correlation advised.
[2025-02-20 05:43] LABS: Hematocrit 43.8 % (41.0-53.0); Hemoglobin 14.9 g/dL (13.5-17.5); Mean Corpuscular Hemoglobin 29.1 pg (28.0-32.0); Mean Corpuscular Volume 85.9 fL (80.0-100.0); Nucleated Red Blood Cells % 0.0 %
[2025-02-20 05:49] LABS: Chloride 104 mmol/L (98-107); Potassium 3.6 mmol/L (3.5-5.1); Sodium 140 mmol/L (136-145)
[2025-02-20 05:50] LABS: Anion Gap 9 (5-15); Calcium 8.7 mg/dL (8.7-10.4); Carbon Dioxide 27 mmol/L (20-31)
[2025-02-20 05:55] LABS: BUN/Creatinine Ratio 9.9 (10.0-20.0); Glucose 89 mg/dL (74-106)
[2025-02-20 06:02] LABS: INR 1.14 (0.9-1.15); Partial Thromboplastin Time 64.0 SEC (24.5-34.5); Prothrombin Time 11.9 sec (9.3-11.8)
[2025-02-20 06:07] LABS: Blood Urea Nitrogen 8 mg/dL (9-23)
--- NOTE | 2025-02-20 09:34 | DVHPN2 ---
Consult Progress Note Date Seen: Feb 20, 2025 Subjective Review of Systems: CVS:Normal, RESPIRATORY:Normal, NEURO:Normal Objective vital signs Vital Sign Date Time Temp Pulse Resp B/P (MAP) Pulse Ox O2 Delivery O2 Flow Rate FiO2 02/20/25 08:20 93 02/20/25 08:17 22 100 Nasal Cannula* 2 28 02/20/25 07:15 126/72 (90) 02/20/25 04:15 98.1 98.1 Total Intake and Output 02/19/25 02/19/25 02/20/25 15:00 23:00 07:00 Intake Total 424.638 ml 841.389 ml 268.285 ml Output Total 1185 ml 1895 ml 935 ml Balance -760.362 ml -1053.611 ml -666.715 ml medications Current Medications Medications Dose Ordered Sig/Shanika Route Start Time Stop Time Status Last Admin Dose Admin Nitroglycerin 0.4 mg Q5MINP PRN SL 02/17/25 03:15 Morphine Sulfate 2 mg Q30M PRN IV 02/17/25 03:15 Empaglifozin 10 mg DAILY PO 02/17/25 10:00 02/19/25 10:14 10 MG Furosemide 20 mg BIDD IV 02/17/25 18:00 02/20/25 05:31 20 MG Diagnostic Test (Pha) 1 strip ACHS 02/17/25 22:00 02/20/25 06:19 1 STRIP Insulin Human Regular ACHS SC 02/17/25 22:00 02/19/25 21:26 2 UNITS Dextrose 50 ml UD PRN IV 02/17/25 17:30 Insulin Glargine 10 units DAILY@1000 SC 02/18/25 10:00 02/19/25 10:24 10 UNITS Atorvastatin Calcium 80 mg HS PO 02/18/25 22:00 02/19/25 21:22 80 MG Acetaminophen 325 mg Q4HP PRN PO 02/18/25 10:00 02/20/25 00:52 325 MG Ceftriaxone Sodium 50 ml @ 100 mls/hr DAILY@09 IV 02/19/25 09:00 02/19/25 09:32 100 MLS/HR Heparin Sodium/ Dextrose 250 ml @ 11 mls/hr [id number] IV 02/18/25 11:45 02/19/25 19:44 11 MLS/HR Sennosides 8.6 mg HS PO 02/18/25 22:00 02/19/25 21:23 8.6 MG Dobutamine HCl/ Dextrose 250 ml @ 15.228 mls/ hr [id number] IV 02/19/25 15:45 02/19/25 16:50 15.228 MLS/HR Phenylephrine HCl 80 mg/Sodium Chloride 250 ml @ 1.875 mls/ hr Q24H IV 02/19/25 15:45 02/19/25 16:52 13.125 MLS/HR Sodium Chloride 10 ml QSHIFT@10,22 IV 02/19/25 22:00 02/19/25 21:28 10 ML Examination: LUNGS:Abnormal (Right sided crackles), CVS:Normal (Sinus tachycardia low 100s bpm. On dobutamine drip. Off vasopressor), MSK:Normal (Right pedal pulse 2+), NEURO:Normal laboratory and microbiology Laboratory Tests 02/20/25 05:10 Test 02/20/25 05:10 Range/Units Serum Glucose 89 74-106 mg/dL Problem List/Assessment/Plan Problem List/Assessment/Plan Cardiogenic shock with intra-aortic balloon pump placement Severe multivessel coronary artery disease/dilated cardiomyopathy with LVEF at 10% Acute on chronic decompensated HFrEF, NYHA Class III Nah-xticmqe-xxnwzqarm diabetes mellitus Dyslipidemia HECTOR on CKD Obesity Plan/Recommendation (Dr. Crawford) The patient with severe multivessel coronary artery disease/dilated cardiomyopathy with LVEF at 10% is status post intra-aortic balloon pump placement given very high-risk for interventional procedures. Plan is to attempt to transfer to higher level of care for high-risk PCI with surgical back up. In the event of clinical deterioration/instability, the patient will require urgent in house Impella device assisted angioplasty of the LAD. In the meantime, keep augmented pressure on IABP above 110, continue heparin and dobutamine drips. Initiate quac concentration Neosynephrine to maintain a MAP 65 or above as needed. Continue ARNI and SGLT2i. Continue satin and ezetimibe therapy. Strict I&Os, daily weight, and fluid restrictions. Monitor ECG changes closely and notify. Continue urgent social welfare research worker consultation for insurance. The patient can benefit from eventual lipoprotein studies. He will need referral for heart transplant evaluation post-procedure. Further recommendations per clinical course. Thank you for allowing us to participate in this patient's care. Please call if you have any questions or concerns. Critical care time: 45 min. This medical document was created using an electronic medical record system with voice recognition software and computerized dictation system. Although this document has been carefully reviewed, there might still be some phonetic and typographical errors. Occasional wrong-word or ``sound-alike substitutions may have occurred due to the inherent limitations of voice recognition software. These areas are purely typographical due to imperfections of the software programs and do not reflect any compromise in the patient's medical care. Please read the chart carefully and recognize, using context, where these substitutions have occurred. Plan discussed with: Patient, Other Dietary Evaluation Review Comments: 1) [facility] 2[facility] Na diet 2) Refer En[employer] Chemist on DC Expected Outcomes/Goals: To meet >75% estimated needs Fu 3-5 days Date of Service: Feb 20, 2025 Billing Provider: GEORGE BLUNT Cardiology Common Codes: [id number] CARE 30-74 MIN GEORGE BLUNT Feb 20, 2025 09:34
[2025-02-20] MEDS: POTASSIUM CHL 20 Meq TABLET PO ONE (10:35)
[2025-02-20 13:47] LABS: Hematocrit 43.6 % (41.0-53.0); Hemoglobin 14.7 g/dL (13.5-17.5); Mean Corpuscular Hemoglobin 29.0 pg (28.0-32.0); Mean Corpuscular Volume 85.5 fL (80.0-100.0); Nucleated Red Blood Cells % 0.1 %
[2025-02-20 14:00] LABS: Chloride 100 mmol/L (98-107); Potassium 4.1 mmol/L (3.5-5.1); Sodium 137 mmol/L (136-145)
[2025-02-20 14:01] LABS: Anion Gap 10 (5-15); Carbon Dioxide 27 mmol/L (20-31)
[2025-02-20 14:02] LABS: Calcium 9.4 mg/dL (8.7-10.4)
[2025-02-20 14:07] LABS: BUN/Creatinine Ratio 13.3 (10.0-20.0); Blood Urea Nitrogen 11 mg/dL (9-23); Glucose 213 mg/dL (74-106)
--- NOTE | 2025-02-20 14:57 | DVHPNRES ---
Progress Note Date Seen: Feb 20, 2025 Resident Creating Document: GIORGIO VASQUEZ RESIDENT Has the PT tested + for MRSA If YES, has PT been informed?: No Medical Necessity Reason Pt with a Central, PICC or Fol: No Subjective Review of Systems This is a 39-year-old male with past medical history of DM 2, CHF with reduced EF came to ED with the complain of epigastric and retrosternal pain for 10 days which is worsen for last 3 days, localized, occasionally radiate on the back, sometimes pressure-like sensation, the patient rated the pain as 7/10 intensity, aggravated on any kind of exertion and mildly relieved on rest. Patient reports having shortness of breaths with the same duration which is also increase on minimal exertion or activity. Patient reported feeling fatigue with occasional dizziness, loss of appetite, decreased urination, orthopnea and bilateral leg swelling. Patient was recently discharged on 02/03/2025 with diagnosed acute on chronic systolic heart failure. CT of the abdomen and pelvis without contrast on previous admission showed a Large bilateral pleural effusions, [id number], with adjacent atelectasis and lobar collapse. Cardiomegaly and trace pericardial effusion. There was also Moderate pericholecystic edema and Moderate abdominopelvic ascites. Echo on 01/31/2025 shows remarkably dilated all cardiac chamber, severe LV and RV with global hypokinesis, left ventricular ejection fraction only 10%, severe MR and TR, and severe pulmonary hypertension. Patient currently denies any cough, headache, nausea, vomiting, diarrhea, dysuria. Patient was admitted for left heart cath which showed multivessel disease on the RCA, CX, LAD and PDA. An intra aortic balloon pump was placed after left heart catheterization for cardiac and hemodynamic support. Per cardiology team, patient should be transferred to higher level of care for high-risk PCI with surgical back up. Patient also would be candidate for heart transplant at some point. Meanwhile, if patient cant be transfered to [facility], cardiology team will be doing Impela device placement with high risk PCI to LAD on thursday. Patient seen and examined at bedside. Patient is currently lying in bed no active chest pain at this time. Intra aortic balloon pump in place maintaining blood pressure on normal range with the MAP >70 at this time. Patient is currently out of pressors at this time, phenylephrine was hold at this time due to BP on range with dobutamine drip at 3mck/kg/min and intra aortic balloon pump. Patient is on currently on 2 L of oxygen through nasal cannula saturating above 97%. Patient will undergo Impella device placement with high-risk PCI to the LAD on Thursday by Cardiology team in our hospital. Patient is developing occasional PVCs on the monitor but mainly sinus tachycardia. We will continue current management at this time. Entresto was hold it previously due to low blood pressure we will still give empagliflozin 10 mg daily. We will repeat an echocardiogram to further evaluate possible heart improvement. ROS Constitutional: Denies weight loss, fever and chills. HEENT: Denies changes in vision and hearing. Respiratory: Denies shortness of breath and cough Cardiovascular: Denies chest discomfort or palpitations GI: Denies abdominal pain, nausea, vomiting and diarrhea. : Denies dysuria and urinary frequency. Musculoskeletal: Denies myalgias and joint pain Skin: Denies rash and pruritus. Neurological: Denies dizziness, headache, vision or hearing problems Objective vital signs Vital Sign Date Time Temp Pulse Resp B/P (MAP) Pulse Ox O2 Delivery O2 Flow Rate FiO2 02/20/25 13:45 104 22 119/53 (75) 98 02/20/25 12:00 Nasal Cannula* 2 28 02/20/25 11:30 98.3 98.3 Total Intake and Output 02/19/25 02/19/25 02/20/25 15:00 23:00 07:00 Intake Total 424.638 ml 841.389 ml 296.388 ml Output Total 1185 ml 1895 ml 935 ml Balance -760.362 ml -1053.611 ml -638.612 ml medications Current Medications Medications Dose Ordered Sig/Shanika Route Start Time Stop Time Status Last Admin Dose Admin Nitroglycerin 0.4 mg Q5MINP PRN SL 02/17/25 03:15 Morphine Sulfate 2 mg Q30M PRN IV 02/17/25 03:15 Empaglifozin 10 mg DAILY PO 02/17/25 10:00 02/20/25 09:29 10 MG Furosemide 20 mg BIDD IV 02/17/25 18:00 02/20/25 05:31 20 MG Diagnostic Test (Pha) 1 strip ACHS 02/17/25 22:00 02/20/25 11:32 1 STRIP Insulin Human Regular ACHS SC 02/17/25 22:00 02/20/25 11:32 3 UNITS Dextrose 50 ml UD PRN IV 02/17/25 17:30 Insulin Glargine 10 units DAILY@1000 SC 02/18/25 10:00 02/20/25 09:31 10 UNITS Atorvastatin Calcium 80 mg HS PO 02/18/25 22:00 02/19/25 21:22 80 MG Acetaminophen 325 mg Q4HP PRN PO 02/18/25 10:00 02/20/25 00:52 325 MG Ceftriaxone Sodium 50 ml @ 100 mls/hr DAILY@09 IV 02/19/25 09:00 02/20/25 09:29 100 MLS/HR Heparin Sodium/ Dextrose 250 ml @ 11 mls/hr [id number] IV 02/18/25 11:45 02/19/25 19:44 11 MLS/HR Sennosides 8.6 mg HS PO 02/18/25 22:00 02/19/25 21:23 8.6 MG Dobutamine HCl/ Dextrose 250 ml @ 15.228 mls/ hr [id number] IV 02/19/25 15:45 02/20/25 11:01 15.228 MLS/HR Phenylephrine HCl 80 mg/Sodium Chloride 250 ml @ 1.875 mls/ hr Q24H IV 02/19/25 15:45 02/19/25 16:52 13.125 MLS/HR Sodium Chloride 10 ml QSHIFT@10,22 IV 02/19/25 22:00 02/20/25 09:37 10 ML Examination Physical Examination General: Patient alert and oriented in person, place and time. Patient following commands. HEENT: Normocephalic, atraumatic, moist mucous membranes Respiratory/pulmonary: Slightly deacrease breath sounds on lung bases but otherwise grossly clear, no associated crackles or wheezes. Cardiovascular: Increased heart sounds S1 and S2 with no associated murmurs Abdomen: Abdomen nondistended, there is no pain to palpation in any of the abdominal quadrants, no palpable masses. Extremities: There is no peripheral edema present at the lower extremities. Skin: No rashes or pruritus, there is no sacral edema present at this time. Neurological: Intact cranial nerves with no focal neurologic deficits laboratory and microbiology Laboratory Tests 02/20/25 13:05 Test 02/20/25 13:05 Range/Units Serum Glucose 213 #H 74-106 mg/dL Microbiology Date/Time Source Procedure Growth Status 02/18/25 03:42 Nose MRSA Screen - Final Complete 02/17/25 18:20 Urine - [place] Urine Culture - Final Complete Problem List/Assessment/Plan Problem List/Assessment/Plan Assessment/plan Acute coronary syndrome with multivessel disease Acute on chronic systolic heart failure exacerbation (HFrEF 10%) Acute cardiogenic shock due to above Cardiogenic shock with intra- aortic balloon pump placement Severe dilated cardiomyopathy likely due to chronic ischemia? -S/P coronary angiogram RCA has a 99% stenosis. PDA has a 90% proximal ostial lesion. Circumflex artery has a proximal 50-60% stenosis. Left anterior descending (LAD) 99% subtotal stenosis. -S/P intra aortic balloon pump placement for cardiogenic/hemodynamic support -Continue dobutamin drip at 3mcg/kg/min -OFF vasopressors at this time. Phenylephrine was hold due to BP on normal range with previous mentioned meds/support. -Continue empaglifozin 10mg daily -Will repeat Echocardiogram -cardiology team is planning Impella device placement with high risk PCI to the LAD on Thursday -continue heparin drip -continue atorvastatin 80 mg daily -Monitor Ins and Outs ( Ins: 924 cc, out's 1245 cc. Negative balance of 320 cc in the last 24 hours) HECTOR likely due to cardiogenic shock -initial BUN and creatinine were 21, 1.67 respectively. Current BUN 11, Cr 0.83. (resolved) -Continue cardiac support with intra-aortic balloon pump and dobutamine drip to maintain kidney perfusion -Monitor kidney function closely -Monitor electrolytes Severe pulmonary hypertension -Echo on 01/31/2025 shows remarkably dilated all cardiac chamber, severe pulmonary hypertension, RVSP was 56. -Monitor Type 2 diabetes mellitus with hyperglycemia -last hemoglobin A1c on 01/31/2025 showed 9.9% -continue mild sliding scale insulin -continue Lantus 10 units daily -monitor blood glucose closely Dyslipidemia -Continue atorvastatin 80mg daily Acute on chronic abdominal pain likely in the setting of GERD -Start pantoprazole 40mg daily Diet: Cardiac diet Lines: -PICC line on Left upper arm placed on 02/19/2025 Goals of care discussed with the patient and at bedside for >45min, FULL CODE Plan discussed with Dr. Muir Plan discussed with: Patient, Spouse Dietary Evaluation Review Comments: 1) [facility] + 2gm Na diet 2) Refer Disability Hearing Officer on [place] Expected Outcomes/Goals: To meet >75% estimated needs Fu 3-5 days Date of Service: Feb 20, 2025 Billing Provider: RAFI CAMPA MD Common Visit Codes: 72354-[id number] CARE 30-74 MIN GIORGIO VASQUEZ RESIDENT Feb 20, 2025 14:57 RAFI CAMPA MD Mar 01, 2025 01:13
[2025-02-20] MEDS: HEPARIN DRIP/D5W 100UNITS/ML 250 ML IV ONE (17:24)
[2025-02-20 18:34] LABS: Hematocrit 45.9 % (41.0-53.0); Hemoglobin 15.4 g/dL (13.5-17.5); Mean Corpuscular Hemoglobin 28.9 pg (28.0-32.0); Mean Corpuscular Volume 86.3 fL (80.0-100.0); Nucleated Red Blood Cells % 0.0 %
[2025-02-20 18:46] LABS: Anion Gap 9 (5-15); Carbon Dioxide 27 mmol/L (20-31); Chloride 102 mmol/L (98-107); Potassium 4.2 mmol/L (3.5-5.1); Sodium 138 mmol/L (136-145)
[2025-02-20 18:47] LABS: Calcium 9.9 mg/dL (8.7-10.4)
[2025-02-20 18:52] LABS: BUN/Creatinine Ratio 11.2 (10.0-20.0); Blood Urea Nitrogen 10 mg/dL (9-23)
[2025-02-20 19:03] LABS: Glucose 125 mg/dL (74-106)
[2025-02-20] MEDS: PANTOPRAZOLE 40 MG/10 ML VIAL INJ IV SCH (19:49)
[2025-02-21] VITALS (101 sets, daily range): BP systolic 95–134; BP diastolic 26–86; PULSE 79–114; RESP 9–29; TEMP 97.8–98.4; O2SAT 93–100
[2025-02-21 03:33] LABS: Hematocrit 43.8 % (41.0-53.0); Hemoglobin 15.0 g/dL (13.5-17.5); Mean Corpuscular Hemoglobin 29.3 pg (28.0-32.0); Mean Corpuscular Volume 85.6 fL (80.0-100.0); Nucleated Red Blood Cells % 0.1 %
[2025-02-21 03:40] LABS: Calcium 9.1 mg/dL (8.7-10.4); Chloride 102 mmol/L (98-107); Potassium 4.2 mmol/L (3.5-5.1); Sodium 138 mmol/L (136-145)
[2025-02-21 03:41] LABS: Anion Gap 9 (5-15); Carbon Dioxide 27 mmol/L (20-31)
[2025-02-21 03:46] LABS: BUN/Creatinine Ratio 10.1 (10.0-20.0); Blood Urea Nitrogen 10 mg/dL (9-23); Glucose 97 mg/dL (74-106)
[2025-02-21 03:47] LABS: INR 1.06 (0.9-1.15); Partial Thromboplastin Time 63.5 SEC (24.5-34.5); Prothrombin Time 11.2 sec (9.3-11.8)
--- NOTE | 2025-02-21 04:51 | DVH ---
CHEST RADIOGRAPH Indication: monitor pulm parenchyma, effusions/ congestion Technique: Single frontal view of the chest was obtained COMPARISON: XY CHEST PORTABLE on DOS: 02/20/25, XY CHEST PORTABLE on DOS: 02/19/25, XY CHEST XRAY 1 VIE W on DOS: 02/18/25, XY CHEST PORTABLE on DOS: 02/17/25, XY CHEST PORTABLE on DOS: 02/16/25 FINDINGS: Lines and Tubes: None Lungs: Stable appearing right basilar airspace disease and small bilateral pleural effusions. No pneumothorax. Cardiomediastinal contours: Unremarkable Bones: Unremarkable IMPRESSION: 1. Stable right basilar airspace disease and small bilateral pleural effusions.
--- NOTE | 2025-02-21 08:39 | ECG ---
[facility] Test Date: 2025-02-16 Test Time: 21:51:04 Pat Name: OSCAR BRAGG Department: er Room: [address] [place] [address] A Gender: M Pediatrics Physician: : [id number] Requested By: GEETA CHAUDHARI Order Number: [id number] Reading MD: Dada Crawford Measurements Intervals [place] Rate: 104 P: 36 VT: 168 QRS: 62 QRSD: 115 T: -3 QT: 351 QTc: 462 Interpretive Statements Sinus tachycardia Multiform ventricular premature complexes Probable left atrial enlargement Nonspecific intraventricular conduction delay Low voltage, extremity leads Electronically Signed On 02-22-2025 15:45:55 PDT by Dada Crawford Please click the below link to view image of tracing.
--- NOTE | 2025-02-21 13:12 | DVHPN2 ---
Consult Progress Note Date Seen: Feb 21, 2025 Subjective Review of Systems: CVS:Normal, RESPIRATORY:Normal, NEURO:Normal Other Systems: Reported ectopi on monitor. Patient denies any cardiac symptoms Objective vital signs Vital Sign Date Time Temp Pulse Resp B/P (MAP) Pulse Ox O2 Delivery O2 Flow Rate FiO2 02/21/25 12:45 94 02/21/25 12:30 18 116/56 (76) 99 02/21/25 12:00 98.4 98.4 02/21/25 12:00 Nasal Cannula* 2 28 Total Intake and Output 02/20/25 02/20/25 02/21/25 15:00 23:00 07:00 Intake Total 948.637 ml 1043.824 ml 443.368 ml Output Total 1025 ml 1488 ml 1273 ml Balance -76.363 ml -444.176 ml -829.632 ml medications Current Medications Medications Dose Ordered Sig/Shanika Route Start Time Stop Time Status Last Admin Dose Admin Nitroglycerin 0.4 mg Q5MINP PRN SL 02/17/25 03:15 Morphine Sulfate 2 mg Q30M PRN IV 02/17/25 03:15 Empaglifozin 10 mg DAILY PO 02/17/25 10:00 02/21/25 09:33 10 MG Furosemide 20 mg BIDD IV 02/17/25 18:00 02/21/25 05:49 20 MG Diagnostic Test (Pha) 1 strip ACHS 02/17/25 22:00 02/21/25 11:30 1 STRIP Insulin Human Regular ACHS SC 02/17/25 22:00 02/21/25 11:30 2 UNITS Dextrose 50 ml UD PRN IV 02/17/25 17:30 Insulin Glargine 10 units DAILY@1000 SC 02/18/25 10:00 02/21/25 09:42 10 UNITS Atorvastatin Calcium 80 mg HS PO 02/18/25 22:00 02/20/25 21:57 80 MG Acetaminophen 325 mg Q4HP PRN PO 02/18/25 10:00 02/20/25 00:52 325 MG Ceftriaxone Sodium 50 ml @ 100 mls/hr DAILY@09 IV 02/19/25 09:00 02/21/25 09:33 100 MLS/HR Heparin Sodium/ Dextrose 250 ml @ 11 mls/hr [id number] IV 02/18/25 11:45 02/20/25 17:24 11 MLS/HR Sennosides 8.6 mg HS PO 02/18/25 22:00 02/20/25 21:57 8.6 MG Dobutamine HCl/ Dextrose 250 ml @ 15.228 mls/ hr [id number] IV 02/19/25 15:45 02/21/25 02:00 15.228 MLS/HR Phenylephrine HCl 80 mg/Sodium Chloride 250 ml @ 1.875 mls/ hr Q24H IV 02/19/25 15:45 02/19/25 16:52 13.125 MLS/HR Sodium Chloride 10 ml QSHIFT@10,22 IV 02/19/25 22:00 02/21/25 09:34 10 ML Pantoprazole Sodium 40 mg DAILY IV 02/20/25 20:00 02/21/25 09:33 40 MG Examination: LUNGS:Abnormal (+Crackles R>L), CVS:Normal (On dobutamine/heparin drips. Off vasopressors. IABP in place), MSK:Normal (2+ right pedal pulse. 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 Crawford) The patient with severe multivessel coronary artery disease/dilated cardiomyopathy with LVEF at 10% is status post intra-aortic balloon pump placement given very high-risk for interventional procedures. Plan is to attempt to transfer to higher level of care for high-risk PCI with surgical back up. In the event of clinical deterioration/instability or unavailability to transfer to [facility], the patient will require urgent in house Impella device assisted angioplasty. In the meantime, keep augmented pressure on IABP above 110, continue heparin and dobutamine drips. Initiate quac concentration Neosynephrine to maintain a MAP 65 or above as needed. Continue ARNI and SGLT2i. Continue satin and ezetimibe therapy. Strict I&Os, daily weight, and fluid restrictions. Monitor ECG changes closely and notify. Continue urgent sr. social media & mobile manager consultation for insurance. The patient can benefit from eventual lipoprotein studies. He will need referral for heart transplant evaluation post-procedure. Further recommendations per clinical course. Thank you for allowing us to participate in this patient's care. Please call if you have any questions or concerns. Critical care time: 45 min. This medical document was created using an electronic medical record system with voice recognition software and computerized dictation system. Although this document has been carefully reviewed, there might still be some phonetic and typographical errors. Occasional wrong-word or ``sound-alike substitutions may have occurred due to the inherent limitations of voice recognition software. These areas are purely typographical due to imperfections of the software programs and do not reflect any compromise in the patient's medical care. Please read the chart carefully and recognize, using context, where these substitutions have occurred. Plan discussed with: Patient, Other Dietary Evaluation Review Comments: 1) Advance to [facility] 60gm + 2gm Na diet 2) Refer Vp Of Customer Experience Strategy on [place] Expected Outcomes/Goals: To meet >75% estimated needs Fu 3-5 days Date of Service: Feb 21, 2025 Billing Provider: GEORGE BLUNT Cardiology Common Codes: 73952-[id number] CARE 30-74 MIN GEORGE BLUNT Feb 21, 2025 13:12
--- NOTE | 2025-02-21 13:17 | DVHPNRES ---
Progress Note Date Seen: Feb 21, 2025 Resident Creating Document: GIORGIO VASQUEZ RESIDENT Has the PT tested + for MRSA If YES, has PT been informed?: No Medical Necessity Reason Pt with a Central, PICC or Fol: No Subjective Review of Systems This is a 39-year-old male with past medical history of DM 2, CHF with reduced EF came to ED with the complain of epigastric and retrosternal pain for 10 days which is worsen for last 3 days, localized, occasionally radiate on the back, sometimes pressure-like sensation, the patient rated the pain as 7/10 intensity, aggravated on any kind of exertion and mildly relieved on rest. Patient reports having shortness of breaths with the same duration which is also increase on minimal exertion or activity. Patient reported feeling fatigue with occasional dizziness, loss of appetite, decreased urination, orthopnea and bilateral leg swelling. Patient was recently discharged on 02/03/2025 with diagnosed acute on chronic systolic heart failure. CT of the abdomen and pelvis without contrast on previous admission showed a Large bilateral pleural effusions, [id number], with adjacent atelectasis and lobar collapse. Cardiomegaly and trace pericardial effusion. There was also Moderate pericholecystic edema and Moderate abdominopelvic ascites. Echo on 01/31/2025 shows remarkably dilated all cardiac chamber, severe LV and RV with global hypokinesis, left ventricular ejection fraction only 10%, severe MR and TR, and severe pulmonary hypertension. Patient currently denies any cough, headache, nausea, vomiting, diarrhea, dysuria. Patient was admitted for left heart cath which showed multivessel disease on the RCA, CX, LAD and PDA. An intra aortic balloon pump was placed after left heart catheterization for cardiac and hemodynamic support. Per cardiology team, patient should be transferred to higher level of care for high-risk PCI with surgical back up. Patient also would be candidate for heart transplant at some point. Meanwhile, if patient cant be transfered to [facility], cardiology team will be doing Impela device placement with high risk PCI to LAD on thursday. Patient seen and examined at bedside. Patient is still on dobutamine drip at 3 mcg/kg per minute, heparin drip. And has been stable on 2 L of oxygen through nasal cannula. Two a insert of 2437 cc, output of 3486 cc for stool in negative balance. immigration services officer working on the case to get insurance, meanwhile cardiology team decided to take the patient tomorrow for high-risk PCI with Impella device placement. Meanwhile we will continue current medical management with inotropic support with dobutamine. We will continue on furosemide 20 mg IV b.i.d., empagliflozin 10 mg daily, atorvastatin 80 mg daily. Patient states that he is feeling well overall and has no chest pain, shortness of breath, chest tightness, peripheral edema or any other associated symptoms. ROS Constitutional: Denies weight loss, fever and chills. HEENT: Denies changes in vision and hearing. Respiratory: Denies shortness of breath and cough Cardiovascular: Denies chest discomfort or palpitations GI: Denies abdominal pain, nausea, vomiting and diarrhea. : Denies dysuria and urinary frequency. Musculoskeletal: Denies myalgias and joint pain Skin: Denies rash and pruritus. Neurological: Denies dizziness, headache, vision or hearing problems Objective vital signs Vital Sign Date Time Temp Pulse Resp B/P (MAP) Pulse Ox O2 Delivery O2 Flow Rate FiO2 02/21/25 13:00 100 02/21/25 13:00 16 114/71 (85) 99 02/21/25 12:00 98.4 98.4 02/21/25 12:00 Nasal Cannula* 2 28 Total Intake and Output 02/20/25 02/20/25 02/21/25 15:00 23:00 07:00 Intake Total 948.637 ml 1043.824 ml 443.368 ml Output Total 1025 ml 1488 ml 1273 ml Balance -76.363 ml -444.176 ml -829.632 ml medications Current Medications Medications Dose Ordered Sig/Shanika Route Start Time Stop Time Status Last Admin Dose Admin Nitroglycerin 0.4 mg Q5MINP PRN SL 02/17/25 03:15 Morphine Sulfate 2 mg Q30M PRN IV 02/17/25 03:15 Empaglifozin 10 mg DAILY PO 02/17/25 10:00 02/21/25 09:33 10 MG Furosemide 20 mg BIDD IV 02/17/25 18:00 02/21/25 05:49 20 MG Diagnostic Test (Pha) 1 strip ACHS 02/17/25 22:00 02/21/25 11:30 1 STRIP Insulin Human Regular ACHS SC 02/17/25 22:00 02/21/25 11:30 2 UNITS Dextrose 50 ml UD PRN IV 02/17/25 17:30 Insulin Glargine 10 units DAILY@1000 SC 02/18/25 10:00 02/21/25 09:42 10 UNITS Atorvastatin Calcium 80 mg HS PO 02/18/25 22:00 02/20/25 21:57 80 MG Acetaminophen 325 mg Q4HP PRN PO 02/18/25 10:00 02/20/25 00:52 325 MG Ceftriaxone Sodium 50 ml @ 100 mls/hr DAILY@09 IV 02/19/25 09:00 02/21/25 09:33 100 MLS/HR Heparin Sodium/ Dextrose 250 ml @ 11 mls/hr [id number] IV 02/18/25 11:45 02/20/25 17:24 11 MLS/HR Sennosides 8.6 mg HS PO 02/18/25 22:00 02/20/25 21:57 8.6 MG Dobutamine HCl/ Dextrose 250 ml @ 15.228 mls/ hr [id number] IV 02/19/25 15:45 02/21/25 02:00 15.228 MLS/HR Phenylephrine HCl 80 mg/Sodium Chloride 250 ml @ 1.875 mls/ hr Q24H IV 02/19/25 15:45 02/19/25 16:52 13.125 MLS/HR Sodium Chloride 10 ml QSHIFT@10,22 IV 02/19/25 22:00 02/21/25 09:34 10 ML Pantoprazole Sodium 40 mg DAILY IV 02/20/25 20:00 02/21/25 09:33 40 MG Examination Physical Examination General: Patient alert and oriented in person, place and time. Patient following commands. HEENT: Normocephalic, atraumatic, moist mucous membranes Respiratory/pulmonary: Slightly deacrease breath sounds on lung bases but otherwise grossly clear, no associated crackles or wheezes. Cardiovascular: Increased heart sounds S1 and S2 with no associated murmurs Abdomen: Abdomen nondistended, there is no pain to palpation in any of the abdominal quadrants, no palpable masses. Extremities: There is no peripheral edema present at the lower extremities. Skin: No rashes or pruritus, there is no sacral edema present at this time. Neurological: Intact cranial nerves with no focal neurologic deficits laboratory and microbiology Laboratory Tests 02/21/25 02:45 Test 02/21/25 02:45 Range/Units Serum Glucose 97 74-106 mg/dL Microbiology Date/Time Source Procedure Growth Status 02/18/25 03:42 Nose MRSA Screen - Final Complete 02/17/25 18:20 Urine - [place] Urine Culture - Final Complete Problem List/Assessment/Plan Problem List/Assessment/Plan Assessment/plan Acute coronary syndrome with multivessel disease Acute on chronic systolic heart failure exacerbation (HFrEF 10%) Acute cardiogenic shock due to above Cardiogenic shock with intra- aortic balloon pump placement Severe dilated cardiomyopathy likely due to chronic ischemia? -S/P coronary angiogram RCA has a 99% stenosis. PDA has a 90% proximal ostial lesion. Circumflex artery has a proximal 50-60% stenosis. Left anterior descending (LAD) 99% subtotal stenosis. -S/P intra aortic balloon pump placement for cardiogenic/hemodynamic support -Continue dobutamin drip at 3mcg/kg/min -OFF vasopressors at this time. Phenylephrine was hold due to BP on normal range with previous mentioned meds/support. -Continue empaglifozin 10mg daily -Will repeat Echocardiogram -cardiology team is planning Impella device placement with high risk PCI tomorrow on LAD and other possible compromised vessels. -A f/u echo was done still pending official report -continue heparin drip -continue atorvastatin 80 mg daily -Monitor Ins and Outs ( Ins: 2437 cc, out's 3586 cc. Negative balance of 1149 cc in the last 24 hours) HECTOR likely due to cardiogenic shock -initial BUN and creatinine were 21, 1.67 respectively. Current BUN 11, Cr 0.99. (resolved) -Continue cardiac support with intra-aortic balloon pump and dobutamine drip to maintain kidney perfusion -Monitor kidney function closely -Monitor electrolytes Severe pulmonary hypertension -Echo on 01/31/2025 shows remarkably dilated all cardiac chamber, severe pulmonary hypertension, RVSP was 56. -Monitor Type 2 diabetes mellitus with hyperglycemia -last hemoglobin A1c on 01/31/2025 showed 9.9% -continue mild sliding scale insulin -continue Lantus 10 units daily -monitor blood glucose closely Dyslipidemia -Continue atorvastatin 80mg daily Acute on chronic abdominal pain likely in the setting of GERD -Start pantoprazole 40mg daily Diet: Cardiac diet Lines: -PICC line on Left upper arm placed on 02/19/2025 Social history RBCs working on insurance. Goals of care discussed with the patient and at bedside for >45min, FULL CODE Plan discussed with Dr. Muir Plan discussed with: Patient, Spouse My Orders My Orders Orders - GIORGIO VASQUEZ Procedure Category Date Status Time Pantoprazole PHA 02/20/25 In Process (Protonix) 20:00 Chest Xray 1 View XY 02/21/25 Resulted 04:00 * Wound Consult CONS 02/20/25 Transmitted Homocyst(E)Ine LAB 02/21/25 Logged 10:51 Dietary Evaluation Review Comments: 1) [facility] Na diet 2) Refer Hotel Yardperson on [place] Expected Outcomes/Goals: To meet >75% estimated needs Fu 3-5 days Date of Service: Feb 21, 2025 Billing Provider: RAFI CAMPA MD Common Visit Codes: 08224-EORYYMLX CARE 30-74 MIN GIORGIO VASQUEZ RESIDENT Feb 21, 2025 13:17 RAFI CAMPA MD Mar 01, 2025 01:18
[2025-02-21] MEDS: MAGNESIUM SULFATE 1GM/100ML 100 ML IV ONE (15:56)
[2025-02-22] VITALS (93 sets, daily range): BP systolic 80–133; BP diastolic 46–88; PULSE 80–117; RESP 12–27; TEMP 98.1–99.5; O2SAT 95–100
[2025-02-22 03:29] LABS: Hematocrit 42.2 % (41.0-53.0); Hemoglobin 14.5 g/dL (13.5-17.5); Mean Corpuscular Hemoglobin 29.3 pg (28.0-32.0); Mean Corpuscular Volume 85.3 fL (80.0-100.0); Nucleated Red Blood Cells % 0.0 %
[2025-02-22 03:48] LABS: Albumin 4.3 g/dL (3.2-4.8); Alkaline Phosphatase 71 U/L (46-116); Anion Gap 11 (5-15); BUN/Creatinine Ratio 14.0 (10.0-20.0); Bilirubin, Total 1.1 mg/dL (0.2-1.0); Blood Urea Nitrogen 13 mg/dL (9-23); Calcium 9.1 mg/dL (8.7-10.4); Carbon Dioxide 26 mmol/L (20-31); Magnesium 2.5 mg/dL (1.6-2.6); Potassium 4.0 mmol/L (3.5-5.1); Total Protein 6.8 g/dL (5.7-8.2)
[2025-02-22 03:49] LABS: INR 1.04 (0.9-1.15); Prothrombin Time 11.0 sec (9.3-11.8)
[2025-02-22 03:50] LABS: Alanine Aminotransferase 9 U/L (7-40); Chloride 97 mmol/L (98-107); Glucose 241 mg/dL (74-106); Sodium 134 mmol/L (136-145)
[2025-02-22 03:52] LABS: Partial Thromboplastin Time 78.5 SEC (24.5-34.5)
[2025-02-22] MEDS: HEPARIN DRIP/D5W 100UNITS/ML 250 ML IV SCH (04:15)
--- NOTE | 2025-02-22 04:55 | DVH ---
CHEST RADIOGRAPH Indication: IABP placement Technique: Single frontal view of the chest was obtained COMPARISON: XY CHEST XRAY 1 VIEW on DOS: 02/21/25, XY CHEST PORTABLE on DOS: 02/20/25, XY CHEST PORTABL E on DOS: 02/19/25, XY CHEST XRAY 1 VIEW on DOS: 02/18/25, XY CHEST PORTABLE on DOS: 02/17/25 FINDINGS: Lines and Tubes: Left peripherally inserted central catheter stable in position. Lungs: Stable appearing small bilateral pleural effusions and right lower lung zone pulmonary airspac e disease. No pneumothorax. Cardiomediastinal contours: Unremarkable Bones: Unremarkable IMPRESSION: 1. Stable appearing right lower lung zone pulmonary airspace disease and bilateral pleural effusions. 2. Left PICC.
[2025-02-22] MEDS: IODIXANOL 320MG/ML 100ML BTL IV ONE (06:20)
[2025-02-22] MEDS: HEPARIN IN NS 1000Units/500mL 1,500 ML ONE (06:20)
[2025-02-22] MEDS: fentaNYL CITRATE 100 MCG/2 ML VL ONE (06:48)
[2025-02-22] MEDS: MIDAZOLAM HCL 2MG/2ML 2ml VIAL (1mg/ml) ONE (06:48)
[2025-02-22] MEDS: LIDOCAINE 2%HCL (LOCAL ANESTH.) INJ 20ML MDV ONE (06:48)
[2025-02-22] MEDS: ANGIOMAX 250 MG VIAL IV ONE ×2 (06:48→08:27)
[2025-02-22] MEDS: SODIUM CHL 0.9% 50 ML ONE ×2 (06:48→08:27)
[2025-02-22] MEDS: CLOPIDOGREL BISULFATE 75 MG TAB ONE ×2 (08:27)
--- NOTE | 2025-02-22 09:09 | DVHPN2 ---
Consult Progress Note Date Seen: Feb 22, 2025 Subjective Review of Systems: CVS:Normal, RESPIRATORY:Normal, NEURO:Normal Other Systems: S/p Impella deviced assisted high-risk PCI Objective vital signs Vital Sign Date Time Temp Pulse Resp B/P (MAP) Pulse Ox O2 Delivery O2 Flow Rate FiO2 02/22/25 06:15 101 17 133/88 (103) 99 02/22/25 06:00 Nasal Cannula* 2 28 02/22/25 04:00 98.2 98.2 Total Intake and Output 02/21/25 02/21/25 02/22/25 15:00 23:00 07:00 Intake Total 853.824 ml 426.052 ml 177.956 ml Output Total 1725 ml 1800 ml 505 ml Balance -871.176 ml -1373.948 ml -327.044 ml medications Current Medications Medications Dose Ordered Sig/Shanika Route Start Time Stop Time Status Last Admin Dose Admin Nitroglycerin 0.4 mg Q5MINP PRN SL 02/17/25 03:15 Morphine Sulfate 2 mg Q30M PRN IV 02/17/25 03:15 Empaglifozin 10 mg DAILY PO 02/17/25 10:00 02/21/25 09:33 10 MG Furosemide 20 mg BIDD IV 02/17/25 18:00 02/22/25 05:33 20 MG Diagnostic Test (Pha) 1 strip ACHS 02/17/25 22:00 02/22/25 06:31 1 STRIP Insulin Human Regular ACHS SC 02/17/25 22:00 02/21/25 21:59 3 UNITS Dextrose 50 ml UD PRN IV 02/17/25 17:30 Insulin Glargine 10 units DAILY@1000 SC 02/18/25 10:00 02/21/25 09:42 10 UNITS Atorvastatin Calcium 80 mg HS PO 02/18/25 22:00 02/21/25 21:58 80 MG Acetaminophen 325 mg Q4HP PRN PO 02/18/25 10:00 02/20/25 00:52 325 MG Ceftriaxone Sodium 50 ml @ 100 mls/hr DAILY@09 IV 02/19/25 09:00 02/21/25 09:33 100 MLS/HR Sennosides 8.6 mg HS PO 02/18/25 22:00 02/21/25 21:58 8.6 MG Dobutamine HCl/ Dextrose 250 ml @ 15.228 mls/ hr [id number] IV 02/19/25 15:45 02/21/25 18:37 15.228 MLS/HR Phenylephrine HCl 80 mg/Sodium Chloride 250 ml @ 1.875 mls/ hr Q24H IV 02/19/25 15:45 02/19/25 16:52 13.125 MLS/HR Sodium Chloride 10 ml QSHIFT@10,22 IV 02/19/25 22:00 02/21/25 22:02 10 ML Pantoprazole Sodium 40 mg DAILY IV 02/20/25 20:00 02/21/25 09:33 40 MG Examination: LUNGS:Abnormal (Diminished R>L), CVS:Normal (NSR. On dobutamine drip), NEURO:Normal laboratory and microbiology Laboratory Tests 02/22/25 02:30 Test 02/22/25 02:30 Range/Units Serum Glucose 241 #H 74-106 mg/dL Problem List/Assessment/Plan Problem List/Assessment/Plan Cardiogenic shock status post Impella device assisted high-risk PCI Severe multivessel coronary artery disease status post PTCA of the LAD/RCA x 2DES Acute on chronic decompensated HFrEF, NYHA Class III End-stage/dilated cardiomyopathy with LVEF at 10% Pulmonary hypertension, moderate degree Severe mitral/tricuspid valve regurgitation Wrc-mjgftwt-fwjfcbiis diabetes mellitus Dyslipidemia HECTOR on CKD Obesity Plan/Recommendation (Dr. Crawford) The patient with severe multivessel coronary artery disease and dilated cardiomyopathy with LVEF at 10% underwent a successful Impella device assisted high-risk PTCA and stenting of the LAD x 1 ANN MARIE and RCA x 1 ANN MARIE (see surgical report). Continue ARNI (Entresto 24mg/26mg x 0.5 tab qd samples provided for a total supply of three months) and SGLT2i. Continue statin and ezetimibe therapy. Continue Lasix therapy, strict I&Os, daily weight, and fluid restrictions. Monitor ECG changes closely and notify. Monitor right groin area closely and apply pressure accordingly, notify cardiology of any s/s of bleed. The patient can benefit from eventual lipoprotein studies. He will need referral for heart transplant evaluation post-procedure. Further recommendations per clinical course. Thank you for allowing us to participate in this patient's care. Please call if you have any questions or concerns. Critical care time: 40 min. This medical document was created using an electronic medical record system with voice recognition software and computerized dictation system. Although this document has been carefully reviewed, there might still be some phonetic and typographical errors. Occasional wrong-word or ``sound-alike substitutions may have occurred due to the inherent limitations of voice recognition software. These areas are purely typographical due to imperfections of the software programs and do not reflect any compromise in the patient's medical care. Please read the chart carefully and recognize, using context, where these substitutions have occurred. Plan discussed with: Patient, Other Dietary Evaluation Review Comments: 1) [facility] 2gm Na diet 2) Refer Power House Engineer on DC Expected Outcomes/Goals: To meet >75% estimated needs Fu 3-5 days Date of Service: Feb 22, 2025 Billing Provider: GEORGE BLUNT Cardiology Common Codes: 79423-ERDOBEOT CARE 30-74 MIN GEORGE BLUNT Feb 22, 2025 09:09
--- NOTE | 2025-02-22 09:50 | DVHOP2 ---
Operative Report - 2 Report Details Date: 02/22/25 Preop Diagnosis: Coronary artery disease Postop Diagnosis: Coronary artery disease. Severe cardiomyopathy. Triple-vessel disease. Successful PTCA and stenting of left anterior descending coronary artery and distal RCA/PDA. Successful removal of intra-aortic balloon pump. Successful placement of Impella device pre PTCA and stenting. Successful removal of Impella device postprocedure. Surgeon: Trent Crawford MD Anesthesiologist: Conscious sedation Anesthesia: Mac, Local Consent: The patient was informed of the risks and benefits of the procedure. These include but are not limited to complications of anesthesia, postoperative infection, incomplete relief of symptoms, recurrence of symptoms, damage to blood vessels, nerves and tendons, deep venous thrombosis, pulmonary embolism and possible need for repeat surgery in the future. Complications: No complications Estimated Blood Loss: 20 cc Findings: Severe CAD involving the LAD and RCA/PDA. Severe ischemic cardiomyopathy. Severely Elevated left ventricular end-diastolic pressures. Indications for Surgery: Severe ischemic cardiomyopathy. Triple-vessel disease. Name of Procedure Performed Intra-aortic balloon pump removal. Placement of Impella device. PTCA and stenting of LAD and RCA/PDA. Procedure Details Procedure Details: Prior local anesthesia with 2% lidocaine to the right groin over the pre- existing intra-aortic balloon pump sheath patient was prepped and draped in the usual fashion. We placed a 018 wire into the balloon pump. An effort was made to remove the balloon pump however this was unsuccessful for which we removed the balloon pump along with the sheath and retained in 018 wire. We then placed a eight [place] dilator and removed the 018 wire and placed in 035 J curved wire through which we then dilated with a 10 [place] sheath and subsequently placed a 12 [place] Impella catheter into the right femoral artery successfully. Prior to this we used two Perclose devices. The Impella was then placed successfully. Was successfully functional at P5 at a proximally gradient than 3.5 L/min. Through the existing Impella catheter we placed a seven [place] sheath and subsequently a six [place] three five EBU guide into the left main. We used a whisper wire to cross the area of stenosis in the proximal LAD which was 99% with LINK one flow or less. We used a two five balloon to pre dilate. There was notably improved flow. We then placed a 3-0 by 22 mm stent into the proximal left anterior descending coronary artery at a proximally 14 atmospheres with excellent antegrade flow without thrombus formation and/or dissection. LINK three flow was noted. We performed fractional flow reserve evaluation of the circumflex however the circumflex distal distribution was rather small for which we then opted to treat this medically. Once we revascularize the left anterior descending coronary artery successfully and patient remained hemodynamically stable we then addressed the RCA by wiring it with the same whisper wire. We placed the wire distally into the distal RCA/PDA and placed a 2-0 balloon. We pre-dilated the 99% stenosis of the distal RCA/PDA. There was notably improved flow. We then placed a 2-0 by 15 mm stent into the RCA/PDA segment. There was notably improved flow subsequent to the deployment of the stent at a proximally 12 atmospheres. We post dilated the proximal segment of the stent which was in the distal RCA prior to the origin of the PDA 2-0 proximally 20 atmospheres. There was notably improved flow to a LINK three characteristics. After adequate revascularization of the LAD and the RCA we monitored the patient and found that it was viable to pull the Impella device successfully with minimal problems. The patient's hemodynamics were stable. Upon lowering the Impella to a P1 we pulled it and placed it at P1 to P2 until it was removed. The Perclose devices were in place for which we then pulled the large Impella sheath successfully. The patient tolerated the procedure well there were no complications. Impression successful PTCA and stenting of the left anterior descending coronary artery and the distal RCA/PDA. Successful removal of intra-aortic balloon pump. Successful placement of Impella device with subsequent removal. Patient remained hemodynamically stable throughout. Recommendations factor modification. Continue dual antiplatelet therapy. Condition Guarded Disposition Still a Patient Date of Service: Feb 22, 2025 Billing Provider: TRENT CRAWFORD Sr., MD Cardiology Common Codes: 92869-XOSIPZB INP/OBS CARE (High) Cardiology Procedure Codes: 14101 -PTCA W/STENT PLACEMENT, 19187-XPKG ADD CORONARY BRANCH, 22342-PQEW HEART CATH W/INTRA INJ (Intra-aortic balloon pump removal. Placement and removal of Impella device perioperatively. PTCA and stenting of the LAD and RCA/PDA.) TRENT CRAWFORD Sr., MD Feb 22, 2025 09:50
--- NOTE | 2025-02-22 09:57 | DVHSR ---
APPROVED REPORT EXAM: LIMITED Two-dimensional and M-mode echocardiogram for function only. Blood Pressure: 111/71 mmHg INDICATION LV function only RISK FACTORS Height: 67, Weight: 174 DIMENSIONS LVDd6.1 (3.8-5.7cm)LA (2D) (1.9-4.0cm)Aortic Root (2.0-3.7cm) LVDs5.2 (2.5-4.0cm)LA (MM) (1.9-4.0cm)Aortic Cusp Exc (1.5-2.0cm) EF (%) 30.0 (55-70%)Rt. Atrium (1.9-4.0cm)Asc. Aorta cm Mitral Valve MitralMitral Stenosis E/A ratio0.02D MVAcm2 Other Information Technically limited study due to function only. Conclusion DILATED ALL CARDIAC CHAMBERS SEVERE LV AND RV HYPOKINESIS LV EF IS ONLY 20% NORMAL VALVES NO EFFUSION IT IS END STAGE DILATED CARDIOMYOPATHY
[2025-02-22] MEDS: CLOPIDOGREL BISULFATE 75 MG TAB PO SCH (10:00)
[2025-02-22] MEDS: EZETIMIBE 10 MG TAB PO SCH (10:15)
[2025-02-22] MEDS: SACUBITRIL-VALSARTAN 24mg/26mg TAB PO SCH (10:19)
--- NOTE | 2025-02-22 11:59 | DVHPNRES ---
Progress Note Date Seen: Feb 22, 2025 Resident Creating Document: GIORGIO VASQUEZ RESIDENT Has the PT tested + for MRSA If YES, has PT been informed?: No Medical Necessity Reason Pt with a Central, PICC or Fol: No Subjective Review of Systems This is a 39-year-old male with past medical history of DM 2, CHF with reduced EF came to ED with the complain of epigastric and retrosternal pain for 10 days which is worsen for last 3 days, localized, occasionally radiate on the back, sometimes pressure-like sensation, the patient rated the pain as 7/10 intensity, aggravated on any kind of exertion and mildly relieved on rest. Patient reports having shortness of breaths with the same duration which is also increase on minimal exertion or activity. Patient reported feeling fatigue with occasional dizziness, loss of appetite, decreased urination, orthopnea and bilateral leg swelling. Patient was recently discharged on 02/03/2025 with diagnosed acute on chronic systolic heart failure. CT of the abdomen and pelvis without contrast on previous admission showed a Large bilateral pleural effusions, [id number]-left, with adjacent atelectasis and lobar collapse. Cardiomegaly and trace pericardial effusion. There was also Moderate pericholecystic edema and Moderate abdominopelvic ascites. Echo on 01/31/2025 shows remarkably dilated all cardiac chamber, severe LV and RV with global hypokinesis, left ventricular ejection fraction only 10%, severe MR and TR, and severe pulmonary hypertension. Patient currently denies any cough, headache, nausea, vomiting, diarrhea, dysuria. Patient was admitted for left heart cath which showed multivessel disease on the RCA, CX, LAD and PDA. An intra aortic balloon pump was placed after left heart catheterization for cardiac and hemodynamic support. Per cardiology team, patient should be transferred to higher level of care for high-risk PCI with surgical back up. Patient also would be candidate for heart transplant at some point. Meanwhile, if patient cant be transfered to [facility], cardiology team will be doing Impela device placement with high risk PCI. patient seen and examined at bedside. [place] this morning underwent high risk PCI with impella device placement during PCI were LAD and RCA were successfully revascularized. Impella device was removed after procedure was performed. Patient was kept on dobutamine drip but heparin drip was discontinued and the patient was started onentresto 0.5 tabs b.i.d., empagliflozin 10 mg daily, atorvastatin 80 mg daily, ezetimibe 10 mg daily. Patient also received a loading dose of Plavix 600 mg and aspirin 325 mg. Tomorrow patient will be restarted back on clopidogrel 75 mg daily and aspirin 81 mg daily. Patient has total ins of 1484 and total out of 4480 for negative balance of 2995 the last 24 hours. Patient denied chest pain, chest tightness, shortness of breath, peripheral edema or any new symptoms. Patient is hemodynamically stable at this time. ROS Constitutional: Denies weight loss, fever and chills. HEENT: Denies changes in vision and hearing. Respiratory: Denies shortness of breath and cough Cardiovascular: Denies chest discomfort or palpitations GI: Denies abdominal pain, nausea, vomiting and diarrhea. : Denies dysuria and urinary frequency. Musculoskeletal: Denies myalgias and joint pain Skin: Denies rash and pruritus. Neurological: Denies dizziness, headache, vision or hearing problems Objective vital signs Vital Sign Date Time Temp Pulse Resp B/P (MAP) Pulse Ox O2 Delivery O2 Flow Rate FiO2 02/22/25 11:15 106 13 114/77 (89) 98 02/22/25 10:00 Nasal Cannula* 2 28 02/22/25 08:45 98.3 98.3 Total Intake and Output 02/21/25 02/21/25 02/22/25 15:00 23:00 07:00 Intake Total 853.824 ml 426.052 ml 177.956 ml Output Total 1725 ml 1800 ml 505 ml Balance -871.176 ml -1373.948 ml -327.044 ml medications Current Medications Medications Dose Ordered Sig/Shanika Route Start Time Stop Time Status Last Admin Dose Admin Nitroglycerin 0.4 mg Q5MINP PRN SL 02/17/25 03:15 Morphine Sulfate 2 mg Q30M PRN IV 02/17/25 03:15 Empaglifozin 10 mg DAILY PO 02/17/25 10:00 02/22/25 10:15 10 MG Furosemide 20 mg BIDD IV 02/17/25 18:00 02/22/25 05:33 20 MG Diagnostic Test (Pha) 1 strip ACHS 02/17/25 22:00 02/22/25 06:31 1 STRIP Insulin Human Regular ACHS SC 02/17/25 22:00 02/21/25 21:59 3 UNITS Dextrose 50 ml UD PRN IV 02/17/25 17:30 Insulin Glargine 10 units DAILY@1000 SC 02/18/25 10:00 02/22/25 10:25 10 UNITS Atorvastatin Calcium 80 mg HS PO 02/18/25 22:00 02/21/25 21:58 80 MG Acetaminophen 325 mg Q4HP PRN PO 02/18/25 10:00 02/20/25 00:52 325 MG Ceftriaxone Sodium 50 ml @ 100 mls/hr DAILY@09 IV 02/19/25 09:00 02/22/25 10:03 100 MLS/HR Sennosides 8.6 mg HS PO 02/18/25 22:00 02/21/25 21:58 8.6 MG Dobutamine HCl/ Dextrose 250 ml @ 15.228 mls/ hr [id number] IV 02/19/25 15:45 02/22/25 10:34 15.228 MLS/HR Phenylephrine HCl 80 mg/Sodium Chloride 250 ml @ 1.875 mls/ hr Q24H IV 02/19/25 15:45 02/19/25 16:52 13.125 MLS/HR Sodium Chloride 10 ml QSHIFT@10,22 IV 02/19/25 22:00 02/22/25 10:10 10 ML Pantoprazole Sodium 40 mg DAILY IV 02/20/25 20:00 02/22/25 10:10 40 MG Aspirin 81 mg DAILY PO 02/22/25 10:00 Clopidogrel Bisulfate 75 mg DAILY PO 02/22/25 10:00 EZETIMIBE 10 mg DAILY PO 02/22/25 10:00 02/22/25 10:15 10 MG Sacubitril/ Valsartan 0.5 tab BID PO 02/22/25 10:00 02/22/25 10:19 0.5 TAB Examination Physical Examination General: Patient alert and oriented in person, place and time. Patient following commands. HEENT: Normocephalic, atraumatic, moist mucous membranes Respiratory/pulmonary: Slightly deacrease breath sounds on lung bases but otherwise grossly clear, no associated crackles or wheezes. Cardiovascular: Increased heart sounds S1 and S2 with no associated murmurs Abdomen: Abdomen nondistended, there is no pain to palpation in any of the abdominal quadrants, no palpable masses. Extremities: There is no peripheral edema present at the lower extremities. Skin: No rashes or pruritus, there is no sacral edema present at this time. Neurological: Intact cranial nerves with no focal neurologic deficits laboratory and microbiology Laboratory Tests 02/22/25 02:30 Test 02/22/25 02:30 Range/Units Serum Glucose 241 #H 74-106 mg/dL Microbiology Date/Time Source Procedure Growth Status 02/18/25 03:42 Nose MRSA Screen - Final Complete 02/17/25 18:20 Urine - [place] Urine Culture - Final Complete Problem List/Assessment/Plan Problem List/Assessment/Plan Assessment/plan Acute coronary syndrome with multivessel disease Acute on chronic systolic heart failure exacerbation (HFrEF 10%) Acute cardiogenic shock due to above Cardiogenic shock with intra- aortic balloon pump placement Severe dilated cardiomyopathy likely due to chronic ischemia? -S/P coronary angiogram RCA has a 99% stenosis. PDA has a 90% proximal ostial lesion. Circumflex artery has a proximal 50-60% stenosis. Left anterior descending (LAD) 99% subtotal stenosis. -S/P intra aortic balloon pump placement for cardiogenic/hemodynamic support -OFF vasopressors at this time. Phenylephrine was hold due to BP on normal range with previous mentioned meds/support. -Continue empaglifozin 10mg daily -repeated echocardiogram shows an LVEF of 20% -left heart catheterization was performed today with placement of Impella device before procedure. PCI was successfully done with reperfusion to the RCA and LAD. Impella device was removed after high-risk PCI -patient received a loading dose of aspirin 325 mg before procedure and Plavix 600 mg -discontinue heparin drip -dobutamine drip initially was continued after procedure but Cardiology he is planning to wean off shortly. -continue atorvastatin 80 mg daily -start ezetimibe 10 mg daily -start sacubitril valsartan 0.5 tabs b.i.d. -start aspirin 81 mg daily and clopidogrel 75 mg daily tomorrow -Monitor Ins and Outs (ins of 1484 and total out of 4480 for negative balance of 2995 the last 24 hours) HECTOR likely due to cardiogenic shock -initial BUN and creatinine were 21, 1.67 respectively. Current BUN 11, Cr 0.99. (resolved) -Continue cardiac support with intra-aortic balloon pump and dobutamine drip to maintain kidney perfusion -Monitor kidney function closely -Monitor electrolytes Severe pulmonary hypertension -Echo on 01/31/2025 shows remarkably dilated all cardiac chamber, severe pulmonary hypertension, RVSP was 56. -Monitor Type 2 diabetes mellitus with hyperglycemia -last hemoglobin A1c on 01/31/2025 showed 9.9% -continue mild sliding scale insulin -continue Lantus 10 units daily -monitor blood glucose closely Dyslipidemia -Continue atorvastatin 80mg daily Acute on chronic abdominal pain likely in the setting of GERD -continue pantoprazole 40mg daily Diet: Cardiac diet Lines: -PICC line on Left upper arm placed on 02/19/2025 Social history RBCs working on insurance. Goals of care discussed with the patient and at bedside for >45min, FULL CODE Plan discussed with Dr. 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
[2025-02-22] MEDS: DOBUTamine 1000MCG/ML 250 ML IV SCH (14:15)
--- NOTE | 2025-02-22 14:19 | CONS ---
Pharmacy Clinical Information: CHF FALL OUT From Heart Failure Fallout Report on CQM Application, OSCAR BRAGG, 39 with PMH of T2DM, CAD, HFrEF His home medications for heart failure include metoprolol succinate, empagliflozin, spironolactone and sacubitril-valsartan His inpatient medications only include sacubitril/valsartan, and empagliflozin His BP is normal and HR is high. potassium level is normal Consider adding metoprolol succinate to help with HR and spironolactone per 2021 AHA/ACC guidelines [facility] Feb 22, 2025 14:19
[2025-02-23] VITALS (97 sets, daily range): BP systolic 73–101; BP diastolic 40–69; PULSE 86–123; RESP 14–35; TEMP 97.1–98.6; O2SAT 93–100
[2025-02-23 03:18] LABS: Hematocrit 42.2 % (41.0-53.0); Hemoglobin 14.7 g/dL (13.5-17.5); Mean Corpuscular Hemoglobin 29.4 pg (28.0-32.0); Mean Corpuscular Volume 84.8 fL (80.0-100.0); Nucleated Red Blood Cells % 0.1 %
[2025-02-23 03:32] LABS: Alanine Aminotransferase 13 U/L (7-40); Albumin 4.3 g/dL (3.2-4.8); Alkaline Phosphatase 69 U/L (46-116); Anion Gap 11 (5-15); BUN/Creatinine Ratio 18.1 (10.0-20.0); Bilirubin, Total 1.2 mg/dL (0.2-1.0); Blood Urea Nitrogen 17 mg/dL (9-23); Calcium 9.2 mg/dL (8.7-10.4); Carbon Dioxide 27 mmol/L (20-31); Chloride 98 mmol/L (98-107); Glucose 106 mg/dL (74-106); Potassium 3.9 mmol/L (3.5-5.1); Sodium 136 mmol/L (136-145); Total Protein 6.9 g/dL (5.7-8.2)
--- NOTE | 2025-02-23 05:29 | DVH ---
CHEST RADIOGRAPH Indication: reeval lung parenchyma Technique: Single frontal view of the chest was obtained COMPARISON: XY CHEST PORTABLE on DOS: 02/22/25, XY CHEST XRAY 1 VIEW on DOS: 02/21/25, XY CHEST PORTABL E on DOS: 02/20/25, XY CHEST PORTABLE on DOS: 02/19/25, XY CHEST XRAY 1 VIEW on DOS: 02/18/25 FINDINGS: Lines and Tubes: Left peripherally inserted central catheter unchanged. Lungs: Stable appearing small bilateral pleural effusions and diffuse increased prominence of the pul monary vasculature. No pneumothorax. Cardiomediastinal contours: Unremarkable Bones: Unremarkable IMPRESSION: 1. Stable bilateral pleural effusions and diffuse increased prominence of the pulmonary vasculature. 2. Left PICC unchanged.
[2025-02-23] MEDS: DOBUTamine 1000MCG/ML 250 ML IV SCH (09:50)
--- NOTE | 2025-02-23 09:53 | DVHPNRES ---
Progress Note Date Seen: Feb 23, 2025 Resident Creating Document: GIORGIO VASQUEZ RESIDENT Has the PT tested + for MRSA If YES, has PT been informed?: No Medical Necessity Reason Pt with a Central, PICC or Fol: No Subjective Review of Systems This is a 39-year-old male with past medical history of DM 2, CHF with reduced EF came to ED with the complain of epigastric and retrosternal pain for 10 days which is worsen for last 3 days, localized, occasionally radiate on the back, sometimes pressure-like sensation, the patient rated the pain as 7/10 intensity, aggravated on any kind of exertion and mildly relieved on rest. Patient reports having shortness of breaths with the same duration which is also increase on minimal exertion or activity. Patient reported feeling fatigue with occasional dizziness, loss of appetite, decreased urination, orthopnea and bilateral leg swelling. Patient was recently discharged on 02/03/2025 with diagnosed acute on chronic systolic heart failure. CT of the abdomen and pelvis without contrast on previous admission showed a Large bilateral pleural effusions, [id number]-[id number]-left, with adjacent atelectasis and lobar collapse. Cardiomegaly and trace pericardial effusion. There was also Moderate pericholecystic edema and Moderate abdominopelvic ascites. Echo on 01/31/2025 shows remarkably dilated all cardiac chamber, severe LV and RV with global hypokinesis, left ventricular ejection fraction only 10%, severe MR and TR, and severe pulmonary hypertension. Patient currently denies any cough, headache, nausea, vomiting, diarrhea, dysuria. Patient was admitted for left heart cath which showed multivessel disease on the RCA, CX, LAD and PDA. An intra aortic balloon pump was placed after left heart catheterization for cardiac and hemodynamic support. Per cardiology team, patient should be transferred to higher level of care for high-risk PCI with surgical back up. Patient also would be candidate for heart transplant at some point. Meanwhile, if patient cant be transfered to [facility], cardiology team will be doing Impela device placement with high risk PCI. Patient seen and examined at bedside. Yesterday high-risk PCI was performed to LAD and RCA which both were stented. Impella device was removed after PCI procedure. Patient was placed on dobutamine drip which was increased to 5 mcg/kg per minute. Patient is currently hemodynamically stable, patient denies chest pain, shortness of breath, chest tightness, peripheral edema or any other associated symptoms. We will discuss with Cardiology the possibility of weaning off dobutamine at this time. Otherwise, we will continue current medical management. ROS Constitutional: Denies weight loss, fever and chills. HEENT: Denies changes in vision and hearing. Respiratory: Denies shortness of breath and cough Cardiovascular: Denies chest discomfort or palpitations GI: Denies abdominal pain, nausea, vomiting and diarrhea. : Denies dysuria and urinary frequency. Musculoskeletal: Denies myalgias and joint pain Skin: Denies rash and pruritus. Neurological: Denies dizziness, headache, vision or hearing problems Objective vital signs Vital Sign Date Time Temp Pulse Resp B/P (MAP) Pulse Ox O2 Delivery O2 Flow Rate FiO2 02/23/25 08:15 104 22 90/59 (69) 99 02/23/25 08:00 Nasal Cannula* 2 28 02/23/25 08:00 97.8 97.8 Total Intake and Output 02/22/25 02/22/25 02/23/25 15:00 23:00 07:00 Intake Total 156.596 ml 371.824 ml 368.268 ml Output Total 510 ml 1100 ml 800 ml Balance -353.404 ml -728.176 ml -431.732 ml medications Current Medications Medications Dose Ordered Sig/Shanika Route Start Time Stop Time Status Last Admin Dose Admin Nitroglycerin 0.4 mg Q5MINP PRN SL 02/17/25 03:15 Morphine Sulfate 2 mg Q30M PRN IV 02/17/25 03:15 Empaglifozin 10 mg DAILY PO 02/17/25 10:00 02/22/25 10:15 10 MG Furosemide 20 mg BIDD IV 02/17/25 18:00 02/23/25 05:53 20 MG Diagnostic Test (Pha) 1 strip ACHS 02/17/25 22:00 02/23/25 05:59 1 STRIP Insulin Human Regular ACHS SC 02/17/25 22:00 02/22/25 22:38 3 UNITS Dextrose 50 ml UD PRN IV 02/17/25 17:30 Insulin Glargine 10 units DAILY@1000 SC 02/18/25 10:00 02/22/25 10:25 10 UNITS Atorvastatin Calcium 80 mg HS PO 02/18/25 22:00 02/22/25 22:31 80 MG Acetaminophen 325 mg Q4HP PRN PO 02/18/25 10:00 02/20/25 00:52 325 MG Sennosides 8.6 mg HS PO 02/18/25 22:00 02/22/25 22:30 8.6 MG Sodium Chloride 10 ml QSHIFT@10,22 IV 02/19/25 22:00 02/22/25 22:31 10 ML Pantoprazole Sodium 40 mg DAILY IV 02/20/25 20:00 02/22/25 10:10 40 MG Aspirin 81 mg DAILY PO 02/22/25 10:00 Clopidogrel Bisulfate 75 mg DAILY PO 02/22/25 10:00 EZETIMIBE 10 mg DAILY PO 02/22/25 10:00 02/22/25 10:15 10 MG Sacubitril/ Valsartan 0.5 tab BID PO 02/22/25 10:00 02/22/25 22:31 0.5 TAB Dobutamine HCl/ Dextrose 250 ml @ 15.228 mls/ hr [id number] IV 02/23/25 09:00 Examination Physical Examination General: Patient alert and oriented in person, place and time. Patient following commands. HEENT: Normocephalic, atraumatic, moist mucous membranes Respiratory/pulmonary: Slightly deacrease breath sounds on lung bases but otherwise grossly clear, no associated crackles or wheezes. Cardiovascular: Increased heart sounds S1 and S2 with no associated murmurs Abdomen: Abdomen nondistended, there is no pain to palpation in any of the abdominal quadrants, no palpable masses. Extremities: There is no peripheral edema present at the lower extremities. Skin: No rashes or pruritus, there is no sacral edema present at this time. Neurological: Intact cranial nerves with no focal neurologic deficits laboratory and microbiology Laboratory Tests 02/23/25 02:40 Test 02/23/25 02:40 Range/Units Serum Glucose 106 # 74-106 mg/dL Microbiology Date/Time Source Procedure Growth Status 02/18/25 03:42 Nose MRSA Screen - Final Complete 02/17/25 18:20 Urine - [place] Urine Culture - Final Complete Problem List/Assessment/Plan Problem List/Assessment/Plan Assessment/plan Acute coronary syndrome with multivessel disease Acute on chronic systolic heart failure exacerbation (HFrEF 10%) Acute cardiogenic shock due to above Cardiogenic shock with intra- aortic balloon pump placement Severe dilated cardiomyopathy likely due to chronic ischemia? -S/P coronary angiogram RCA has a 99% stenosis. PDA has a 90% proximal ostial lesion. Circumflex artery has a proximal 50-60% stenosis. Left anterior descending (LAD) 99% subtotal stenosis. -S/P intra aortic balloon pump placement for cardiogenic/hemodynamic support -OFF vasopressors at this time. Phenylephrine was hold due to BP on normal range with previous mentioned meds/support. -Continue empaglifozin 10mg daily -repeated echocardiogram shows an LVEF of 20% -left heart catheterization was performed with placement of Impella device before procedure. PCI was successfully done with reperfusion to the RCA and LAD. Impella device was removed after high-risk PCI -we will try to wean off dobutamine drip today -continue atorvastatin 80 mg daily -continue ezetimibe 10 mg daily -continue sacubitril valsartan 0.5 tabs b.i.d. -continue aspirin 81 mg daily and clopidogrel 75 mg daily -Monitor Ins and Outs (ins of 1484 and total out of 4480 for negative balance of 2995 the last 24 hours) HECTOR likely due to cardiogenic shock -initial BUN and creatinine were 21, 1.67 respectively. Current BUN 11, Cr 0.99. (resolved) -Continue cardiac support with intra-aortic balloon pump and dobutamine drip to maintain kidney perfusion -Monitor kidney function closely -Monitor electrolytes Severe pulmonary hypertension -Echo on 01/31/2025 shows remarkably dilated all cardiac chamber, severe pulmonary hypertension, RVSP was 56. -Monitor Type 2 diabetes mellitus with hyperglycemia -last hemoglobin A1c on 01/31/2025 showed 9.9% -continue mild sliding scale insulin -continue Lantus 10 units daily -monitor blood glucose closely Dyslipidemia -Continue atorvastatin 80mg daily Acute on chronic abdominal pain likely in the setting of GERD -continue pantoprazole 40mg daily Diet: Cardiac diet Lines: -PICC line on Left upper arm placed on 02/19/2025 Social history RBCs working on insurance. Goals of care discussed with the patient and at bedside for >45min, FULL CODE Plan discussed with Dr. 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
--- NOTE | 2025-02-23 11:35 | DVHPN2 ---
Consult Progress Note Subjective Other Systems: Patient in sinus tachycardia on conveyor monitor at time of assessment. He denies any cardiac symptoms Objective vital signs Vital Sign Date Time Temp Pulse Resp B/P (MAP) Pulse Ox O2 Delivery O2 Flow Rate FiO2 02/23/25 10:30 107 20 100/62 (75) 98 02/23/25 10:00 Nasal Cannula* 2 28 02/23/25 08:00 97.8 97.8 Total Intake and Output 02/22/25 02/22/25 02/23/25 15:00 23:00 07:00 Intake Total 156.596 ml 371.824 ml 368.268 ml Output Total 510 ml 1100 ml 800 ml Balance -353.404 ml -728.176 ml -431.732 ml medications Current Medications Medications Dose Ordered Sig/Shanika Route Start Time Stop Time Status Last Admin Dose Admin Nitroglycerin 0.4 mg Q5MINP PRN SL 02/17/25 03:15 Morphine Sulfate 2 mg Q30M PRN IV 02/17/25 03:15 Empaglifozin 10 mg DAILY PO 02/17/25 10:00 02/23/25 09:52 10 MG Furosemide 20 mg BIDD IV 02/17/25 18:00 02/23/25 05:53 20 MG Diagnostic Test (Pha) 1 strip ACHS 02/17/25 22:00 02/23/25 05:59 1 STRIP Insulin Human Regular ACHS SC 02/17/25 22:00 02/22/25 22:38 3 UNITS Dextrose 50 ml UD PRN IV 02/17/25 17:30 Insulin Glargine 10 units DAILY@1000 SC 02/18/25 10:00 02/23/25 10:07 10 UNITS Atorvastatin Calcium 80 mg HS PO 02/18/25 22:00 02/22/25 22:31 80 MG Acetaminophen 325 mg Q4HP PRN PO 02/18/25 10:00 02/20/25 00:52 325 MG Sennosides 8.6 mg HS PO 02/18/25 22:00 02/22/25 22:30 8.6 MG Sodium Chloride 10 ml QSHIFT@10,22 IV 02/19/25 22:00 02/23/25 09:49 10 ML Pantoprazole Sodium 40 mg DAILY IV 02/20/25 20:00 7/24/25 09:49 40 MG Aspirin 81 mg DAILY PO 02/22/25 10:00 02/23/25 09:52 81 MG Clopidogrel Bisulfate 75 mg DAILY PO 02/22/25 10:00 02/23/25 09:53 75 MG EZETIMIBE 10 mg DAILY PO 02/22/25 10:00 02/23/25 09:49 10 MG Sacubitril/ Valsartan 0.5 tab BID PO 02/22/25 10:00 02/23/25 09:49 0.5 TAB Dobutamine HCl/ Dextrose 250 ml @ 15.228 mls/ hr [id number] IV 02/23/25 09:00 02/23/25 09:50 25.38 MLS/HR Examination: GENERAL:Normal, LUNGS:Normal, CVS:Normal, NEURO:Normal laboratory and microbiology Laboratory Tests 02/23/25 02:40 Test 02/23/25 02:40 Range/Units Serum Glucose 106 # 74-106 mg/dL Problem List/Assessment/Plan Problem List/Assessment/Plan Cardiogenic shock status post Impella device assisted high-risk PCI Severe multivessel coronary artery disease status post PTCA of the LAD/RCA x 2DES Acute on chronic decompensated HFrEF, NYHA Class III End-stage/dilated cardiomyopathy with LVEF at 10% (per ventriculography) Pulmonary hypertension, moderate degree Severe mitral/tricuspid valve regurgitation Cjk-wpvzbzs-xqvqlzfgo diabetes mellitus Dyslipidemia HECTOR on CKD Obesity Plan/Recommendation (Dr. Crawford) The patient with severe multivessel coronary artery disease and dilated cardiomyopathy with LVEF at 10% (per ventriculography) underwent a successful Impella device assisted high-risk PTCA and stenting of the LAD x 1 ANN MARIE and RCA x 1 ANN MARIE (see surgical report). Continue dual antiplatelet therapy with Plavix and aspirin. Continue guideline directed medical therapy for CHF as tolerated including ARNI (Entresto 24mg/26mg x 0.5 tab qd samples provided for a total supply of three months) and SGLT2i. We will initiate beta-mark once patient off of dobutamine drip. Add MRA (spironolactone) if tolerated by blood pressure. Continue statin and ezetimibe therapy. Continue Lasix therapy, strict I&Os, daily weight, and fluid restrictions. Monitor ECG changes closely and notify. Monitor right groin area closely and apply pressure accordingly, notify cardiology of any s/s of bleed. The patient can benefit from eventual lipoprotein studies. He will need referral for heart transplant evaluation post-procedure. Further recommendations per clinical course. Thank you for allowing us to participate in this patient's care. Please call if you have any questions or concerns. Critical care time: 40 min. This medical document was created using an electronic medical record system with voice recognition software and computerized dictation system. Although this document has been carefully reviewed, there might still be some phonetic and typographical errors. Occasional wrong-word or ``sound-alike substitutions may have occurred due to the inherent limitations of voice recognition software. These areas are purely typographical due to imperfections of the software programs and do not reflect any compromise in the patient's medical care. Please read the chart carefully and recognize, using context, where these substitutions have occurred. Plan discussed with: Patient, Spouse Dietary Evaluation Review Comments: 1) [facility] + 2gm Na diet 2) Refer Materials Planning Manager on DC Expected Outcomes/Goals: To meet >75% estimated needs Fu 3-5 days Date of Service: Feb 23, 2025 Billing Provider: MAXIMINO PAZ Common Visit Codes: [id number] CARE 30-74 MIN MAXIMINO PAZ Feb 23, 2025 11:34
[2025-02-24] VITALS (104 sets, daily range): BP systolic 84–105; BP diastolic 51–81; PULSE 85–139; RESP 13–29; TEMP 98.1–98.6; O2SAT 93–99
[2025-02-24 03:50] LABS: Hematocrit 40.5 % (41.0-53.0); Hemoglobin 13.8 g/dL (13.5-17.5); Mean Corpuscular Hemoglobin 28.9 pg (28.0-32.0); Mean Corpuscular Volume 84.6 fL (80.0-100.0); Nucleated Red Blood Cells % 0.2 %
[2025-02-24 04:00] LABS: Anion Gap 9 (5-15); Carbon Dioxide 30 mmol/L (20-31); Potassium 4.1 mmol/L (3.5-5.1)
[2025-02-24 04:06] LABS: BUN/Creatinine Ratio 21.2 (10.0-20.0); Blood Urea Nitrogen 22 mg/dL (9-23)
[2025-02-24 04:22] LABS: Calcium 8.7 mg/dL (8.7-10.4); Chloride 97 mmol/L (98-107); Glucose 137 mg/dL (74-106); Sodium 136 mmol/L (136-145)
--- NOTE | 2025-02-24 08:32 | DVHPN2 ---
Consult Progress Note Subjective Other Systems: Patient in sinus tachycardia at time of assessment Denies any cardiac symptoms. Objective vital signs Vital Sign Date Time Temp Pulse Resp B/P (MAP) Pulse Ox O2 Delivery O2 Flow Rate FiO2 02/24/25 08:00 101 20 97 Nasal Cannula* 2 28 02/24/25 08:00 95/59 (71) 02/24/25 04:00 98.1 98.1 Total Intake and Output 02/23/25 02/23/25 02/24/25 15:00 23:00 07:00 Intake Total 441.612 ml 852.79672 ml 514.104 ml Output Total 1000 ml 1350 ml Balance 441.612 ml -147.51026 ml -835.896 ml medications Current Medications Medications Dose Ordered Sig/Shanika Route Start Time Stop Time Status Last Admin Dose Admin Nitroglycerin 0.4 mg Q5MINP PRN SL 02/17/25 03:15 Morphine Sulfate 2 mg Q30M PRN IV 02/17/25 03:15 Empaglifozin 10 mg DAILY PO 02/17/25 10:00 02/23/25 09:52 10 MG Furosemide 20 mg BIDD IV 02/17/25 18:00 02/24/25 06:01 20 MG Diagnostic Test (Pha) 1 strip ACHS 02/17/25 22:00 02/24/25 06:00 1 STRIP Insulin Human Regular ACHS SC 02/17/25 22:00 02/24/25 06:00 2 UNITS Dextrose 50 ml UD PRN IV 02/17/25 17:30 Insulin Glargine 10 units DAILY@1000 SC 02/18/25 10:00 02/23/25 10:07 10 UNITS Atorvastatin Calcium 80 mg HS PO 02/18/25 22:00 02/23/25 21:34 80 MG Acetaminophen 325 mg Q4HP PRN PO 02/18/25 10:00 02/20/25 00:52 325 MG Sennosides 8.6 mg HS PO 02/18/25 22:00 02/23/25 21:34 8.6 MG Sodium Chloride 10 ml QSHIFT@10,22 IV 02/19/25 22:00 02/23/25 17:46 10 ML Pantoprazole Sodium 40 mg DAILY IV 02/20/25 20:00 02/23/25 09:49 40 MG Aspirin 81 mg DAILY PO 02/22/25 10:00 02/23/25 09:52 81 MG Clopidogrel Bisulfate 75 mg DAILY PO 02/22/25 10:00 02/23/25 09:53 75 MG EZETIMIBE 10 mg DAILY PO 02/22/25 10:00 02/23/25 09:49 10 MG Sacubitril/ Valsartan 0.5 tab BID PO 02/22/25 10:00 02/23/25 09:49 0.5 TAB Dobutamine HCl/ Dextrose 250 ml @ 15.228 mls/ hr [id number] IV 02/23/25 09:00 02/24/25 02:05 45.684 MLS/HR Examination: GENERAL:Normal, LUNGS:Normal, CVS:Normal, NEURO:Normal laboratory and microbiology Laboratory Tests 02/24/25 03:19 Test 02/24/25 03:19 Range/Units Serum Glucose 137 H 74-106 mg/dL Problem List/Assessment/Plan Problem List/Assessment/Plan Cardiogenic shock status post Impella device assisted high-risk PCI Severe multivessel coronary artery disease status post PTCA of the LAD/RCA x 2DES Acute on chronic decompensated HFrEF, NYHA Class III End-stage/dilated cardiomyopathy with LVEF at 10% (per ventriculography) Pulmonary hypertension, moderate degree Severe mitral/tricuspid valve regurgitation Irw-bmmizij-tqackkolk diabetes mellitus Dyslipidemia HECTOR on CKD Obesity Plan/Recommendation (Dr. Crawford) The patient with severe multivessel coronary artery disease and dilated cardiomyopathy with LVEF at 10% (per ventriculography) underwent a successful Impella device assisted high-risk PTCA and stenting of the LAD x 1 ANN MARIE and RCA x 1 ANN MARIE (see surgical report). Continue dual antiplatelet therapy with Plavix and aspirin. Continue guideline directed medical therapy for CHF as tolerated including ARNI (Entresto 24mg/26mg x 0.5 tab qd samples provided for a total supply of three months) and SGLT2i. We will initiate beta-mark once patient off of dobutamine drip. Add MRA (spironolactone) if tolerated by blood pressure. Continue statin and ezetimibe therapy. Continue Lasix therapy, strict I&Os, daily weight, and fluid restrictions. Monitor ECG changes closely and notify. Monitor right groin area closely and apply pressure accordingly, notify cardiology of any s/s of bleed. The patient can benefit from eventual lipoprotein studies. He will need referral for heart transplant evaluation post-procedure. Further recommendations per clinical course. Thank you for allowing us to participate in this patient's care. Please call if you have any questions or concerns. Critical care time: 40 min. This medical document was created using an electronic medical record system with voice recognition software and computerized dictation system. Although this document has been carefully reviewed, there might still be some phonetic and typographical errors. Occasional wrong-word or ``sound-alike substitutions may have occurred due to the inherent limitations of voice recognition software. These areas are purely typographical due to imperfections of the software programs and do not reflect any compromise in the patient's medical care. Please read the chart carefully and recognize, using context, where these substitutions have occurred. Plan discussed with: Patient Dietary Evaluation Review Comments: 1) [facility] Na diet 2) Refer Medical Advisor on DC Expected Outcomes/Goals: To meet >75% estimated needs Fu 3-5 days Date of Service: Feb 24, 2025 Billing Provider: MAXIMINO PAZ Common Visit Codes: [id number] CARE 30-74 MIN MAXIMINO PAZ Feb 24, 2025 08:31
--- NOTE | 2025-02-24 14:00 | DVHPNRES ---
Progress Note Date Seen: Feb 24, 2025 Resident Creating Document: GIORGIO VASQUEZ RESIDENT Has the PT tested + for MRSA If YES, has PT been informed?: No Medical Necessity Reason Pt with a Central, PICC or Fol: No Subjective Review of Systems This is a 39-year-old male with past medical history of DM 2, CHF with reduced EF came to ED with the complain of epigastric and retrosternal pain for 10 days which is worsen for last 3 days, localized, occasionally radiate on the back, sometimes pressure-like sensation, the patient rated the pain as 7/10 intensity, aggravated on any kind of exertion and mildly relieved on rest. Patient reports having shortness of breaths with the same duration which is also increase on minimal exertion or activity. Patient reported feeling fatigue with occasional dizziness, loss of appetite, decreased urination, orthopnea and bilateral leg swelling. Patient was recently discharged on 02/03/2025 with diagnosed acute on chronic systolic heart failure. CT of the abdomen and pelvis without contrast on previous admission showed a Large bilateral pleural effusions, dbwiv-muzqpyr-cuww-left, with adjacent atelectasis and lobar collapse. Cardiomegaly and trace pericardial effusion. There was also Moderate pericholecystic edema and Moderate abdominopelvic ascites. Echo on 01/31/2025 shows remarkably dilated all cardiac chamber, severe LV and RV with global hypokinesis, left ventricular ejection fraction only 10%, severe MR and TR, and severe pulmonary hypertension. Patient currently denies any cough, headache, nausea, vomiting, diarrhea, dysuria. Patient was admitted for left heart cath which showed multivessel disease on the RCA, CX, LAD and PDA. An intra aortic balloon pump was placed after left heart catheterization for cardiac and hemodynamic support. Per cardiology team, patient should be transferred to higher level of care for high-risk PCI with surgical back up. Patient also would be candidate for heart transplant at some point. Meanwhile, if patient cant be transfered to [facility], cardiology team will be doing Impela device placement with high risk PCI. Patient seen and examined at bedside. Still on dobutamine drip at 4 micrograms/kg/minute. Entresto doses were hold in the night and into this morning to try to wean off dobutamine drip. Patient is still in sinus tachycardia but no chest pain, chest tightness, shortness of breath or any other associated symptoms. Total of 1834 cc and out's of 2356 for a negative balance of 515 cc. We will decrease furosemide IV dosage to 20 mg p.o. daily. We will continue the patient on empagliflozin 10 mg daily, aspirin 81 mg daily, clopidogrel 75 mg daily. We will monitor blood pressure and try to wean off dobutamine. No additional concerns or symptoms reported by the patient or family. ROS Constitutional: Denies weight loss, fever and chills. HEENT: Denies changes in vision and hearing. Respiratory: Denies shortness of breath and cough Cardiovascular: Denies chest discomfort or palpitations GI: Denies abdominal pain, nausea, vomiting and diarrhea. : Denies dysuria and urinary frequency. Musculoskeletal: Denies myalgias and joint pain Skin: Denies rash and pruritus. Neurological: Denies dizziness, headache, vision or hearing problems Objective vital signs Vital Sign Date Time Temp Pulse Resp B/P (MAP) Pulse Ox O2 Delivery O2 Flow Rate FiO2 02/24/25 12:00 103 20 98 02/24/25 12:00 Nasal Cannula* 2 28 02/24/25 04:00 98.1 98.1 Total Intake and Output 02/23/25 02/23/25 02/24/25 15:00 23:00 07:00 Intake Total 441.612 ml 852.40754 ml 514.104 ml Output Total 1000 ml 1350 ml Balance 441.612 ml -147.64253 ml -835.896 ml medications Current Medications Medications Dose Ordered Sig/Shanika Route Start Time Stop Time Status Last Admin Dose Admin Nitroglycerin 0.4 mg Q5MINP PRN SL 02/17/25 03:15 Morphine Sulfate 2 mg Q30M PRN IV 02/17/25 03:15 Empaglifozin 10 mg DAILY PO 02/17/25 10:00 02/24/25 10:29 10 MG Diagnostic Test (Pha) 1 strip ACHS 02/17/25 22:00 02/24/25 11:32 1 STRIP Insulin Human Regular ACHS SC 02/17/25 22:00 02/24/25 11:36 3 UNITS Dextrose 50 ml UD PRN IV 02/17/25 17:30 Insulin Glargine 10 units DAILY@1000 SC 02/18/25 10:00 02/24/25 10:28 10 UNITS Atorvastatin Calcium 80 mg HS PO 02/18/25 22:00 02/23/25 21:34 80 MG Acetaminophen 325 mg Q4HP PRN PO 02/18/25 10:00 02/20/25 00:52 325 MG Sennosides 8.6 mg HS PO 02/18/25 22:00 02/23/25 21:34 8.6 MG Sodium Chloride 10 ml QSHIFT@10,22 IV 02/19/25 22:00 02/24/25 10:29 10 ML Pantoprazole Sodium 40 mg DAILY IV 02/20/25 20:00 02/24/25 10:29 40 MG Aspirin 81 mg DAILY PO 02/22/25 10:00 02/24/25 10:29 81 MG Clopidogrel Bisulfate 75 mg DAILY PO 02/22/25 10:00 02/24/25 10:29 75 MG EZETIMIBE 10 mg DAILY PO 02/22/25 10:00 02/24/25 10:28 10 MG Sacubitril/ Valsartan 0.5 tab BID PO 02/22/25 10:00 02/23/25 09:49 0.5 TAB Dobutamine HCl/ Dextrose 250 ml @ 15.228 mls/ hr [id number] IV 02/23/25 09:00 02/24/25 11:32 20.304 MLS/HR Furosemide 40 mg DAILY PO 02/25/25 10:00 Examination Physical Examination General: Patient alert and oriented in person, place and time. Patient following commands. HEENT: Normocephalic, atraumatic, moist mucous membranes Respiratory/pulmonary: Slightly deacrease breath sounds on lung bases but otherwise grossly clear, no associated crackles or wheezes. Cardiovascular: Increased heart sounds S1 and S2 with no associated murmurs Abdomen: Abdomen nondistended, there is no pain to palpation in any of the abdominal quadrants, no palpable masses. Extremities: There is no peripheral edema present at the lower extremities. Skin: No rashes or pruritus, there is no sacral edema present at this time. Neurological: Intact cranial nerves with no focal neurologic deficits laboratory and microbiology Laboratory Tests 02/24/25 03:19 Test 02/24/25 03:19 Range/Units Serum Glucose 137 H 74-106 mg/dL Microbiology Date/Time Source Procedure Growth Status 02/18/25 03:42 Nose MRSA Screen - Final Complete 02/17/25 18:20 Urine - [place] Urine Culture - Final Complete Problem List/Assessment/Plan Problem List/Assessment/Plan Assessment/plan Acute coronary syndrome with multivessel disease Acute on chronic systolic heart failure exacerbation (HFrEF 10%) Acute cardiogenic shock due to above Cardiogenic shock with intra- aortic balloon pump placement Severe dilated cardiomyopathy likely due to chronic ischemia? -S/P coronary angiogram RCA has a 99% stenosis. PDA has a 90% proximal ostial lesion. Circumflex artery has a proximal 50-60% stenosis. Left anterior descending (LAD) 99% subtotal stenosis. -S/P intra aortic balloon pump placement for cardiogenic/hemodynamic support -OFF vasopressors at this time. Phenylephrine was hold due to BP on normal range with previous mentioned meds/support. -Continue empaglifozin 10mg daily -repeated echocardiogram shows an LVEF of 20% -left heart catheterization was performed with placement of Impella device before procedure. PCI was successfully done with reperfusion to the RCA and LAD. Impella device was removed after high-risk PCI -we will try to wean off dobutamine drip today -Decrease furosemide to 20mg po daily -continue atorvastatin 80 mg daily -continue ezetimibe 10 mg daily -continue sacubitril valsartan 0.5 tabs b.i.d. -continue aspirin 81 mg daily and clopidogrel 75 mg daily -Monitor Ins and Outs (ins of 1834 and total out of 2356 for negative balance of 515 the last 24 hours) HECTOR likely due to cardiogenic shock -initial BUN and creatinine were 21, 1.67 respectively. Current BUN 11, Cr 0.99. (resolved) -Continue cardiac support with intra-aortic balloon pump and dobutamine drip to maintain kidney perfusion -Monitor kidney function closely -Monitor electrolytes Severe pulmonary hypertension -Echo on 01/31/2025 shows remarkably dilated all cardiac chamber, severe pulmonary hypertension, RVSP was 56. -Monitor Type 2 diabetes mellitus with hyperglycemia -last hemoglobin A1c on 01/31/2025 showed 9.9% -continue mild sliding scale insulin -continue Lantus 10 units daily -monitor blood glucose closely Dyslipidemia -Continue atorvastatin 80mg daily Acute on chronic abdominal pain likely in the setting of GERD -continue pantoprazole 40mg daily Diet: Cardiac diet Lines: -PICC line on Left upper arm placed on 02/19/2025 Social history RBCs working on insurance. Goals of care discussed with the patient and at bedside for >45min, FULL CODE Plan discussed with Dr. Muir Plan discussed with: Patient My Orders My Orders Orders - GIORGIO VASQUEZ Procedure Category Date Status Time Pt Request For Service PT 02/24/25 Logged 06:55 Communication Order ORDERS 02/24/25 Transmitted 06:56 Pt Request For Service PT 02/24/25 Logged 06:59 Furosemide Tablet PHA 02/25/25 In Process (Lasix Tablet) 10:00 Dietary Evaluation Review Comments: 1) Advance to [facility] [place] 60gm + 2gm Na diet 2) Refer Studio Potter on DC Expected Outcomes/Goals: To meet >75% estimated needs Fu 3-5 days Date of Service: Feb 24, 2025 Billing Provider: RAFI CAMPA MD Common Visit Codes: [id number] CARE 30-74 MIN GIORGIO VASQUEZ Feb 24, 2025 14:00 RAFI CAMPA MD Mar 01, 2025 01:37
[2025-02-25] VITALS (107 sets, daily range): BP systolic 78–108; BP diastolic 43–70; PULSE 81–116; RESP 12–30; TEMP 97.6–99.1; O2SAT 92–100
[2025-02-25 03:44] LABS: Hematocrit 38.9 % (41.0-53.0); Hemoglobin 13.4 g/dL (13.5-17.5); Mean Corpuscular Hemoglobin 29.1 pg (28.0-32.0); Mean Corpuscular Volume 84.6 fL (80.0-100.0); Nucleated Red Blood Cells % 0.1 %
[2025-02-25 03:57] LABS: Sodium 137 mmol/L (136-145)
[2025-02-25 03:58] LABS: Anion Gap 10 (5-15); Carbon Dioxide 30 mmol/L (20-31)
[2025-02-25 03:59] LABS: Calcium 9.8 mg/dL (8.7-10.4)
[2025-02-25 04:03] LABS: Chloride 97 mmol/L (98-107); Glucose 88 mg/dL (74-106); Potassium 3.5 mmol/L (3.5-5.1)
[2025-02-25 04:04] LABS: BUN/Creatinine Ratio 15.7 (10.0-20.0); Blood Urea Nitrogen 17 mg/dL (9-23); Magnesium 2.4 mg/dL (1.6-2.6)
[2025-02-25] MEDS: POTASSIUM CHL 20MEQ/100ML 100 ML IV SCH (04:27)
[2025-02-25] MEDS ORDERED: FUROSEMIDE 40 MG TAB PO SCH (10:00)
[2025-02-25] MEDS: FUROSEMIDE 20 MG TAB PO SCH (10:16)
--- NOTE | 2025-02-25 10:55 | DVHPNRES ---
Progress Note Date Seen: Feb 25, 2025 Resident Creating Document: GIORGIO VASQUEZ RESIDENT Has the PT tested + for MRSA If YES, has PT been informed?: No Medical Necessity Reason Pt with a Central, PICC or Fol: No Subjective Review of Systems This is a 39-year-old male with past medical history of DM 2, CHF with reduced EF came to ED with the complain of epigastric and retrosternal pain for 10 days which is worsen for last 3 days, localized, occasionally radiate on the back, sometimes pressure-like sensation, the patient rated the pain as 7/10 intensity, aggravated on any kind of exertion and mildly relieved on rest. Patient reports having shortness of breaths with the same duration which is also increase on minimal exertion or activity. Patient reported feeling fatigue with occasional dizziness, loss of appetite, decreased urination, orthopnea and bilateral leg swelling. Patient was recently discharged on 02/03/2025 with diagnosed acute on chronic systolic heart failure. CT of the abdomen and pelvis without contrast on previous admission showed a Large bilateral pleural effusions, [id number], with adjacent atelectasis and lobar collapse. Cardiomegaly and trace pericardial effusion. There was also Moderate pericholecystic edema and Moderate abdominopelvic ascites. Echo on 01/31/2025 shows remarkably dilated all cardiac chamber, severe LV and RV with global hypokinesis, left ventricular ejection fraction only 10%, severe MR and TR, and severe pulmonary hypertension. Patient currently denies any cough, headache, nausea, vomiting, diarrhea, dysuria. Patient was admitted for left heart cath which showed multivessel disease on the RCA, CX, LAD and PDA. An intra aortic balloon pump was placed after left heart catheterization for cardiac and hemodynamic support. Per cardiology team, patient should be transferred to higher level of care for high-risk PCI with surgical back up. Patient also would be candidate for heart transplant at some point. Meanwhile, if patient cant be transfered to [facility], cardiology team will be doing Impela device placement with high risk PCI. Patient seen and examined at bedside. Patient denies chest tightness, chest pain, shortness of breath, fever/chills. Dobutamine drip was discontinued overnight and patient has been so far approximately 12 hours of dobutamine maintaining a blood pressure ranging in the 95/65s. We will hold Entresto at this time since blood pressure is in the lower side and might not tolerate it. Otherwise we will continue with the empagliflozin 10 mg daily and furosemide 20 mg p.o. daily. Patient is currently working with physical therapy, walking without complications and without chest pain or shortness of breaths during exertion. Patient feels well overall. We will consider downgrade to telemetry by the end of the day. ROS Constitutional: Denies weight loss, fever and chills. HEENT: Denies changes in vision and hearing. Respiratory: Denies shortness of breath and cough Cardiovascular: Denies chest discomfort or palpitations GI: Denies abdominal pain, nausea, vomiting and diarrhea. : Denies dysuria and urinary frequency. Musculoskeletal: Denies myalgias and joint pain Skin: Denies rash and pruritus. Neurological: Denies dizziness, headache, vision or hearing problems Objective vital signs Vital Sign Date Time Temp Pulse Resp B/P (MAP) Pulse Ox O2 Delivery O2 Flow Rate FiO2 02/25/25 10:30 104 22 97/62 (74) 96 02/25/25 08:00 98.4 98.4 02/25/25 05:57 Nasal Cannula* 2 28 Total Intake and Output 02/24/25 02/24/25 02/25/25 15:00 23:00 07:00 Intake Total 162.432 ml 601.824 ml 100 ml Output Total 1751 ml 901 ml Balance 162.432 ml -1149.176 ml -801 ml medications Current Medications Medications Dose Ordered Sig/Shanika Route Start Time Stop Time Status Last Admin Dose Admin Nitroglycerin 0.4 mg Q5MINP PRN SL 02/17/25 03:15 Morphine Sulfate 2 mg Q30M PRN IV 02/17/25 03:15 Empaglifozin 10 mg DAILY PO 02/17/25 10:00 02/25/25 10:16 10 MG Diagnostic Test (Pha) 1 strip ACHS 02/17/25 22:00 02/25/25 06:06 1 STRIP Insulin Human Regular ACHS SC 02/17/25 22:00 02/24/25 17:00 3 UNITS Dextrose 50 ml UD PRN IV 02/17/25 17:30 Insulin Glargine 10 units DAILY@1000 SC 02/18/25 10:00 02/25/25 10:22 10 UNITS Atorvastatin Calcium 80 mg HS PO 02/18/25 22:00 02/24/25 22:05 80 MG Acetaminophen 325 mg Q4HP PRN PO 02/18/25 10:00 02/20/25 00:52 325 MG Sennosides 8.6 mg HS PO 02/18/25 22:00 02/24/25 22:05 8.6 MG Sodium Chloride 10 ml QSHIFT@10,22 IV 02/19/25 22:00 02/25/25 10:18 10 ML Pantoprazole Sodium 40 mg DAILY IV 02/20/25 20:00 02/25/25 10:17 40 MG Aspirin 81 mg DAILY PO 02/22/25 10:00 02/25/25 10:17 81 MG Clopidogrel Bisulfate 75 mg DAILY PO 02/22/25 10:00 02/25/25 10:17 75 MG EZETIMIBE 10 mg DAILY PO 02/22/25 10:00 02/25/25 10:15 10 MG Sacubitril/ Valsartan 0.5 tab BID PO 02/22/25 10:00 02/23/25 09:49 0.5 TAB Dobutamine HCl/ Dextrose 250 ml @ 15.228 mls/ hr [id number] IV 02/23/25 09:00 02/24/25 11:32 20.304 MLS/HR Furosemide 20 mg DAILY PO 02/25/25 10:00 02/25/25 10:16 20 MG Examination Physical Examination General: Patient alert and oriented in person, place and time. Patient following commands. HEENT: Normocephalic, atraumatic, moist mucous membranes Respiratory/pulmonary: Slightly deacrease breath sounds on lung bases but otherwise grossly clear, no associated crackles or wheezes. Cardiovascular: Increased heart sounds S1 and S2 with no associated murmurs Abdomen: Abdomen nondistended, there is no pain to palpation in any of the abdominal quadrants, no palpable masses. Extremities: There is no peripheral edema present at the lower extremities. Skin: No rashes or pruritus, there is no sacral edema present at this time. Neurological: Intact cranial nerves with no focal neurologic deficits laboratory and microbiology Laboratory Tests 02/25/25 02:50 Test 02/25/25 02:50 Range/Units Serum Glucose 88 74-106 mg/dL Microbiology Date/Time Source Procedure Growth Status 02/18/25 03:42 Nose MRSA Screen - Final Complete 02/17/25 18:20 Urine - [place] Urine Culture - Final Complete Problem List/Assessment/Plan Problem List/Assessment/Plan Assessment/plan Acute coronary syndrome with multivessel disease Acute on chronic systolic heart failure exacerbation (HFrEF 10%) Acute cardiogenic shock due to above Cardiogenic shock with intra- aortic balloon pump placement Severe dilated cardiomyopathy likely due to chronic ischemia? -S/P coronary angiogram RCA has a 99% stenosis. PDA has a 90% proximal ostial lesion. Circumflex artery has a proximal 50-60% stenosis. Left anterior descending (LAD) 99% subtotal stenosis. -S/P intra aortic balloon pump placement for cardiogenic/hemodynamic support -OFF vasopressors at this time. Phenylephrine was hold due to BP on normal range with previous mentioned meds/support. -Continue empaglifozin 10mg daily -repeated echocardiogram shows an LVEF of 20% -left heart catheterization was performed with placement of Impella device before procedure. PCI was successfully done with reperfusion to the RCA and LAD. Impella device was removed after high-risk PCI -we will try to wean off dobutamine drip today -Continue furosemide to 20mg po daily -continue atorvastatin 80 mg daily -continue ezetimibe 10 mg daily -Discontinue sacubitril valsartan 0.5 tabs b.i.d. -continue aspirin 81 mg daily and clopidogrel 75 mg daily -Monitor Ins and Outs (ins of 1834 and total out of 2356 for negative balance of 515 the last 24 hours) HECTOR likely due to cardiogenic shock -initial BUN and creatinine were 21, 1.67 respectively. Current BUN 11, Cr 0.99. (resolved) -Continue cardiac support with intra-aortic balloon pump and dobutamine drip to maintain kidney perfusion -Monitor kidney function closely -Monitor electrolytes Severe pulmonary hypertension -Echo on 01/31/2025 shows remarkably dilated all cardiac chamber, severe pulmonary hypertension, RVSP was 56. -Monitor Type 2 diabetes mellitus with hyperglycemia -last hemoglobin A1c on 01/31/2025 showed 9.9% -continue mild sliding scale insulin -continue Lantus 10 units daily -monitor blood glucose closely Dyslipidemia -Continue atorvastatin 80mg daily Acute on chronic abdominal pain likely in the setting of GERD -continue pantoprazole 40mg daily Diet: Cardiac diet Lines: -PICC line on Left upper arm placed on 02/19/2025 Goals of care discussed with the patient and at bedside for >45min, FULL CODE Plan discussed with Dr. Kim Plan discussed with: Patient My Orders My Orders Orders - GIORGIO VASQUEZ Procedure Category Date Status Time Furosemide Tablet PHA 02/25/25 In Process (Lasix Tablet) 10:00 Dietary Evaluation Review Comments: 1) Advance to [facility] 60gm + 2gm Na diet 2) Refer [employer] on DC Expected Outcomes/Goals: To meet >75% estimated needs Fu 3-5 days GIORGIO VASQUEZ RESIDENT Feb 25, 2025 10:55
--- NOTE | 2025-02-25 19:09 | DVHPN2 ---
Subjective Denies chest pain or shortness of breath No cardiac events reported Changes from previous H/P or p: No Changes Eyes: No Pain, No Vision change, No Conjunctivae inflammation, No Eyelid inflammation, No Other, No Redness ENT: No Ear pain, No Ear discharge, No Nose pain, No Nose discharge, No Nose congestion, No Mouth pain, No Mouth swelling, No Throat pain, No Throat swelling, No Other Cardiovascular: Chest Pain; No Palpitations; Orthopnea; No Paroxysmal Noc. Dyspnea; Edema; No Lt Headedness, No Other Respiratory: No Cough, No Dry; Shortness of breath, SOB with excertion; No Wheezing, No Hemoptysis, No Pleuritic Pain, No Sputum, No Other Gastrointestinal: No Nausea, No Vomiting; Abdominal Pain; No Diarrhea, No Constipation, No Melena, No Hematochezia, No Other Genitourinary: No Dysuria, No Frequency, No Incontinence, No Hematuria, No Retention; Other (Decreased volume of urination) Musculoskeletal: No other, No neck pain, No shoulder pain, No arm pain, No back pain, No hand pain, No leg pain, No foot pain Skin: No Rash, No Lesions, No Jaundice, No Bruising, No Other Objective Vitals Vital Signs Date Time Temp Pulse Resp B/P (MAP) Pulse Ox O2 Delivery O2 Flow Rate FiO2 02/25/25 17:45 98 24 80/55 (63) 97 02/25/25 17:00 99.1 99.1 02/25/25 16:00 Nasal Cannula* 2 28 Intake/Output Intake and Output 02/25/25 07:00 Intake Total 864.256 ml Output Total 2652 ml Balance -1787.744 ml Intake Oral 480 ml IV Total 384.256 ml Output Urine Total 2650 ml Stool Total 2 ml General Appearance: Oriented X3 Cardiovascular: Regular rate, Normal S1, Normal S2 Medications Current Medications Medications Dose Ordered Sig/Shanika Route Start Time Stop Time Status Last Admin Dose Admin Nitroglycerin 0.4 mg Q5MINP PRN SL 02/17/25 03:15 Morphine Sulfate 2 mg Q30M PRN IV 02/17/25 03:15 Empaglifozin 10 mg DAILY PO 02/17/25 10:00 02/25/25 10:16 10 MG Diagnostic Test (Pha) 1 strip ACHS 02/17/25 22:00 02/25/25 17:00 1 STRIP Insulin Human Regular ACHS SC 02/17/25 22:00 02/25/25 17:53 3 UNITS Dextrose 50 ml UD PRN IV 02/17/25 17:30 Insulin Glargine 10 units DAILY@1000 SC 02/18/25 10:00 02/25/25 10:22 10 UNITS Atorvastatin Calcium 80 mg HS PO 02/18/25 22:00 02/24/25 22:05 80 MG Acetaminophen 325 mg Q4HP PRN PO 02/18/25 10:00 02/20/25 00:52 325 MG Sennosides 8.6 mg HS PO 02/18/25 22:00 02/24/25 22:05 8.6 MG Sodium Chloride 10 ml QSHIFT@10,22 IV 02/19/25 22:00 02/25/25 10:18 10 ML Pantoprazole Sodium 40 mg DAILY IV 02/20/25 20:00 02/25/25 10:17 40 MG Aspirin 81 mg DAILY PO 02/22/25 10:00 02/25/25 10:17 81 MG Clopidogrel Bisulfate 75 mg DAILY PO 02/22/25 10:00 02/25/25 10:17 75 MG EZETIMIBE 10 mg DAILY PO 02/22/25 10:00 02/25/25 10:15 10 MG Dobutamine HCl/ Dextrose 250 ml @ 15.228 mls/ hr [id number] IV 02/23/25 09:00 02/24/25 11:32 20.304 MLS/HR Furosemide 20 mg DAILY PO 02/25/25 10:00 02/25/25 10:16 20 MG Laboratory Results Laboratory Tests 02/25/25 02:50 Chemistry Test 02/25/25 02:50 Calcium Level 9.8 mg/dL (8.7-10.4) Magnesium Level 2.4 mg/dL (1.6-2.6) Urinalysis Test 02/17/25 10:30 Urine Color Light-yellow (Yellow) Urine Clarity Clear (Clear) Urine pH 5.0 (5.0-9.0) Urine Specific [place] 1.018 (1.001-1.035) Urine Protein Negative (Negative) Urine Ketones Negative (Negative) Urine Blood Negative /uL (Negative) Urine Nitrite Negative (Negative) Urine Bilirubin Negative (Negative) Urine Urobilinogen Normal mg/dL (Negative) Urine Leukocyte Esterase Negative /uL (Negative) Urine RBC None seen /hpf (0 - 3) Urine Microscopic WBC /HPF (0-3) Urine Squamous Epithelial Cells Few /hpf (<5) Urine Bacteria None seen /hpf (None Seen) Urine Hyaline Casts Few /lpf (0 - 2) Urine Mucus Few (None Seen) Urine Glucose 4+ mg/dL (Normal) H Microbiology Microbiology Date/Time Source Procedure Growth Status 02/18/25 03:42 Nose MRSA Screen - Final Complete 02/17/25 18:20 Urine - [place] Urine Culture - Final Complete Assessment/Plan Assessment/Plan Problem List/Assessment/Plan Problem List/Assessment/Plan Cardiogenic shock status post Impella device assisted high-risk PCI Severe multivessel coronary artery disease status post PTCA of the LAD/RCA x 2DES Acute on chronic decompensated HFrEF, NYHA Class III End-stage/dilated cardiomyopathy with LVEF at 10% (per ventriculography) Pulmonary hypertension, moderate degree Severe mitral/tricuspid valve regurgitation Ffs-gwqrjkz-zpprikhwj diabetes mellitus Dyslipidemia HECTOR on CKD Obesity Plan/Recommendation (Dr. Kennedy) The patient with severe multivessel coronary artery disease and dilated cardiomyopathy with LVEF at 10% (per ventriculography) underwent a successful Impella device assisted high-risk PTCA and stenting of the LAD x 1 ANN MARIE and RCA x 1 ANN MARIE (see surgical report). Continue dual antiplatelet therapy with Plavix and aspirin. Continue guideline directed medical therapy for CHF as tolerated including ARNI (Entresto 24mg/26mg x 0.5 tab qd samples provided for a total supply of three months) and SGLT2i. We will initiate beta-mark once patient off of dobutamine drip. Add MRA (spironolactone) if tolerated by blood pressure. Continue statin and ezetimibe therapy. Continue Lasix therapy, strict I&Os, daily weight, and fluid restrictions. Monitor ECG changes closely and notify. Monitor right groin area closely and apply pressure accordingly, notify cardiology of any s/s of bleed. The patient can benefit from eventual lipoprotein studies. He will need referral for heart transplant evaluation post-procedure. Further recommendations per clinical course. Thank you for allowing us to participate in this patient's care. Please call if you have any questions or concerns. Critical care time: 40 min. This medical document was created using an electronic medical record system with voice recognition software and computerized dictation system. Although this document has been carefully reviewed, there might still be some phonetic and typographical errors. Occasional wrong-word or ``sound-alike substitutions may have occurred due to the inherent limitations of voice recognition software. These areas are purely typographical due to imperfections of the software programs and do not reflect any compromise in the patient's medical care. Please read the chart carefully and recognize, using context, where these substitutions have occurred. Plan discussed with: Patient Plan discussed with: Patient Date of Service: Feb 25, 2025 Billing Provider: TRENT KENNEDY Sr., MD Common Visit Codes: CONSULT ONLY Consultation Codes: [id number] CONSULT <45MIN RADHA GIRARD Feb 25, 2025 19:08
[2025-02-26] VITALS (59 sets, daily range): BP systolic 79–101; BP diastolic 51–72; PULSE 88–117; RESP 15–41; TEMP 97.2–98.5; O2SAT 95–100
[2025-02-26 03:38] LABS: Hematocrit 37.9 % (41.0-53.0); Hemoglobin 13.1 g/dL (13.5-17.5); Mean Corpuscular Hemoglobin 29.2 pg (28.0-32.0); Mean Corpuscular Volume 84.5 fL (80.0-100.0); Nucleated Red Blood Cells % 0.0 %
[2025-02-26 03:52] LABS: Calcium 9.5 mg/dL (8.7-10.4); Chloride 101 mmol/L (98-107); Potassium 3.8 mmol/L (3.5-5.1); Sodium 138 mmol/L (136-145)
[2025-02-26 03:53] LABS: Anion Gap 8 (5-15); Carbon Dioxide 29 mmol/L (20-31)
[2025-02-26 03:58] LABS: BUN/Creatinine Ratio 17.2 (10.0-20.0); Blood Urea Nitrogen 16 mg/dL (9-23); Glucose 83 mg/dL (74-106)
[2025-02-26 03:59] LABS: Magnesium 2.3 mg/dL (1.6-2.6)
[2025-02-26] MEDS: METOPROLOL TARTRATE 25 MG TAB PO ONE (12:15)
--- NOTE | 2025-02-26 18:03 | DVHPN2 ---
Consult Progress Note Date Seen: Feb 26, 2025 Subjective Patient reports: No new complaints, Feels better Review of Systems: HEENT:Normal, CVS:Normal (Patient has no significant symptomatology however is still objectively hypotensive he has denying any dizziness or lightheadedness), RESPIRATORY:Normal, GI:Normal, :Normal, MSK:Normal, NEURO:Normal Objective vital signs Vital Sign Date Time Temp Pulse Resp B/P (MAP) Pulse Ox O2 Delivery O2 Flow Rate FiO2 02/26/25 17:50 18 98 Room Air* 0 21 02/26/25 17:49 102 02/26/25 17:00 90/65 (73) 02/26/25 16:00 98.0 98.0 Total Intake and Output 02/25/25 02/25/25 02/26/25 15:00 23:00 07:00 Intake Total 650 ml 300 ml Output Total 700 ml 750 ml Balance -50 ml -450 ml medications Current Medications Medications Dose Ordered Sig/Shanika Route Start Time Stop Time Status Last Admin Dose Admin Nitroglycerin 0.4 mg Q5MINP PRN SL 02/17/25 03:15 Empaglifozin 10 mg DAILY PO 02/17/25 10:00 02/26/25 09:06 10 MG Diagnostic Test (Pha) 1 strip ACHS 02/17/25 22:00 02/26/25 17:10 1 STRIP Insulin Human Regular ACHS SC 02/17/25 22:00 02/25/25 21:48 2 UNITS Dextrose 50 ml UD PRN IV 02/17/25 17:30 Insulin Glargine 10 units DAILY@1000 SC 02/18/25 10:00 02/26/25 09:08 10 UNITS Atorvastatin Calcium 80 mg HS PO 02/18/25 22:00 02/25/25 21:45 80 MG Acetaminophen 325 mg Q4HP PRN PO 02/18/25 10:00 02/20/25 00:52 325 MG Sennosides 8.6 mg HS PO 02/18/25 22:00 02/25/25 21:45 8.6 MG Sodium Chloride 10 ml QSHIFT@10,22 IV 02/19/25 22:00 02/26/25 09:13 10 ML Pantoprazole Sodium 40 mg DAILY IV 02/20/25 20:00 02/26/25 09:12 40 MG Aspirin 81 mg DAILY PO 02/22/25 10:00 02/26/25 09:06 81 MG Clopidogrel Bisulfate 75 mg DAILY PO 02/22/25 10:00 02/26/25 09:06 75 MG EZETIMIBE 10 mg DAILY PO 02/22/25 10:00 02/26/25 09:07 10 MG Furosemide 20 mg DAILY PO 02/25/25 10:00 02/26/25 09:06 20 MG Examination: GENERAL:Normal, HEENT:Normal, NECK:Normal, LUNGS:Normal, LUNGS:Abnormal, CVS:Abnormal (Moderately hypotensive but tolerating medications and blood pressure well. He is warm and dry), SKIN:Normal, NEURO:Normal, :Normal laboratory and microbiology Laboratory Tests 02/26/25 02:45 Test 02/26/25 02:45 Range/Units Serum Glucose 83 74-106 mg/dL Problem List/Assessment/Plan Problem List/Assessment/Plan Severe ischemic cardiomyopathy. Status post PTCA and stenting of the LAD and RCA. Congestive heart failure with reduced ejection fraction diabetes mellitus. Hypertension. Hyperlipidemia. Plan discussed with: Patient, Spouse Dietary Evaluation Review Comments: 1) Advance to [facility] 60gm + 2gm Na diet 2) Refer Chief Crna on DC Expected Outcomes/Goals: To meet >75% estimated needs Fu 3-5 days Total Time (mins): 15 Date of Service: Feb 26, 2025 Billing Provider: TRENT KENNEDY Sr., MD Cardiology Common Codes: [id number] INP/OBS CARE (High), [id number] INP/OBS CARE(Mod) TRENT KENNEDY Sr., MD Feb 26, 2025 18:03
--- NOTE | 2025-02-26 18:13 | DVHPNRES ---
Progress Note Date Seen: Feb 26, 2025 Resident Creating Document: VAN DANIELS RESIDENT Has the PT tested + for MRSA If YES, has PT been informed?: No Medical Necessity Reason Pt with a Central, PICC or Fol: No Subjective Review of Systems This is a 39-year-old male with past medical history of DM 2, CHF with reduced EF came to ED with the complain of epigastric and retrosternal pain for 10 days which is worsen for last 3 days, localized, occasionally radiate on the back, sometimes pressure-like sensation, the patient rated the pain as 7/10 intensity, aggravated on any kind of exertion and mildly relieved on rest. Patient reports having shortness of breaths with the same duration which is also increase on minimal exertion or activity. Patient reported feeling fatigue with occasional dizziness, loss of appetite, decreased urination, orthopnea and bilateral leg swelling. Patient was recently discharged on 02/03/2025 with diagnosed acute on chronic systolic heart failure. CT of the abdomen and pelvis without contrast on previous admission showed a Large bilateral pleural effusions, [id number], with adjacent atelectasis and lobar collapse. Cardiomegaly and trace pericardial effusion. There was also Moderate pericholecystic edema and Moderate abdominopelvic ascites. Echo on 01/31/2025 shows remarkably dilated all cardiac chamber, severe LV and RV with global hypokinesis, left ventricular ejection fraction only 10%, severe MR and TR, and severe pulmonary hypertension. Patient currently denies any cough, headache, nausea, vomiting, diarrhea, dysuria. Patient was admitted for left heart cath which showed multivessel disease on the RCA, CX, LAD and PDA. An intra aortic balloon pump was placed after left heart catheterization for cardiac and hemodynamic support. Per cardiology team, patient should be transferred to higher level of care for high-risk PCI with surgical back up. Patient also would be candidate for heart transplant at some point. Meanwhile, if patient cant be transfered to [facility], cardiology team will be doing Impela device placement with high risk PCI. Patient seen and examined at bedside. Patient denies chest tightness, chest pain, shortness of breath, fever/chills. Dobutamine drip was discontinued overnight and patient has been so far approximately 12 hours of dobutamine maintaining a blood pressure ranging in the 95/65s. We will hold Entresto at this time since blood pressure is in the lower side and might not tolerate it. Otherwise we will continue with the empagliflozin 10 mg daily and furosemide 20 mg p.o. daily. Patient is currently working with physical therapy, walking without complications and without chest pain or shortness of breaths during exertion. Patient feels well overall. We will consider downgrade to telemetry by the end of the day. 02/26/25 The patient was examined at bedside. He reports feeling better, is eating well, and actively participating in physical therapy. He had positive bowel movements. He experiences shortness of breath during sleep with oxygen desaturation at night, requiring supplemental oxygen during nighttime. During the day, he remains on room air. Dobutamine was discontinued yesterday. Following discontinuation, his blood pressure trended low (86/61 ? 85/58) but remains stable without pressor support. Heart rate is in low 100s. Urine output is 0.78 mL/kg/hr. Joyce catheter is discontinued today. Patient denies chest pain, palpitations, dizziness, abdominal pain, nausea, or vomiting. No fever or chills reported. Brief Gist of Todays Progress, Treatment, Labs & Imaging * Progress: Clinically stable, tolerating oral intake, participating in rehab, mild nocturnal hypoxemia. * Treatment Changes: Dobutamine discontinued; joyce discontinued; continuing current cardiac and diabetic medications. * Labs: CMP and CBC unremarkable today. Electrolytes within normal limits. * Imaging: No new imaging today. * Plan: Transfer to telemetry for continued monitoring. Review of Systems (ROS) * Constitutional: Denies fever, chills, weight loss. * HEENT: No changes in vision or hearing. * Respiratory: Denies daytime shortness of breath or cough; positive for nighttime desaturation. * Cardiovascular: Denies chest pain, palpitations. * GI: Denies abdominal pain, nausea, vomiting, or diarrhea; bowel movements positive. * : No dysuria or frequency. * Musculoskeletal: No new pain; ambulating with PT. * Skin: No rashes or lesions. * Neuro: No headaches, dizziness, focal deficits. Objective vital signs Vital Sign Date Time Temp Pulse Resp B/P (MAP) Pulse Ox O2 Delivery O2 Flow Rate FiO2 02/26/25 17:50 18 98 Room Air* 0 21 02/26/25 17:49 102 02/26/25 17:00 90/65 (73) 02/26/25 16:00 98.0 98.0 Total Intake and Output 02/25/25 02/25/25 02/26/25 15:00 23:00 07:00 Intake Total 650 ml 300 ml Output Total 700 ml 750 ml Balance -50 ml -450 ml medications Current Medications Medications Dose Ordered Sig/Shanika Route Start Time Stop Time Status Last Admin Dose Admin Nitroglycerin 0.4 mg Q5MINP PRN SL 02/17/25 03:15 Empaglifozin 10 mg DAILY PO 02/17/25 10:00 02/26/25 09:06 10 MG Diagnostic Test (Pha) 1 strip ACHS 02/17/25 22:00 02/26/25 17:10 1 STRIP Insulin Human Regular ACHS SC 02/17/25 22:00 02/25/25 21:48 2 UNITS Dextrose 50 ml UD PRN IV 02/17/25 17:30 Insulin Glargine 10 units DAILY@1000 SC 02/18/25 10:00 02/26/25 09:08 10 UNITS Atorvastatin Calcium 80 mg HS PO 02/18/25 22:00 02/25/25 21:45 80 MG Acetaminophen 325 mg Q4HP PRN PO 02/18/25 10:00 02/20/25 00:52 325 MG Sennosides 8.6 mg HS PO 02/18/25 22:00 02/25/25 21:45 8.6 MG Sodium Chloride 10 ml QSHIFT@10,22 IV 02/19/25 22:00 02/26/25 09:13 10 ML Pantoprazole Sodium 40 mg DAILY IV 02/20/25 20:00 02/26/25 09:12 40 MG Aspirin 81 mg DAILY PO 02/22/25 10:00 02/26/25 09:06 81 MG Clopidogrel Bisulfate 75 mg DAILY PO 02/22/25 10:00 02/26/25 09:06 75 MG EZETIMIBE 10 mg DAILY PO 02/22/25 10:00 02/26/25 09:07 10 MG Furosemide 20 mg DAILY PO 02/25/25 10:00 02/26/25 09:06 20 MG Examination * General: Alert, oriented x3, in no acute distress. * HEENT: Normocephalic, atraumatic, moist mucosa. * Respiratory: Slightly decreased breath sounds at bases, no crackles/wheezes. * Cardiac: Regular rhythm, tachycardic (HR ~105), no murmurs. * Abdomen: Soft, non-tender, non-distended, active bowel sounds. * Extremities: No edema, pulses intact. * Skin: No rashes, lesions, or sacral edema. * Neuro: Cranial nerves intact, no focal deficits. laboratory and microbiology Laboratory Tests 02/26/25 02:45 Test 02/26/25 02:45 Range/Units Serum Glucose 83 74-106 mg/dL Microbiology Date/Time Source Procedure Growth Status 02/18/25 03:42 Nose MRSA Screen - Final Complete 02/17/25 18:20 Urine - [place] Urine Culture - Final Complete Problem List/Assessment/Plan Problem List/Assessment/Plan 1. Acute Coronary Syndrome with Multivessel Disease (POA) post-PCI with improved hemodynamics, currently stable post-dobutamine. 2. Acute on Chronic Systolic Heart Failure (HFrEF 1020%) improved, but borderline hypotension and tachycardia persist. 3. Cardiogenic Shock (resolved) previously required dobutamine, now off support but hypotensive. 4. Severe Pulmonary Hypertension continue monitoring. 5. HECTOR (likely prerenal, resolved) improved kidney function; current urine output slightly low but stable. 6. Type 2 Diabetes Mellitus with Hyperglycemia controlled on current regimen. 7. Nocturnal Hypoxemia / Suspected Sleep-related Breathing Disorder requires nighttime O?. 8. Dyslipidemia on statin therapy. 9. GERD System-Pierre Treatment Plan Cardiovascular * Transfer to [facility]-surg with telemetry for continuous monitoring. * Continue empagliflozin 10 mg PO daily, atorvastatin 80 mg PO HS, ezetimibe 10 mg PO daily, aspirin 81 mg PO daily, clopidogrel 75 mg PO daily. Continue to hold sacubitril/valsartan and due to low BP. Will try to Add Spironolactone and Metoprolol if BP improves * Monitor BP closely; maintain MAP >65. Respiratory * Supplemental O? at night as needed for nocturnal desaturation. * Encourage incentive spirometry and pulmonary hygiene. Renal * Monitor urine output, daily CMP. * Avoid nephrotoxins, maintain adequate hydration. Endocrine * Continue Lantus 10 units SC daily and sliding scale insulin. * Monitor blood glucose ACHS. GI * Continue pantoprazole 40 mg IV daily for GERD prophylaxis. * Continue cardiac diet. Infectious Disease * No active infection. Monitor for fevers. Prophylaxis * DVT: Continue heparin SQ if not contraindicated./ SCD * GI: Protonix continued. * Pressure ulcers: Continue turning and skin care. Plan discussed with: Patient My Orders My Orders Orders - VAN DANIELS Procedure Category Date Status Time Complete Blood Count LAB 02/27/25 Verified 04:00 Comprehensive LAB 02/27/25 Verified Metabolic Panel 04:00 Discontinue Joyce SANGITA 02/26/25 In Process Catheter 15:22 Dietary Evaluation Review Comments: 1) Advance to [facility] 60gm + 2gm Na diet 2) Refer Sat Tutor on DC Expected Outcomes/Goals: To meet >75% estimated needs Fu 3-5 days Date of Service: Feb 26, 2025 Billing Provider: RAFI CAMPA MD Common Visit Codes: [id number] INP/OBS CARE(HIGH) VAN DANIELS RESIDENT Feb 26, 2025 18:13 RAFI CAMPA MD Mar 01, 2025 01:48
--- NOTE | 2025-02-26 20:28 | DVHPN2 ---
Subjective Denies chest pain or shortness of breath No cardiac events reported Changes from previous H/P or p: No Changes Eyes: No Pain, No Vision change, No Conjunctivae inflammation, No Eyelid inflammation, No Other, No Redness ENT: No Ear pain, No Ear discharge, No Nose pain, No Nose discharge, No Nose congestion, No Mouth pain, No Mouth swelling, No Throat pain, No Throat swelling, No Other Cardiovascular: Chest Pain; No Palpitations; Orthopnea; No Paroxysmal Noc. Dyspnea; Edema; No Lt Headedness, No Other Respiratory: No Cough, No Dry; Shortness of breath, SOB with excertion; No Wheezing, No Hemoptysis, No Pleuritic Pain, No Sputum, No Other Gastrointestinal: No Nausea, No Vomiting; Abdominal Pain; No Diarrhea, No Constipation, No Melena, No Hematochezia, No Other Genitourinary: No Dysuria, No Frequency, No Incontinence, No Hematuria, No Retention; Other (Decreased volume of urination) Musculoskeletal: No other, No neck pain, No shoulder pain, No arm pain, No back pain, No hand pain, No leg pain, No foot pain Skin: No Rash, No Lesions, No Jaundice, No Bruising, No Other Objective Vitals Vital Signs Date Time Temp Pulse Resp B/P (MAP) Pulse Ox O2 Delivery O2 Flow Rate FiO2 02/26/25 20:00 22 97 Room Air* 0 21 02/26/25 18:00 100 100/70 (80) 02/26/25 16:00 98.0 98.0 Intake/Output Intake and Output 02/26/25 07:00 Intake Total 950 ml Output Total 1450 ml Balance -500 ml Intake Oral 950 ml Output Urine Total 1450 ml # Voids 1 General Appearance: Oriented X3 Cardiovascular: Regular rate, Normal S1, Normal S2 Medications Current Medications Medications Dose Ordered Sig/Shanika Route Start Time Stop Time Status Last Admin Dose Admin Nitroglycerin 0.4 mg Q5MINP PRN SL 02/17/25 03:15 Empaglifozin 10 mg DAILY PO 02/17/25 10:00 02/26/25 09:06 10 MG Diagnostic Test (Pha) 1 strip ACHS 02/17/25 22:00 02/26/25 17:10 1 STRIP Insulin Human Regular ACHS SC 02/17/25 22:00 02/25/25 21:48 2 UNITS Dextrose 50 ml UD PRN IV 02/17/25 17:30 Insulin Glargine 10 units DAILY@1000 SC 02/18/25 10:00 02/26/25 09:08 10 UNITS Atorvastatin Calcium 80 mg HS PO 02/18/25 22:00 02/25/25 21:45 80 MG Acetaminophen 325 mg Q4HP PRN PO 02/18/25 10:00 02/20/25 00:52 325 MG Sennosides 8.6 mg HS PO 02/18/25 22:00 02/25/25 21:45 8.6 MG Sodium Chloride 10 ml QSHIFT@10,22 IV 02/19/25 22:00 02/26/25 09:13 10 ML Pantoprazole Sodium 40 mg DAILY IV 02/20/25 20:00 02/26/25 09:12 40 MG Aspirin 81 mg DAILY PO 02/22/25 10:00 02/26/25 09:06 81 MG Clopidogrel Bisulfate 75 mg DAILY PO 02/22/25 10:00 02/26/25 09:06 75 MG EZETIMIBE 10 mg DAILY PO 02/22/25 10:00 02/26/25 09:07 10 MG Furosemide 20 mg DAILY PO 02/25/25 10:00 02/26/25 09:06 20 MG Laboratory Results Laboratory Tests 02/26/25 02:45 Chemistry Test 02/26/25 02:45 Calcium Level 9.5 mg/dL (8.7-10.4) Magnesium Level 2.3 mg/dL (1.6-2.6) Urinalysis Test 02/17/25 10:30 Urine Color Light-yellow (Yellow) Urine Clarity Clear (Clear) Urine pH 5.0 (5.0-9.0) Urine Specific [place] 1.018 (1.001-1.035) Urine Protein Negative (Negative) Urine Ketones Negative (Negative) Urine Blood Negative /uL (Negative) Urine Nitrite Negative (Negative) Urine Bilirubin Negative (Negative) Urine Urobilinogen Normal mg/dL (Negative) Urine Leukocyte Esterase Negative /uL (Negative) Urine RBC None seen /hpf (0 - 3) Urine Microscopic WBC /HPF (0-3) Urine Squamous Epithelial Cells Few /hpf (<5) Urine Bacteria None seen /hpf (None Seen) Urine Hyaline Casts Few /lpf (0 - 2) Urine Mucus Few (None Seen) Urine Glucose 4+ mg/dL (Normal) H Microbiology Microbiology Date/Time Source Procedure Growth Status 02/18/25 03:42 Nose MRSA Screen - Final Complete 02/17/25 18:20 Urine - [place] Urine Culture - Final Complete Assessment/Plan Assessment/Plan Problem List/Assessment/Plan Problem List/Assessment/Plan Cardiogenic shock status post Impella device assisted high-risk PCI Severe multivessel coronary artery disease status post PTCA of the LAD/RCA x 2DES Acute on chronic decompensated HFrEF, NYHA Class III End-stage/dilated cardiomyopathy with LVEF at 10% (per ventriculography) Pulmonary hypertension, moderate degree Severe mitral/tricuspid valve regurgitation [id number] diabetes mellitus Dyslipidemia HECTOR on CKD Obesity Plan/Recommendation (Dr. Kennedy) The patient with severe multivessel coronary artery disease and dilated cardiomyopathy with LVEF at 10% (per ventriculography) underwent a successful Impella device assisted high-risk PTCA and stenting of the LAD x 1 ANN MARIE and RCA x 1 ANN MARIE (see surgical report). Continue dual antiplatelet therapy with Plavix and aspirin. Continue guideline directed medical therapy for CHF as tolerated including ARNI (Entresto 24mg/26mg x 0.5 tab qd samples provided for a total supply of three months) and SGLT2i. We will initiate beta-mark once patient off of dobutamine drip. Add MRA (spironolactone) if tolerated by blood pressure. Continue statin and ezetimibe therapy. Continue Lasix therapy, strict I&Os, daily weight, and fluid restrictions. Monitor ECG changes closely and notify. Monitor right groin area closely and apply pressure accordingly, notify cardiology of any s/s of bleed. The patient can benefit from eventual lipoprotein studies. He will need referral for heart transplant evaluation post-procedure. Further recommendations per clinical course. Thank you for allowing us to participate in this patient's care. Please call if you have any questions or concerns. Critical care time: 40 min. This medical document was created using an electronic medical record system with voice recognition software and computerized dictation system. Although this document has been carefully reviewed, there might still be some phonetic and typographical errors. Occasional wrong-word or ``sound-alike substitutions may have occurred due to the inherent limitations of voice recognition software. These areas are purely typographical due to imperfections of the software programs and do not reflect any compromise in the patient's medical care. Please read the chart carefully and recognize, using context, where these substitutions have occurred. Plan discussed with: Patient Plan discussed with: Patient Date of Service: Feb 26, 2025 Billing Provider: TRENT KENNEDY Sr., MD Common Visit Codes: CONSULT ONLY Consultation Codes: [id number] CONSULT <45MIN RADHA GIRARD STOCK CLIPPER Feb 26, 2025 20:28
[2025-02-26] MEDS ORDERED: METOPROLOL TARTRATE 25 MG TAB PO SCH ×2 (22:00)
[2025-02-27] VITALS (9 sets, daily range): BP systolic 91–104; BP diastolic 61–69; PULSE 94–109; RESP 16–18; TEMP 96.9–98.7; O2SAT 97–100
[2025-02-27 06:57] LABS: Hematocrit 37.6 % (41.0-53.0); Hemoglobin 13.1 g/dL (13.5-17.5); Mean Corpuscular Hemoglobin 29.4 pg (28.0-32.0); Mean Corpuscular Volume 84.7 fL (80.0-100.0); Nucleated Red Blood Cells % 0.1 %
[2025-02-27 07:18] LABS: Alanine Aminotransferase 20 U/L (7-40); Alkaline Phosphatase 60 U/L (46-116); Anion Gap 9 (5-15); BUN/Creatinine Ratio 14.4 (10.0-20.0); Blood Urea Nitrogen 14 mg/dL (9-23); Calcium 9.6 mg/dL (8.7-10.4); Carbon Dioxide 28 mmol/L (20-31); Chloride 104 mmol/L (98-107); Glucose 92 mg/dL (74-106); Potassium 4.1 mmol/L (3.5-5.1); Sodium 141 mmol/L (136-145); Total Protein 6.3 g/dL (5.7-8.2)
[2025-02-27 07:19] LABS: Albumin 4.1 g/dL (3.2-4.8); Bilirubin, Total 0.8 mg/dL (0.2-1.0)
--- NOTE | 2025-02-27 10:20 | DVHPN2 ---
Consult Progress Note Subjective Other Systems: Patient in sinus tachycardia with PVCs on cardiac rn Denies any cardiac symptoms at time of assessment. Objective vital signs Vital Sign Date Time Temp Pulse Resp B/P (MAP) Pulse Ox O2 Delivery O2 Flow Rate FiO2 02/27/25 09:09 103/69 02/27/25 09:00 98.1 94 16 97 98.1 02/27/25 08:00 Room Air* 0 21 Total Intake and Output 02/26/25 02/26/25 02/27/25 15:00 23:00 07:00 Intake Total 720 ml 0 ml Output Total 601 ml 600 ml Balance 119 ml -600 ml medications Current Medications Medications Dose Ordered Sig/Shanika Route Start Time Stop Time Status Last Admin Dose Admin Nitroglycerin 0.4 mg Q5MINP PRN SL 02/17/25 03:15 Empaglifozin 10 mg DAILY PO 02/17/25 10:00 02/27/25 09:54 10 MG Diagnostic Test (Pha) 1 strip ACHS 02/17/25 22:00 02/27/25 06:28 1 STRIP Insulin Human Regular ACHS SC 02/17/25 22:00 02/26/25 21:51 3 UNITS Dextrose 50 ml UD PRN IV 02/17/25 17:30 Insulin Glargine 10 units DAILY@1000 SC 02/18/25 10:00 02/26/25 09:08 10 UNITS Atorvastatin Calcium 80 mg HS PO 02/18/25 22:00 02/26/25 21:39 80 MG Acetaminophen 325 mg Q4HP PRN PO 02/18/25 10:00 02/20/25 00:52 325 MG Sennosides 8.6 mg HS PO 02/18/25 22:00 02/26/25 21:39 8.6 MG Sodium Chloride 10 ml QSHIFT@10,22 IV 02/19/25 22:00 02/27/25 09:09 10 ML Pantoprazole Sodium 40 mg DAILY IV 02/20/25 20:00 02/27/25 09:09 40 MG Aspirin 81 mg DAILY PO 02/22/25 10:00 02/27/25 09:09 81 MG Clopidogrel Bisulfate 75 mg DAILY PO 02/22/25 10:00 02/27/25 09:08 75 MG EZETIMIBE 10 mg DAILY PO 7/23/25 10:00 02/27/25 09:10 10 MG Furosemide 20 mg DAILY PO 02/25/25 10:00 02/27/25 09:09 20 MG Examination: GENERAL:Normal, LUNGS:Normal, CVS:Normal, NEURO:Normal laboratory and microbiology Laboratory Tests 02/27/25 04:38 Test 02/27/25 04:38 Range/Units Serum Glucose 92 74-106 mg/dL Problem List/Assessment/Plan Problem List/Assessment/Plan Cardiogenic shock status post Impella device assisted high-risk PCI Severe multivessel coronary artery disease status post PTCA of the LAD/RCA x 2DES Acute on chronic decompensated HFrEF, NYHA Class III End-stage/dilated cardiomyopathy with LVEF at 10% (per ventriculography) Pulmonary hypertension, moderate degree Severe mitral/tricuspid valve regurgitation Ybd-xoecksc-llspfbeah diabetes mellitus Dyslipidemia HECTOR on CKD Obesity Plan/Recommendation (Dr. Crawford) The patient with severe multivessel coronary artery disease and dilated cardiomyopathy with LVEF at 10% (per ventriculography) underwent a successful Impella device assisted high-risk PTCA and stenting of the LAD x 1 ANN MARIE and RCA x 1 ANN MARIE (see surgical report). Continue dual antiplatelet therapy with Plavix and aspirin. Continue guideline directed medical therapy for CHF as tolerated including ARNI (Entresto 24mg/26mg x 0.5 tab qd samples provided for a total supply of three months) and SGLT2i. Beta-mark with stable BP. Add MRA (spironolactone) if tolerated by blood pressure. Continue statin and ezetimibe therapy. Continue Lasix therapy, strict I&Os, daily weight, and fluid restrictions. Monitor ECG changes closely and notify. The patient can benefit from eventual lipoprotein studies. He will need referral for heart transplant evaluation post-procedure. Further recommendations per clinical course. Thank you for allowing us to participate in this patient's care. Please call if you have any questions or concerns. This medical document was created using an electronic medical record system with voice recognition software and computerized dictation system. Although this document has been carefully reviewed, there might still be some phonetic and typographical errors. Occasional wrong-word or ``sound-alike substitutions may have occurred due to the inherent limitations of voice recognition software. These areas are purely typographical due to imperfections of the software programs and do not reflect any compromise in the patient's medical care. Please read the chart carefully and recognize, using context, where these substitutions have occurred. Plan discussed with: Patient Dietary Evaluation Review Comments: 1) Advance to [facility] 60gm + 2gm Na diet 2) Refer Business Education Professor on DC Expected Outcomes/Goals: To meet >75% estimated needs Fu 3-5 days Date of Service: Feb 27, 2025 Billing Provider: MAXIMINO PAZ Common Visit Codes: [id number] INP/OBS CARE(HIGH) MAXIMINO PAZ Feb 27, 2025 10:19
--- NOTE | 2025-02-27 15:21 | DVHPNRES ---
Progress Note Date Seen: Feb 27, 2025 Resident Creating Document: SUNSHINE CHRISTIANSON RESIDENT Has the PT tested + for MRSA If YES, has PT been informed?: No Medical Necessity Reason Pt with a Central, PICC or Fol: No Subjective Review of Systems Patient seen and examined at the bedside. Pt is ambulating, no active complaint, Systolic BP 100mmhg, started Spironalactone and metoprolol. Objective vital signs Vital Sign Date Time Temp Pulse Resp B/P (MAP) Pulse Ox O2 Delivery O2 Flow Rate FiO2 02/27/25 12:45 98.7 102 16 94/64 (74) 100 98.7 02/27/25 08:00 Room Air* 0 21 Total Intake and Output 02/26/25 02/26/25 02/27/25 15:00 23:00 07:00 Intake Total 720 ml 0 ml Output Total 601 ml 600 ml Balance 119 ml -600 ml medications Current Medications Medications Dose Ordered Sig/Shanika Route Start Time Stop Time Status Last Admin Dose Admin Nitroglycerin 0.4 mg Q5MINP PRN SL 02/17/25 03:15 Empaglifozin 10 mg DAILY PO 02/17/25 10:00 02/27/25 09:54 10 MG Diagnostic Test (Pha) 1 strip ACHS 02/17/25 22:00 02/27/25 11:30 1 STRIP Insulin Human Regular ACHS SC 02/17/25 22:00 02/27/25 12:32 3 UNITS Dextrose 50 ml UD PRN IV 02/17/25 17:30 Insulin Glargine 10 units DAILY@1000 SC 02/18/25 10:00 02/27/25 12:34 10 UNITS Atorvastatin Calcium 80 mg HS PO 02/18/25 22:00 02/26/25 21:39 80 MG Acetaminophen 325 mg Q4HP PRN PO 02/18/25 10:00 02/20/25 00:52 325 MG Sennosides 8.6 mg HS PO 02/18/25 22:00 02/26/25 21:39 8.6 MG Sodium Chloride 10 ml QSHIFT@10,22 IV 02/19/25 22:00 02/27/25 09:09 10 ML Pantoprazole Sodium 40 mg DAILY IV 02/20/25 20:00 02/27/25 09:09 40 MG Aspirin 81 mg DAILY PO 02/22/25 10:00 02/27/25 09:09 81 MG Clopidogrel Bisulfate 75 mg DAILY PO 02/22/25 10:00 02/27/25 09:08 75 MG EZETIMIBE 10 mg DAILY PO 02/22/25 10:00 02/27/25 09:10 10 MG Furosemide 20 mg DAILY PO 02/25/25 10:00 02/27/25 09:09 20 MG Metoprolol Tartrate 12.5 mg BID PO 02/27/25 22:00 Spironolactone 25 mg DAILY PO 02/28/25 10:00 Examination Patient lying in bed, in no acute distress General: Well-built, afebrile, palor, mucosae are moist Cardiovascular: Regular S1 and S2. No murmurs, gallops or rubs. No JVD elevation. No pedal edema Respiratory: B/L crackles bibasilar crackles heard on auscultation. On RA Abdomen: Soft, nontender, nondistended, normoactive bowel sounds, no rebound tenderness, no organomegaly, no masses Genitourinary: Deferred MSK/skin: Mobilizes 4 limbs. Skin is dry and warm Neurological: No motor, no sensitive deficits, normal speech. Pupils are isocoric and reactive. Psych/Mental Status: A/Ox3 laboratory and microbiology Laboratory Tests 02/27/25 04:38 Test 02/27/25 04:38 Range/Units Serum Glucose 92 74-106 mg/dL Microbiology Date/Time Source Procedure Growth Status 02/18/25 03:42 Nose MRSA Screen - Final Complete 02/17/25 18:20 Urine - [place] Urine Culture - Final Complete Labs and/or images reviewed: Labs reviewed by me, Image(s) reviewed by me Problem List/Assessment/Plan Problem List/Assessment/Plan Severe multivessel coronary artery disease status post PTCA of the LAD/RCA x 2DES Acute on Chronic Systolic Heart Failure (HFrEF 1020%) NYHA class 3 Cardiogenic Shock status post Impella device assisted high-risk PCI End-stage dilated cardiomyopathy Severe MR/TR Improving hemodynamics, off-dobutamine. Started spironolactone 25 mg daily, metoprolol 12.5mg b.i.d. Continue Jardiance 10 mg daily Continue furosemide 20 mg daily Continue aspirin, Plavix, atorvastatin Type 2 diabetes mellitus-A1c 9.9 ISS, Lantus 10 units daily Carbohydrate diet HECTOR likely prerenal superimposed on CKD Resolved Obesity Obesity hypoventilation disorder Outpatient sleep study advised GERD Pantoprazole daily Plan discussed with patient in which all questions have been answered Case discussed with Dr. Muir Plan discussed with: Patient My Orders My Orders Orders - SUNSHINE CHRISTIANSON Procedure Category Date Status Time Metoprolol Tartrate PHA 02/27/25 In Process Tablet (Lopressor Ta 22:00 Spironolactone PHA 02/28/25 In Process (Aldactone) 10:00 Dietary Evaluation Review Comments: 1) Advance to [facility] 60gm + 2gm Na diet 2) Refer Trans Router on DC Expected Outcomes/Goals: To meet >75% estimated needs Fu 3-5 days Date of Service: Feb 27, 2025 Billing Provider: RAFI CAMPA MD Common Visit Codes: [id number] INP/OBS CARE(HIGH) SUNSHINE CHRISTIANSON Feb 27, 2025 15:21 RAFI CAMPA MD Mar 01, 2025 01:54
[2025-02-27] MEDS: METOPROLOL TARTRATE 25 MG TAB PO ONE (16:27)
[2025-02-27] MEDS: SPIRONOLACTONE 25 MG TAB PO ONE (16:28)
[2025-02-27] MEDS: METOPROLOL TARTRATE 25 MG TAB PO SCH (21:38)
[2025-02-28 01:00] VITALS: BP 105/69; PULSE 105; RESP 69; TEMP 96.9; O2SAT 99
[2025-02-28 05:23] VITALS: BP 94/65; PULSE 104; RESP 17; TEMP 97.8; O2SAT 94
[2025-02-28 06:40] LABS: Anion Gap 8 (5-15); Carbon Dioxide 28 mmol/L (20-31); Chloride 105 mmol/L (98-107); Potassium 4.3 mmol/L (3.5-5.1); Sodium 141 mmol/L (136-145)
[2025-02-28 06:42] LABS: Calcium 9.7 mg/dL (8.7-10.4)
[2025-02-28 06:46] LABS: Glucose 95 mg/dL (74-106)
[2025-02-28 06:47] LABS: BUN/Creatinine Ratio 15.8 (10.0-20.0); Blood Urea Nitrogen 16 mg/dL (9-23)
[2025-02-28 08:00] VITALS: PULSE 103; PULSE 96; RESP 19; O2SAT 96
[2025-02-28] MEDS: SPIRONOLACTONE 25 MG TAB PO SCH (08:44)
[2025-02-28 08:52] VITALS: BP 99/60; PULSE 103; RESP 19; TEMP 98; O2SAT 96
[2025-02-28] MEDS ORDERED: MET25T PO (10:29)
[2025-02-28] MEDS ORDERED: ATOR20TA50 PO (10:29)
[2025-02-28] MEDS ORDERED: ASPI-325 PO (10:29)
[2025-02-28] MEDS ORDERED: EZET-10 PO (10:29)
[2025-02-28] MEDS ORDERED: CLOP75TA70 PO (10:29)
[2025-02-28 11:38] VITALS: BP 99/60; PULSE 100; RESP 18; TEMP 98.6; O2SAT 96
--- NOTE | 2025-02-28 11:46 | DVHPN2 ---
Consult Progress Note Subjective Other Systems: The patient denies any cardiac symptoms at time of assessment. Pending discharge today Objective vital signs Vital Sign Date Time Temp Pulse Resp B/P (MAP) Pulse Ox O2 Delivery O2 Flow Rate FiO2 02/28/25 11:38 98.6 100 18 96 02/28/25 08:52 99/60 (73) 02/28/25 08:00 Room Air* 0 21 Total Intake and Output 02/27/25 02/27/25 02/28/25 15:00 23:00 07:00 Intake Total 925 ml 450 ml Output Total 1050 ml 600 ml Balance -125 ml -150 ml medications Current Medications Medications Dose Ordered Sig/Shanika Route Start Time Stop Time Status Last Admin Dose Admin Nitroglycerin 0.4 mg Q5MINP PRN SL 02/17/25 03:15 Empaglifozin 10 mg DAILY PO 02/17/25 10:00 02/28/25 08:45 10 MG Diagnostic Test (Pha) 1 strip ACHS 02/17/25 22:00 02/28/25 06:00 1 STRIP Insulin Human Regular ACHS SC 02/17/25 22:00 02/27/25 17:00 2 UNITS Dextrose 50 ml UD PRN IV 02/17/25 17:30 Insulin Glargine 10 units DAILY@1000 SC 02/18/25 10:00 02/27/25 12:34 10 UNITS Atorvastatin Calcium 80 mg HS PO 02/18/25 22:00 02/27/25 21:35 80 MG Acetaminophen 325 mg Q4HP PRN PO 02/18/25 10:00 02/20/25 00:52 325 MG Sennosides 8.6 mg HS PO 02/18/25 22:00 02/26/25 21:39 8.6 MG Sodium Chloride 10 ml QSHIFT@10,22 IV 02/19/25 22:00 02/28/25 08:45 10 ML Pantoprazole Sodium 40 mg DAILY IV 02/20/25 20:00 02/28/25 08:43 40 MG Aspirin 81 mg DAILY PO 02/22/25 10:00 02/28/25 08:44 81 MG Clopidogrel Bisulfate 75 mg DAILY PO 02/22/25 10:00 02/28/25 08:44 75 MG EZETIMIBE 10 mg DAILY PO 02/22/25 10:00 02/28/25 08:45 10 MG Furosemide 20 mg DAILY PO 02/25/25 10:00 02/28/25 08:48 20 MG Metoprolol Tartrate 12.5 mg BID PO 02/27/25 22:00 02/28/25 08:44 12.5 MG Spironolactone 25 mg DAILY PO 02/28/25 10:00 02/28/25 08:44 25 MG Examination: GENERAL:Normal, LUNGS:Normal, CVS:Normal, NEURO:Normal laboratory and microbiology Laboratory Tests 02/28/25 05:37 02/27/25 04:38 Test 02/28/25 05:37 Range/Units Serum Glucose 95 74-106 mg/dL Problem List/Assessment/Plan Problem List/Assessment/Plan Cardiogenic shock status post Impella device assisted high-risk PCI Severe multivessel coronary artery disease status post PTCA of the LAD/RCA x 2DES Acute on chronic decompensated HFrEF, NYHA Class III End-stage/dilated cardiomyopathy with LVEF at 10% (per ventriculography) Pulmonary hypertension, moderate degree Severe mitral/tricuspid valve regurgitation Mcv-[id number]-[id number] diabetes mellitus Dyslipidemia HECTOR on CKD Obesity Plan/Recommendation (Dr. Crawford) The patient with severe multivessel coronary artery disease and dilated cardiomyopathy with LVEF at 10% (per ventriculography) underwent a successful Impella device assisted high-risk PTCA and stenting of the LAD x 1 ANN MARIE and RCA x 1 ANN MARIE (see surgical report). Continue dual antiplatelet therapy with Plavix and aspirin. Continue guideline directed medical therapy for CHF as tolerated including ARNI (Entresto 24mg/26mg x 0.5 tab qd samples provided for a total supply of three months) and SGLT2i. Beta-mark with stable BP. Add MRA (spironolactone) if tolerated by blood pressure. Continue statin and ezetimibe therapy. Continue Lasix therapy, strict I&Os, daily weight, and fluid restrictions. Monitor ECG changes closely and notify. The patient can benefit from eventual lipoprotein studies. He will need referral for heart transplant evaluation post-procedure. The patient will need to establish Cardiology in the outpatient setting upon discharge. Patient educated regarding medications, closely monitoring blood pressures at home, and establishing a printing assistant in the outpatient setting as soon as possible. Patient understands plan. Thank you for allowing us to participate in this patient's care. Please call if you have any questions or concerns. This medical document was created using an electronic medical record system with voice recognition software and computerized dictation system. Although this document has been carefully reviewed, there might still be some phonetic and typographical errors. Occasional wrong-word or ``sound-alike substitutions may have occurred due to the inherent limitations of voice recognition software. These areas are purely typographical due to imperfections of the software programs and do not reflect any compromise in the patient's medical care. Please read the chart carefully and recognize, using context, where these substitutions have occurred. Plan discussed with: Patient Dietary Evaluation Review Comments: 1) [facility] + 2gm Na diet 2) Refer Top Printing Press Operator on DC Expected Outcomes/Goals: To meet >75% estimated needs Fu 3-5 days Date of Service: Feb 28, 2025 Billing Provider: MAXIMINO PAZ Common Visit Codes: [id number] INP/OBS CARE(HIGH) MAXIMINO PAZ Feb 28, 2025 11:46
--- NOTE | 2025-02-28 17:43 | DVHDSRES ---
Discharge Summary Date of Admission Resident Creating Document: SUNSHINE CHRISTIANSON RESIDENT Feb 17, 2025 at 03:01 Date of Discharge: Feb 28, 2025 Labs/Diagnostic Data: Laboratory Results Test 02/28/25 11:53 02/28/25 05:37 02/27/25 04:38 02/26/25 02:45 POC Glucose 171 mg/dl (70-106) Sodium Level 141 mmol/L (136-145) Potassium Level 4.3 mmol/L (3.5-5.1) Chloride Level 105 mmol/L (98-107) Carbon Dioxide Level 28 mmol/L (20-31) Anion Gap 8 (5-15) Blood Urea Nitrogen 16 mg/dL (9-23) Creatinine 1.01 mg/dL (0.700-1.30) Glomerular Filtration Rate Calc 96 mL/min (>90) BUN/Creatinine Ratio 15.8 (10.0-20.0) Serum Glucose 95 mg/dL (74-106) Calcium Level 9.7 mg/dL (8.7-10.4) White Blood Count 4.4 10^3/uL (4.4-10.8) Red Blood Count 4.44 10^6/uL (4.5-5.90) Hemoglobin 13.1 g/dL (13.5-17.5) Hematocrit 37.6 % (41.0-53.0) Mean Corpuscular Volume 84.7 fL (80.0-100.0) Mean Corpuscular Hemoglobin 29.4 pg (28.0-32.0) Mean Corpuscular Hemoglobin Concent 34.7 g/dL (32.0-36.0) Red Cell Distribution Width 15.2 % (11.8-14.3) Platelet Count 179 10^3/uL (140-450) Mean Platelet Volume 9.2 fL (6.9-10.8) Neutrophils (%) (Auto) 52.8 % (37.0-80.0) Lymphocytes (%) (Auto) 31.5 % (10.0-50.0) Monocytes (%) (Auto) 9.0 % (0.0-12.0) Eosinophils (%) (Auto) 6.0 % (0.0-7.0) Basophils (%) (Auto) 0.7 % (0.0-2.0) Neutrophils # (Auto) 2.3 10 ^3/uL (1.6-8.6) Lymphocytes # (Auto) 1.4 10 ^3/uL (0.4-5.4) Monocytes # (Auto) 0.4 10 ^3/uL (0-1.3) Eosinophils # (Auto) 0.3 10 ^3/uL (0-0.8) Basophils # (Auto) 0 10 ^3/uL (0-0.2) Nucleated Red Blood Cells 0.1 % Total Bilirubin 0.8 mg/dL (0.2-1.0) Aspartate Amino Transferase (AST) 33 U/L (13-40) Alanine Aminotransferase (ALT) 20 U/L (7-40) Alkaline Phosphatase 60 U/L (46-116) Total Protein 6.3 g/dL (5.7-8.2) Albumin 4.1 g/dL (3.2-4.8) Magnesium Level 2.3 mg/dL (1.6-2.6) Test 02/22/25 02:30 02/21/25 13:10 02/21/25 05:45 02/21/25 02:45 Prothrombin Time 11.0 sec (9.3-11.8) Prothrombin Time INR 1.04 (0.9-1.15) Activated Partial Thromboplast Time 78.5 SEC (24.5-34.5) Homocysteine 15.3 umol/L (0.0-14.5) C-Reactive Protein High Sensitivity 6.04 mg/dL (<1.0) Erythrocyte Sedimentation Rate 13 mm/hr (0-20) Test 02/20/25 18:20 02/19/25 06:01 02/17/25 10:30 02/17/25 00:30 Lactic Acid Level 0.7 mmol/L (0.4-2.0) Phosphorus Level 4.5 mg/dL (2.4-5.1) Urine Color Light-yellow (Yellow) Urine Clarity Clear (Clear) Urine pH 5.0 (5.0-9.0) Urine Specific [place] 1.018 (1.001-1.035) Urine Protein Negative (Negative) Urine Ketones Negative (Negative) Urine Blood Negative /uL (Negative) Urine Nitrite Negative (Negative) Urine Bilirubin Negative (Negative) Urine Urobilinogen Normal mg/dL (Negative) Urine Leukocyte Esterase Negative /uL (Negative) Urine RBC None seen /hpf (0 - 3) Urine Microscopic WBC /HPF (0-3) Urine Squamous Epithelial Cells Few /hpf (<5) Urine Bacteria None seen /hpf (None Seen) Urine Hyaline Casts Few /lpf (0 - 2) Urine Mucus Few (None Seen) Urine Glucose 4+ mg/dL (Normal) Urine Opiates Screen Neg (NEGATIVE) Urine Fentanyl Screen Neg (NEGATIVE) Urine Barbiturates Screen Neg (NEGATIVE) Urine Phencyclidine Screen Neg (NEGATIVE) Urine Amphetamines Screen Neg (NEGATIVE) Urine Benzodiazepines Screen Neg (NEGATIVE) Urine Cocaine Screen Neg (NEGATIVE) Urine Cannabinoids Screen Neg (NEGATIVE) Troponin I High Sensitivity 32 ng/L (</=54) Test 02/16/25 21:47 B-Type Natriuretic Peptide 1604.62 pg/mL (0-100) Other Laboratory Tests 02/28/25 05:37 02/27/25 04:38 Brief Hx & Hospital Course: This is a 39-year-old male with past medical history of DM 2, CHF with reduced EF came to ED with the complain of epigastric and retrosternal pain for 10 days which is worsen for last 3 days, localized, occasionally radiate on the back, sometimes pressure-like sensation, the patient rated the pain as 7/10 intensity, aggravated on any kind of exertion and mildly relieved on rest. Patient reports having shortness of breaths with the same duration which is also increase on minimal exertion or activity. Patient reported feeling fatigue with occasional dizziness, loss of appetite, decreased urination, orthopnea and bilateral leg swelling. Patient was recently discharged on 02/03/2025 with diagnosed acute on chronic systolic heart failure. CT of the abdomen and pelvis without contrast on previous admission showed a Large bilateral pleural effusions, onshp-[id number]-fobm-left, with adjacent atelectasis and lobar collapse. Cardiomegaly and trace pericardial effusion. There was also Moderate pericholecystic edema and Moderate abdominopelvic ascites. Echo on 01/31/2025 shows remarkably dilated all cardiac chamber, severe LV and RV with global hypokinesis, left ventricular ejection fraction only 10%, severe MR and TR, and severe pulmonary hypertension. Patient currently denies any cough, headache, nausea, vomiting, diarrhea, dysuria. Patient was admitted for left heart cath which showed multivessel disease on the RCA, CX, LAD and PDA. An intra aortic balloon pump was placed after left heart catheterization for cardiac and hemodynamic support. Per cardiology team, patient should be transferred to higher level of care for high-risk PCI with surgical back up. Patient also would be candidate for heart transplant at some point. Meanwhile, if patient cant be transfered to [facility], cardiology team will be doing Impela device placement with high risk PCI. During the hospitalization, Echo on 01/31/2025 shows remarkably dilated all cardiac chamber, severe pulmonary hypertension, RVSP was 56. patient underwent coronary angiogram RCA has a 99% stenosis. PDA has a 90% proximal ostial lesion. Circumflex artery has a proximal 50-60% stenosis. Left anterior descending (LAD) 99% subtotal stenosis. Patient also underwent intra aortic balloon pump placement for cardiogenic/hemodynamic support. Ventriculography in the MURGUIA projection shows an EF of less than 10%. There was a dilated left ventricle. After placing the balloon pump and sutured in place the patient was sent to the intensive care unit. Subsequently, Left heart catheterization was performed with placement of Impella device before procedure. Given the patient had severe multivessel coronary artery disease and dilated cardiomyopathy with LVEF at 10% (per ventriculography) underwent a successful Impella device assisted high-risk PTCA and stenting of the LAD x 1 ANN MARIE and RCA x 1 ANN MARIE. Continue dual antiplatelet therapy with Plavix and aspirin. Impella device was removed after high-risk PCI. Patient did not tolerate Entresto and would become hypotensive. We continued furosemide 20 mg daily, started spironolactone daily and metoprolol, patient's blood pressure closely monitored, and systolic blood pressure stayed in late 90s systolic. Patient denied symptoms dizziness/lightheadedness palpitations. Strict I&Os, cardiac diet, fluid restrictions were maintained. Patient had acute kidney injury which improved with above management. Given her diabetes, we continued mild sliding scale and Lantus. Per [employer] [employer], patient will need referral for heart transplant evaluation post procedure. Patient will need to establish Cardiology in the outpatient setting upon discharge. Patient educated regarding medications, closely monitoring blood pressures at home, and establishing a [employer] in the outpatient setting as soon as possible. Patient understands plan. Thank you for allowing us to participate in this patient's care. Please call if you have any questions or concerns. Discharge plan: Resume Entresto if blood pressure permits as outpatient Continue aspirin, Plavix, atorvastatin, ezetimibe Continue metoprolol, spironolactone, please daily Patient has an appointment with Dr. Li on 03/06/25. Patient and patient's agreed upon discharge planning and the need to be seen by a laborer [employer] as soon as possible. Discharge medications provided to the patient, side effects advised, all questions and concerns answered. Operations or Procedures Operative Report - 2 Report Details Date: 02/17/25 Preop Diagnosis: Coronary artery disease Postop Diagnosis: Coronary artery disease. Severe cardiomyopathy. Triple-vessel disease. Surgeon: Trent Kennedy MD Anesthesiologist: Conscious sedation Anesthesia: Mac, Local Consent: The patient was informed of the risks and benefits of the procedure. These include but are not limited to complications of anesthesia, postoperative infection, incomplete relief of symptoms, recurrence of symptoms, damage to blood vessels, nerves and tendons, deep venous thrombosis, pulmonary embolism and possible need for repeat surgery in the future. Complications: No complications Findings: Severe coronary artery disease. Indications for Surgery: Chest pain. Cardiomyopathy. Name of Procedure Performed Left heart catheterization. Bilateral cine coronary angiography. Left ventriculography. Intra-aortic balloon pump placement. Procedure Details Procedure Details: Prior local anesthesia with 2% lidocaine to the right wrist and full informed consent obtained the patient was prepped and draped in the usual fashion followed by a six Mosotho sheath placed in the radial artery. This was followed by placing a multipurpose catheter into the left ventricle RCA and left main for angiographic evaluation and ventriculography. Subsequent ANTWON angiography we placed an intra-aortic balloon pump through the right femoral artery. This was placed successfully under fluoroscopic guidance with adequate functional. This was sutured with 0 Ethibond. Hemodynamics: Aortic blood pressure was 80/40. End-diastolic pressure was 25-30 mmHg. Coronary anatomy. The RCA is a large vessel. It has a 99% stenosis of the posterolateral/posterolateral branch bifurcation. The PDA has a 90% proximal ostial lesion. Severely diseased in its midportion. The posterolateral branches are severely diseased and rather small. Left main is large and normal. The circumflex is a medium caliber vessel. It has a proximal 50-60% stenosis . The 1st marginal has moderate plaquing however no critical lesions. The 2nd marginal is also free of significant disease. Distal to the 2nd marginal there was of 30-40% stenosis. Third marginal/posterolateral branch has a 95% proximal stenosis. The distal circumflex ends in the AV groove. Left anterior descending coronary artery is a medium caliber vessel. And has a 99% subtotal stenosis with minimal flow to the mid and distal segments. There was LINK grade 1 flow. Ventriculography in the MURGUIA projection shows an EF of less than 10%. There was a dilated left ventricle. After placing the balloon pump and sutured in place the patient was sent to the intensive care unit. Impression elevated left ventricular end-diastolic pressure was with markedly decreased left ventricular ejection fraction. Three-vessel coronary artery disease as mentioned. Recommendations: Patient was a very high-risk for interventional procedures. Henceforth the balloon pump was placed to alleviate symptoms and improve filling pressures. We will attempt to transfer to higher level of care. The patient becomes unstable we may need urgent angioplasty of the LAD possible Impella placement. Condition Guarded Disposition 2 Still a Patient Operative Report - 2 Report Details Date: 02/22/25 Preop Diagnosis: Coronary artery disease Postop Diagnosis: Coronary artery disease. Severe cardiomyopathy. Triple-vessel disease. Successful PTCA and stenting of left anterior descending coronary artery and distal RCA/PDA. Successful removal of intra-aortic balloon pump. Successful placement of Impella device pre PTCA and stenting. Successful removal of Impella device postprocedure. Surgeon: Trent Kennedy MD Anesthesiologist: Conscious sedation Anesthesia: Mac, Local Consent: The patient was informed of the risks and benefits of the procedure. These include but are not limited to complications of anesthesia, postoperative infection, incomplete relief of symptoms, recurrence of symptoms, damage to blood vessels, nerves and tendons, deep venous thrombosis, pulmonary embolism and possible need for repeat surgery in the future. Complications: No complications Estimated Blood Loss: 20 cc Findings: Severe CAD involving the LAD and RCA/PDA. Severe ischemic cardiomyopathy. Severely Elevated left ventricular end-diastolic pressures. Indications for Surgery: Severe ischemic cardiomyopathy. Triple-vessel disease. Name of Procedure Performed Intra-aortic balloon pump removal. Placement of Impella device. PTCA and stenting of LAD and RCA/PDA. Procedure Details Procedure Details: Prior local anesthesia with 2% lidocaine to the right groin over the pre- existing intra-aortic balloon pump sheath patient was prepped and draped in the usual fashion. We placed a 018 wire into the balloon pump. An effort was made to remove the balloon pump however this was unsuccessful for which we removed the balloon pump along with the sheath and retained in 018 wire. We then placed a eight Mosotho dilator and removed the 018 wire and placed in 035 J curved wire through which we then dilated with a 10 Mosotho sheath and subsequently placed a 12 Mosotho Impella catheter into the right femoral artery successfully. Prior to this we used two Perclose devices. The Impella was then placed successfully. Was successfully functional at P5 at a proximally gradient than 3.5 L/min. Through the existing Impella catheter we placed a seven Mosotho sheath and subsequently a six Mosotho three five EBU guide into the left main. We used a whisper wire to cross the area of stenosis in the proximal LAD which was 99% with LINK one flow or less. We used a two five balloon to pre dilate. There was notably improved flow. We then placed a 3-0 by 22 mm stent into the proximal left anterior descending coronary artery at a proximally 14 atmospheres with excellent antegrade flow without thrombus formation and/or dissection. LINK three flow was noted. We performed fractional flow reserve evaluation of the circumflex however the circumflex distal distribution was rather small for which we then opted to treat this medically. Once we revascularize the left anterior descending coronary artery successfully and patient remained hemodynamically stable we then addressed the RCA by wiring it with the same whisper wire. We placed the wire distally into the distal RCA/PDA and placed a 2-0 balloon. We pre-dilated the 99% stenosis of the distal RCA/PDA. There was notably improved flow. We then placed a 2-0 by 15 mm stent into the RCA/PDA segment. There was notably improved flow subsequent to the deployment of the stent at a proximally 12 atmospheres. We post dilated the proximal segment of the stent which was in the distal RCA prior to the origin of the PDA 2-0 proximally 20 atmospheres. There was notably improved flow to a LINK three characteristics. After adequate revascularization of the LAD and the RCA we monitored the patient and found that it was viable to pull the Impella device successfully with minimal problems. The patient's hemodynamics were stable. Upon lowering the Impella to a P1 we pulled it and placed it at P1 to P2 until it was removed. The Perclose devices were in place for which we then pulled the large Impella sheath successfully. The patient tolerated the procedure well there were no complications. Impression successful PTCA and stenting of the left anterior descending coronary artery and the distal RCA/PDA. Successful removal of intra-aortic balloon pump. Successful placement of Impella device with subsequent removal. Patient remained hemodynamically stable throughout. Recommendations factor modification. Continue dual antiplatelet therapy. Condition Guarded Disposition 2 Still a Patient Date of Service: Feb 22, 2025 Billing Provider: TRENT KENNEDY Sr., MD Cardiology Common Codes: 21346-RECDYOV INP/OBS CARE (High) Cardiology Procedure Codes: 45464 -PTCA W/STENT PLACEMENT, 14394-VXAF ADD CORONARY BRANCH, 83152-VLFV HEART CATH W/INTRA INJ (Intra-aortic balloon pump removal. Placement and removal of Impella device perioperatively. PTCA and stenting of the LAD and RCA/PDA.) TRENT KENNEDY Sr., MD Feb 22, 2025 09:50 DICTATED BY:TRENT KENNEDY Sr., MD DICTATED DATE/TIME:02/22/25 0950 ELECTRONICALLY SIGNED BY:TRENT KENNEDY Sr., MD 02/22/25 0950 ELECTRONICALLY CO-SIGNED BY: Condition at Discharge: Guarded Final Diagnosis/Problems List Acute Cardiogenic shock status post Impella device assisted high-risk PCI Severe multivessel coronary artery disease status post PTCA x 2DES Acute on chronic decompensated HFrEF, NYHA Class III End-stage/dilated cardiomyopathy with LVEF at 10% (per ventriculography) Pulmonary hypertension, moderate degree Severe mitral/tricuspid valve regurgitation Type 2 Diabetes mellitus with hyperglycemia Dyslipidemia HECTOR likely vasomotor superimposed on CKD Obesity Discharge Disposition: Home Discharge Instruct/Medications Diet: Cardiac 2g Na,low cholest Activity: Light activity Follow Up/Referral: Follow up with [employer] at higher level of care as soon as possible Follow up with primary care physician within 7 days Follow up with discharge clinic appointment within 7 days Medications: Continue aspirin and Plavix daily Continue Jardiance 10 mg daily, metoprolol 12.5 mg twice daily, spironolactone 25 mg daily Continue furosemide 20 mg daily Continue atorvastatin 80 mg and ezitimide 10 mg daily Scheduled Aspirin (Aspirin Low Dose), 81 MG PO DAILY Atorvastatin Calcium (Atorvastatin Calcium), 80 MG PO HS Clopidogrel Bisulfate (Clopidogrel), 75 MG PO DAILY Empagliflozin (Jardiance), 10 MG PO DAILY Ezetimibe (Ezetimibe), 10 MG PO DAILY Furosemide (Furosemide), 1 TAB PO DAILY Metformin Hydrochloride (Metformin Hcl), 1 TAB PO TID, (Reported) Metoprolol Tartrate (Lopressor), 12.5 MG PO BID Spironolactone (Spironolactone), 1 TAB PO DAILY Discontinued Medications Metoprolol Succinate (Metoprolol Succinate Er), 1 TAB PO DAILY Discharge Statement: "Patient was advised to return to the ER or call 911 if any headaches, dizziness, shortness of breath, chest pain, abdominal pain, bleeding, fevers, or worsening of medical condition. Patient was counseled about treatment plan, medications, possible side effects, patientverbalized understanding. All questions were answered to the best of my ability. This discharge took greater then 30 minutes in planning, reviewing documentation, counseling the patient, and discussing with other team members." ASSESSMENT ASSESSMENT Assessment Severe multivessel coronary artery disease status post PTCA of the LAD/RCA x 2DES Acute on Chronic Systolic Heart Failure (HFrEF 1020%) NYHA class 3 Cardiogenic Shock status post Impella device assisted high-risk PCI Date of Service: Feb 28, 2025 Billing Provider: RAFI CAMPA MD Common Visit Codes: 72194-OCY/OBS DISCH DAY >30min SUNSHINE CHRISTIANSON Feb 28, 2025 17:43 RAFI CAMPA MD Mar 01, 2025 22:03
== END 2025-02-28 13:55 | disposition home or self-care (01) | DRG 216 ==
LOC: ER 21:40 → OVERFLOW 02-17 03:01 → ICU WEST 02-17 17:49 → TELE-CENTR 02-26 22:37
PROVIDERS: ADMIT Student in an Organized Health Care Education/Training Program; ATTEND Student in an Organized Health Care Education/Training Program
PROC: 5A02210 Assistance with Cardiac Output using Balloon Pump, Continuous (ICD-10-PCS; principal; 2025-02-17)
PROC: 4A023N7 Measurement of Cardiac Sampling and Pressure, Left Heart, Percutaneous Approach (ICD-10-PCS; 2025-02-17)
PROC: B211YZZ Fluoroscopy of Multiple Coronary Arteries using Other Contrast (ICD-10-PCS; 2025-02-17)
PROC: B215YZZ Fluoroscopy of Left Heart using Other Contrast (ICD-10-PCS; 2025-02-17)
PROC: 02HV33Z Insertion of Infusion Device into Superior Vena Cava, Percutaneous Approach (ICD-10-PCS; 2025-02-19)
PROC: B548ZZA Ultrasonography of Superior Vena Cava, Guidance (ICD-10-PCS; 2025-02-19)
PROC: 02HA3RJ Insertion of Short-term External Heart Assist System into Heart, Intraoperative, Percutaneous Approach (ICD-10-PCS; 2025-02-22)
PROC: 5A0221D Assistance with Cardiac Output using Impeller Pump, Continuous (ICD-10-PCS; 2025-02-22)
PROC: 027135Z Dilation of Coronary Artery, Two Arteries with Two Drug-eluting Intraluminal Devices, Percutaneous Approach (ICD-10-PCS; 2025-02-22)
PROC: 4A033BC Measurement of Arterial Pressure, Coronary, Percutaneous Approach (ICD-10-PCS; 2025-02-22)
DX: I25.10 Atherosclerotic heart disease of native coronary artery without angina pectoris (principal); I50.23 Acute on chronic systolic (congestive) heart failure; N17.0 Acute kidney failure with tubular necrosis; R57.0 Cardiogenic shock; J91.8 Pleural effusion in other conditions classified elsewhere; E66.2 Morbid (severe) obesity with alveolar hypoventilation; E11.22 Type 2 diabetes mellitus with diabetic chronic kidney disease; I42.0 Dilated cardiomyopathy; N18.9 Chronic kidney disease, unspecified; I27.20 Pulmonary hypertension, unspecified; K21.9 Gastro-esophageal reflux disease without esophagitis; E11.65 Type 2 diabetes mellitus with hyperglycemia; E78.5 Hyperlipidemia, unspecified; I07.1 Rheumatic tricuspid insufficiency; I25.5 Ischemic cardiomyopathy; Z79.84 Long term (current) use of oral hypoglycemic drugs; Z79.899 Other long term (current) drug therapy; Z68.29 Body mass index [BMI] 29.0-29.9, adult
CPT/HCPCS: 33967; 33990; 36415; 36569; 71045; 80048; 80053; 80307; 81001; 82962; 83090; 83605; 83735; 83880; 84100; 84484; 85025; 85610; 85652; 85730; 86141; 86850; 86900; 86901; 87081; 87086; 92928; 92929; 93005; 93306; 93458; 93571; 96365; 96375; 97110; 97116; 97163; 97530; 99152; C1887; C1894; G0378; J1815; J2250; J2405; J2470; J3480; Q9967

== ENCOUNTER 2025-04-17 09:55 | Outpatient (CLI) | payer OTHER ==
[~2025-04-17 09:55] MED LIST changes: +ASPI-325 PO; +ATOR20TA50 PO; +CLOP75TA70 PO; +EZET-10 PO; +MET25T PO; +METF-370 PO; -METO25TA93 PO
[2025-04-17 10:55] LABS: Chloride 104 mmol/L (98-107); Sodium 140 mmol/L (136-145)
[2025-04-17 10:56] LABS: Anion Gap 8 (5-15); Calcium 9.8 mg/dL (8.7-10.4); Carbon Dioxide 28 mmol/L (20-31)
[2025-04-17 11:01] LABS: BUN/Creatinine Ratio 13.6 (10.0-20.0); Blood Urea Nitrogen 14 mg/dL (9-23)
[2025-04-17 11:22] LABS: Glucose 108 mg/dL (74-106)
[2025-04-17 11:26] LABS: Potassium 5.6 mmol/L (3.5-5.1)
== END 2025-04-17 17:00 | disposition home or self-care (01) ==
LOC: LAB 09:55
PROVIDERS: ATTEND Internal Medicine
DX: Z98.61 Coronary angioplasty status (principal)
CPT/HCPCS: 36415; 80048

== ENCOUNTER 2025-04-17 16:15 | Emergency (ER) | payer OTHER ==
[~2025-04-17] VITALS: Ht 170.2 cm; Wt 78.7 kg
[2025-04-17 16:17] VITALS: BP 129/79; RESP 18; TEMP 97.7; O2SAT 100
[2025-04-17 16:34] VITALS: PULSE 72
--- NOTE | 2025-04-17 16:38 | ECG ---
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
[2025-04-17 17:37] LABS: Hematocrit 37.0 % (41.0-53.0); Hemoglobin 12.7 g/dL (13.5-17.5); Mean Corpuscular Hemoglobin 29.3 pg (28.0-32.0); Mean Corpuscular Volume 85.3 fL (80.0-100.0); Nucleated Red Blood Cells % 0.1 %
[2025-04-17 17:45] LABS: Chloride 103 mmol/L (98-107); Potassium 4.5 mmol/L (3.5-5.1); Sodium 140 mmol/L (136-145)
[2025-04-17 17:46] LABS: Anion Gap 10 (5-15); Calcium 9.3 mg/dL (8.7-10.4); Carbon Dioxide 27 mmol/L (20-31)
--- NOTE | 2025-04-17 17:48 | ED.PDOC ---
History of Present Illness HPI Comments HPI: 39 year old female presents to the emergency department with a chief complaint of abnormal labs onset today (04/17/25). Patient states he had blood drawn this morning, was called by PCP, told him to come to ED due to elevated potassium levels. Patient states he currently has not complaints. Denies chest pain, shortness of breath, dizziness, fever, chills, nausea, vomiting, diarrhea, headache, numbness/tingling. No other symptoms or modifying factors present at this time. Initial Vitals BP: 129/79 HR: 80 RR: 18 O2: 100% Temp: 97.7 F Past Medical History: CAD,CHF, DM, HTN Past Surgical History: cardiac stent Social History: Denies ETOH, smoking, and drug use. Medications: Aspirin Allergies: NKDA HPI: Poor Historian. Past Medical History: Past Surgical History: REVIEW OF SYSTEMS: CONSTITUTIONAL: Denies acute: fever, diaphoresis, chills, generalized weakness. HEAD: Denies acute: headache, photophobia Eyes: Denies acute: Double vision, vision loss, eye pain, eye discharge. EARS: Denies acute: tinnitus, hearing loss, ear discharge, ear pain, THROAT: Denies acute: sore throat, swelling, difficulty swallowing , pain with swallowing, change in voice. NECK: Denies acute: neck pain, neck swelling, stiff neck. HEART: Denies acute : chest pain, palpitations, LUNGS: Denies acute: SOB, wheezing, cough, hemoptysis ABDOMEN: Denies acute: abdominal pain, Nausea, Vomiting, diarrhea, melena , hematemesis, hematochezia SKIN: Denies acute: rash, redness, lesions, itchiness. EXTREMITIES: Denies acute: calf pain, numbness, tingling, weakness, denies pain in extremity. Denies acute: Low back pain. Neuro: Denies acute: focal neurological deficit, motor or sensory focal neurological deficit, tremors, seizure like activity, confusion, dizziness, change in mental status, loss of bowel or bladder function, cauda equina like symptoms. : Denies acute: dysuria, hematuria, flank pain, increase in urinary frequency. PSYCH: Denies acute: hallucination, suicidal ideation, homicidal ideation. PHYSICAL EXAM: General: -----no---acute distress, awake and alert. Head: normocephalic, atraumatic. Neck: supple, trachea is midline, no swelling. Throat: Normal phonation. Eyes:, no erythema, no purulent discharge, no proptosis, no icterus. Heart: regular rate, regular rhythm, no significant murmur appreciated. Lungs: no apparent respiratory distress, Able to speak in full sentences. No wheezing, no rhonchi, no crackles. No stridors Clear to auscultation bilaterally. Abdomen: non tender to palpation, non distended, soft, no guarding, no rebound, + bowel sounds. Neuro: Awake, Alert, oriented to name, self, situation, follows commands GCS=15. Speech is normal. Skin: no petechia, no purpura, no cyanosis, non-pale, not jaundice. Lower extremities: --no - Pitting edema no deformity, no focal swelling, no calf TTP. Makes eye contact. moves all four extremities. Face: no apparent facial droop. Ambulating in the ED independently. ED COURSE: DISCLAIMER: This medical document was created using an electronic medical record system with voice recognition software and computerized dictation system. Although this document has been carefully reviewed, there might still be some phonetic and typographical errors. Occasional wrong-word or "sound-alike" substitutions may have occurred due to the inherent limitations of voice recognition software. These areas are purely typographical due to imperfections of the software programs and do not reflect any compromise in the patient's medical care. Please read the chart carefully and recognize, using context, where these substitutions have occurred. Chief Complaint: Abnormal LAB's Time Seen by MD: 17:30 Reviewed Notes: Medications, Allergies Allergies: Coded Allergies: NO KNOWN ALLERGIES (Unverified , 01/31/25) Home Meds Active Scripts Metoprolol Tartrate (Lopressor) 25 Mg Tb, 12.5 MG PO BID for 30 Days, #30 TAB Prov:SUNSHINE CHRISTIANSON RESIDENT 02/28/25 Ezetimibe (Ezetimibe) 10 Mg Tab, 10 MG PO DAILY for 30 Days, #30 TAB Prov:SUNSHINE CHRISTIANSON RESIDENT 02/28/25 Clopidogrel Bisulfate (CLOPIDOGREL) 75 Mg Tab, 75 MG PO DAILY for 30 Days, #30 TAB Prov:SUNSHINE CHRISTIANSON RESIDENT 02/28/25 Atorvastatin Calcium (ATORVASTATIN CALCIUM) 20 Mg Tab, 80 MG PO HS for 30 Days, #120 TAB Prov:SUNSHINE CHRISTIANSON RESIDENT 02/28/25 Aspirin (Aspirin Low Dose) 81 Mg Tab, 81 MG PO DAILY for 30 Days, #30 TAB Prov:SUNSHINE CHRISTIANSON RESIDENT 02/28/25 Spironolactone (Spironolactone) 25 Mg Tab, 1 TAB PO DAILY for 30 Days, #30 TAB 1 Refill Prov:ERIKAERICKA GIORGIO [place] RESIDENT 02/04/25 Furosemide (Furosemide) 20 Mg Tab, 1 TAB PO DAILY for 30 Days, #30 TAB 1 Refill Prov:EVELIO [place] RESIDENT 02/04/25 Empagliflozin (Jardiance) 10 Mg Tab, 10 MG PO DAILY for 30 Days, #30 TAB Prov:EVELIO GIORGIO [place] RESIDENT 02/04/25 Reported Medications Metformin Hydrochloride (Metformin Hcl) 500 Mg Tab, 1 TAB PO TID, #60 TAB 3 Refills 02/17/25 Information Source: Patient Mode of Arrival: Ambulatory Severity: Moderate Timing: Hours Duration: Since onset Prehospital treatment: None Past Medical History PAST MEDICAL HISTORY: CAD, CHF, DM, HTN Surgical History: PTCA Family History Family History: Reviewed,noncontributory to illness Social History Smoker: Non-Smoker Alcohol: Denies ETOH Use Drugs: Denies Drug Use Lives In: Home Was a procedure done? Was a procedure done?: No X-Ray, Labs, Meds, VS Vital Signs Date Time Temp Pulse Resp B/P (MAP) Pulse Ox O2 Delivery O2 Flow Rate FiO2 04/17/25 16:34 72 04/17/25 16:17 97.7 80 18 129/79 100 97.7 Lab Test 04/17/25 17:14 Range/Units White Blood Count 4.9 4.4-10.8 10^3/uL Red Blood Count 4.34 L 4.5-5.90 10^6/uL Hemoglobin 12.7 L 13.5-17.5 g/dL Hematocrit 37.0 L 41.0-53.0 % Mean Corpuscular Volume 85.3 80.0-100.0 fL Mean Corpuscular Hemoglobin 29.3 28.0-32.0 pg Mean Corpuscular Hemoglobin Concent 34.4 32.0-36.0 g/dL Red Cell Distribution Width 16.1 H 11.8-14.3 % Platelet Count 157 140-450 10^3/uL Mean Platelet Volume 9.2 6.9-10.8 fL Neutrophils (%) (Auto) 56.1 37.0-80.0 % Lymphocytes (%) (Auto) 28.9 10.0-50.0 % Monocytes (%) (Auto) 9.9 0.0-12.0 % Eosinophils (%) (Auto) 4.5 0.0-7.0 % Basophils (%) (Auto) 0.6 0.0-2.0 % Neutrophils # (Auto) 2.7 1.6-8.6 10 ^3/uL Lymphocytes # (Auto) 1.4 0.4-5.4 10 ^3/uL Monocytes # (Auto) 0.5 0-1.3 10 ^3/uL Eosinophils # (Auto) 0.2 0-0.8 10 ^3/uL Basophils # (Auto) 0 0-0.2 10 ^3/uL Nucleated Red Blood Cells 0.1 % Sodium Level 140 136-145 mmol/L Potassium Level 4.5 3.5-5.1 mmol/L Chloride Level 103 98-107 mmol/L Carbon Dioxide Level 27 20-31 mmol/L Anion Gap 10 5-15 Blood Urea Nitrogen 19 9-23 mg/dL Creatinine 1.06 0.700-1.30 mg/dL Glomerular Filtration Rate Calc 90 >90 mL/min BUN/Creatinine Ratio 17.9 10.0-20.0 Serum Glucose 162 H 74-106 mg/dL Calcium Level 9.3 8.7-10.4 mg/dL Magnesium Level 2.1 1.6-2.6 mg/dL Troponin I High Sensitivity 18 </=54 ng/L Time of 1ST Reevaluation: 18:00 Reevaluation 1ST: Unchanged Patient Education/Counseling: Diagnosis, Treatment Family Education/Counseling: No Family Present Departure 1 Departure Time of Disposition: 18:03 Impression: Primary Impression: Hyperkalemia Disposition: 01 HOME / SELF CARE / HOMELESS Condition: Stable Additional Instructions: Additional instructions: Please read all instructions provided in this packet carefully. You MUST follow-up with your primary care/family doctor in 1 to 2 days. If you are unable to see your primary care/family doctor, please return to our emergency room for re-assessment and re-evaluation in 1 to 2 days. Return to the emergency room here in our facility or to the nearest ER [facility] if your symptoms change or worsen. CONSULTATIONS: you MUST Follow-up for consultation as soon as possible with: -cardiology in 1-2 days. Please call for appointment You MUST call the consultants office yourself to make an appointment. You may need to arrange that through your insurance and/or your primary/family doctor. If you are unable to see the community resource consultant in 1 to 2 days, you must return to our emergency room (or any other ER of your choice) for re-assessment and re-evalua tion. Adequate fluid hydration. Your potassium level is normal here today. Although you have been discharged from the Emergency Department, this does not mean that you have a "clean bill of health". No definitive diagnosis for your symptoms has been made today. It is possible that you are in the process of developing a serious illness. This is why you must return to the ED without fail if any new or worsening symptoms develop. Discharged With: Self Critical Care Note Critical Care Time?: No I personally scribed for ANT BURGESS DO ([email or web address]) on 04/17/25 at 17:48. Electronically submitted by Lacey Ureña ([email or web address]). ANT BURGESS DO Apr 17, 2025 17:48
[2025-04-17 17:51] LABS: BUN/Creatinine Ratio 17.9 (10.0-20.0); Blood Urea Nitrogen 19 mg/dL (9-23)
[2025-04-17 17:52] LABS: Glucose 162 mg/dL (74-106); Magnesium 2.1 mg/dL (1.6-2.6)
== END 2025-04-17 18:28 | disposition home or self-care (01) ==
LOC: ER 16:15
DX: E87.5 Hyperkalemia (principal); R79.9 Abnormal finding of blood chemistry, unspecified; I11.0 Hypertensive heart disease with heart failure; I50.9 Heart failure, unspecified; E11.9 Type 2 diabetes mellitus without complications; Z79.82 Long term (current) use of aspirin; Z79.84 Long term (current) use of oral hypoglycemic drugs; Z79.899 Other long term (current) drug therapy; Z95.5 Presence of coronary angioplasty implant and graft
CPT/HCPCS: 36415; 80048; 83735; 84484; 85025; 93005

== ENCOUNTER 2025-06-19 10:20 | Outpatient (CLI) | payer OTHER ==
[2025-06-19 11:18] LABS: Triglycerides 112 mg/dL (< 150)
[2025-06-19 11:20] LABS: Cholesterol 98 mg/dL (< 200)
[2025-06-19 11:24] LABS: HDL Cholesterol 38 mg/dL (40-59)
== END 2025-06-19 17:00 | disposition home or self-care (01) ==
LOC: LAB 10:20
PROVIDERS: ATTEND Internal Medicine
DX: I11.0 Hypertensive heart disease with heart failure (principal); I50.9 Heart failure, unspecified; E11.9 Type 2 diabetes mellitus without complications; E78.5 Hyperlipidemia, unspecified
CPT/HCPCS: 36415; 80061